=== PATIENT | female | born 1970 | race Caucasian/White ===

== ENCOUNTER → 2020-02-25 13:58 | Outpatient (BNVA) | payer OTHER, SELFPAY | PROVIDERS: Visit Provider Internal Medicine | DX: R51 Headache (principal); R11.10 Vomiting, unspecified; C50.919 Malignant neoplasm of unspecified site of unspecified female breast; R53.83 Other fatigue; R73.03 Prediabetes; D49.6 Neoplasm of unspecified behavior of brain; Z78.0 Asymptomatic menopausal state | CPT/HCPCS: 99205 ==

== ENCOUNTER 2020-02-25 14:57 | Emergency (ER) | payer OTHER, SELFPAY ==
[2020-02-25 15:01] VITALS: BP 135/65; PULSE 101; RESP 18; TEMP 36.9; O2SAT 96; BMI 35.4
[2020-02-25 15:42] LABS: Basophils # 0.1 10^3/uL (0.0-0.1); Basophils % 0.7 %; Eosinophils # 0.2 10^3/uL (0.0-0.8); Eosinophils % 1.5 %; Hematocrit 40.3 % (37.0-47.0); Hemoglobin 13.2 g/dL (11.5-15.3); Lymphocytes # 2.5 10^3/uL (0.8-4.8); Lymphocytes % 25.1 %; Mean Corpuscular HGB Conc 32.8 g/dL (30.0-36.0); Mean Corpuscular Hemoglobin 28.8 pg (28.0-34.0); Mean Platelet Volume 9.5 fL (7.4-10.4); Monocytes # 0.6 10^3/uL (0.2-0.9); Monocytes % 6.2 %; Neutrophils # 6.62 10^3/uL (1.8-7.7); Neutrophils % 66.3 %; Nucleated Red Blood Cells % 0 %; Platelet Count 404 10^3/cmm (130-400); Red Blood Count 4.58 10^6/uL (4.1-5.3); Red Cell Distribution Width 13.5 % (12.1-15.1)
--- NOTE | 2020-02-25 15:44 | W.ED.HA ---
Documented by User: FAYE Foster 02/25/20 15:46 HPI - Headache General: Chief Complaint: Headache Stated Complaint: sob Time Seen by Provider: 02/25/20 15:44 History of Present Illness: HPI Narrative: Patient complains with daily headaches since being placed on Effexor by [employer]. Patient is stopped the medication her headaches have continued and she is vomiting now. Mother of brain tumor age 40. This patient's had a history of breast cancer. Are concerned about possible tumor. Is having some balance problems presently. 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 Patient says she vomits when her headache gets real bad has no history of migraines. MD elicited complaint: headache Onset (ago): week(s) Onset description: gradually (Since starting medication) Location: band-like Severity: moderate Quality & Timing: aching and steady Associated symptoms: Reports no associated symptoms, nausea and vomiting; Deny chest pain, fever(s) or rash Review of Systems Narrative: Fatigue Const: Denies: fever(s), chills or body aches Eyes: Denies: change in vision or blurry vision ENMT: Denies: throat pain or nasal congestion Card: Denies: chest pain or dyspnea on exertion Resp: Denies: dyspnea, productive cough or non-productive cough GI: Reports: nausea and vomiting; Denies: abdominal pain Musc: Denies: extremity pain Skin/Breast: Denies: rash Neuro: Reports: headache(s) Psych: Denies: anxiety or depression Walter/Lymph: Denies: easy bruising PFSH ED PFSH: Medical History (Updated 02/25/20 @ 18:06 by Tita Ford MD) Breast cancer in female Surgical History Hx of mastectomy Family History Mother Cancer brain Father Pulmonary fibrosis Social History Smoking and tobacco status: never smoked Second hand smoke exposure: No Alcohol intake: never Physical Exam Const: COMMON NORMALS: no acute distress, average body habitus and patient oriented x3 HENMT: COMMON NORMALS: normocephalic HEAD & SCALP: normal to inspection and normocephalic FACE & SINUS: normal facial exam Eye: COMMON NORMALS: conjunctivae normal GENERAL EYE: appearance normal, both eyes and all related structures CONJUNCTIVA: Yes conjunctivae normal Neck/C-Spine: COMMON NORMALS: no JVD Chest: COMMONS NORMALS: normal inspection of the chest Resp: COMMON NORMALS: normal respiratory effort and clear to auscultation bilaterally AUSCULTATION: clear to auscultation bilaterally Cardio: COMMON NORMALS: no JVD, regular rate and regular rhythm RATE: regular rate RHYTHM: regular rhythm GI: COMMON NORMALS: Normal to inspection, nondistended, normoactive bowel sounds present Extremity: COMMON NORMALS: normal to inspection and full ROM Neuro: COMMON NORMALS: patient oriented x3 Course Vital Signs: Vital signs: Vital Signs Temperature 98.4 F 02/25/20 17:59 Pulse Rate 75 02/25/20 17:59 Respiratory Rate 20 H 02/25/20 17:59 Blood Pressure 143/97 02/25/20 17:59 Pulse Oximetry 99 02/25/20 17:59 MDM - Headache Lab Data: Labs: Lab Results 02/25/20 02/25/20 Range/Units 15:34 15:34 WBC 10.0 (4.0-10.0) 10^3/ uL RBC 4.58 (4.1-5.3) 10^6/u L Hgb 13.2 (11.5-15.3) g/dL Hct 40.3 (37.0-47.0) % MCV 88.0 (81-99) fL MCH 28.8 (28.0-34.0) pg MCHC 32.8 (30.0-36.0) g/dL RDW 13.5 (12.1-15.1) % Plt Count 404 H (130-400) 10^3/c mm MPV 9.5 (7.4-10.4) fL Neut % (Auto) 66.3 % Lymph % (Auto) 25.1 % Garden % (Auto) 6.2 % Eos % (Auto) 1.5 % Baso % (Auto) 0.7 % Neut # (Auto) 6.62 (1.8-7.7) 10^3/u L Lymph # (Auto) 2.5 (0.8-4.8) 10^3/u L Garden # (Auto) 0.6 (0.2-0.9) 10^3/u L Eos # (Auto) 0.2 (0.0-0.8) 10^3/u L Baso # (Auto) 0.1 (0.0-0.1) 10^3/u L Nucleated RBC % (a uto) 0 % Nucleated RBCs # 0.0 /100WBC Sodium 141 (136-145) mmol/L Potassium 3.5 (3.5-5.1) mmol/L Chloride 106 (98-107) mmol/L Carbon Dioxide 23 (22-29) mmol/L Anion Gap 15.5 (5-19) BUN 22 H (6-20) mg/dL Creatinine 0.8 (0.5-0.9) mg/dL GFR Calculation 75.9 L (90-130) mL/min Glucose 131 H (65-115) mg/dL Calculated Osmolal ity 290 (285-295) mOsm/k g Calcium 9.0 (8.5-10.5) mg/dL Total Bilirubin 0.2 (0.15-1.2) mg/dL AST 20 (0-32) U/L ALT 29 (0-33) U/L Alkaline Phosphata se 93 (35-105) IU/L Total Protein 7.0 (6.6-8.7) g/dL Albumin 4.2 (3.5-5.2) g/dL Globulin 2.8 (1.3-4.6) g/dL Discharge Plan Discharge Prescriptions: No Action No Known Home Medications RF: 0 Discharge Date/Time: 02/25/20 18:58 Coding Level of Care Code ED [employer]p [employer] for [employer] Fwd Exam Comprehensive Documented by User: Adrienne Chopra MD 02/28/20 06:19 HPI - Headache General: Chief Complaint: Headache Stated Complaint: sob Time Seen by Provider: 02/25/20 15:44 PFSH ED PFSH: Medical History (Updated 02/25/20 @ 18:06 by Tita Ford MD) Breast cancer in female Surgical History Hx of mastectomy Family History Mother Cancer brain Father Pulmonary fibrosis Social History Smoking and tobacco status: never smoked Second hand smoke exposure: No Alcohol intake: never Course ED course: I took a call from Dr. Ford about this patient that she was sending over for head CT. Since she was in the ED have been seeing her with Adi. CT showed some masses and a contrast CT was also done. I am awaiting the official read on that. Reevaluation(s): Reevaluation #1: Spoke with the patient about the CT results. They are reading multiple cystic lesions consistent with either abscess or cystic neoplastic disease. Given the patient's history of breast cancer metastases are obviously very concerning. Additionally she has a family history of her mother dying of a brain tumor at a young age. I spoke to Dr. Alvaro Henley, neurosurgery at [facility]. He would like the patient sent to the ED for further evaluation and potentially emergent treatment. I spoke with Dr. Sin in the ER and he is excepted the patient in transfer. Time: 17:41 Vital Signs: Vital signs: Vital Signs Temperature 98.4 F 02/25/20 17:59 Pulse Rate 75 02/25/20 17:59 Respiratory Rate 20 H 02/25/20 17:59 Blood Pressure 143/97 02/25/20 17:59 Pulse Oximetry 99 02/25/20 17:59 MDM - Headache Lab Data: Labs: Lab Results 02/25/20 02/25/20 Range/Units 15:34 15:34 WBC 10.0 (4.0-10.0) 10^3/ uL RBC 4.58 (4.1-5.3) 10^6/u L Hgb 13.2 (11.5-15.3) g/dL Hct 40.3 (37.0-47.0) % MCV 88.0 (81-99) fL MCH 28.8 (28.0-34.0) pg MCHC 32.8 (30.0-36.0) g/dL RDW 13.5 (12.1-15.1) % Plt Count 404 H (130-400) 10^3/c mm MPV 9.5 (7.4-10.4) fL Neut % (Auto) 66.3 % Lymph % (Auto) 25.1 % Garden % (Auto) 6.2 % Eos % (Auto) 1.5 % Baso % (Auto) 0.7 % Neut # (Auto) 6.62 (1.8-7.7) 10^3/u L Lymph # (Auto) 2.5 (0.8-4.8) 10^3/u L Garden # (Auto) 0.6 (0.2-0.9) 10^3/u L Eos # (Auto) 0.2 (0.0-0.8) 10^3/u L Baso # (Auto) 0.1 (0.0-0.1) 10^3/u L Nucleated RBC % (a uto) 0 % Nucleated RBCs # 0.0 /100WBC Sodium 141 (136-145) mmol/L Potassium 3.5 (3.5-5.1) mmol/L Chloride 106 (98-107) mmol/L Carbon Dioxide 23 (22-29) mmol/L Anion Gap 15.5 (5-19) BUN 22 H (6-20) mg/dL Creatinine 0.8 (0.5-0.9) mg/dL GFR Calculation 75.9 L (90-130) mL/min Glucose 131 H (65-115) mg/dL Calculated Osmolal ity 290 (285-295) mOsm/k g Calcium 9.0 (8.5-10.5) mg/dL Total Bilirubin 0.2 (0.15-1.2) mg/dL AST 20 (0-32) U/L ALT 29 (0-33) U/L Alkaline Phosphata se 93 (35-105) IU/L Total Protein 7.0 (6.6-8.7) g/dL Albumin 4.2 (3.5-5.2) g/dL Globulin 2.8 (1.3-4.6) g/dL Discharge Plan Discharge Prescriptions: No Action No Known Home Medications RF: 0 Discharge Date/Time: 02/25/20 18:58 Coding Level of Care Code ED [employer] Fwd Exam Comprehensive
[2020-02-25 16:05] LABS: Alanine Aminotransferase 29 U/L (0-33); Albumin Level 4.2 g/dL (3.5-5.2); Alkaline Phosphatase 93 IU/L (35-105); Anion Gap 15.5 (5-19); Aspartate Amino Transferase 20 U/L (0-32); Blood Urea Nitrogen 22 mg/dL (6-20); Carbon Dioxide 23 mmol/L (22-29); Chloride 106 mmol/L (98-107); Globulin 2.8 g/dL (1.3-4.6); Glomerular Filtration Rate 75.9 mL/min (90-130); Glucose 131 mg/dL (65-115); Osmolality Calculated 290 mOsm/kg (285-295); Potassium 3.5 mmol/L (3.5-5.1); Sodium 141 mmol/L (136-145); Total Bilirubin 0.2 mg/dL (0.15-1.2)
--- NOTE | 2020-02-25 16:28 | CT_ITS ---
WS: [id number] EXAM: CT head wo/w con [id number] DATE OF EXAMINATION: 02/25/2020, 1617 hours COMPARISON: None. HISTORY: 49 years old with headaches, dizziness, visual disturbances for the last 2 weeks. Nausea and vomiting . 3 of breast cancer. TECHNIQUE: Thin slice imaging obtained through the brain first without the utilization of contrast. Images viewe d in brain, subdural and bone window with reconstructions. Subsequently 95 mL Omnipaque 300 was admin istered with repeat imaging through the brain with images viewed in brain and subdural window. CONTRAST: 95 mL of Omnipaque 300 DLP: 673.[address] scans at [facility] use at least one of these dose optimization techniques: automat ed exposure control; mA and/or kV adjustment per patient size (includes targeted exams where dose is matched to clinical indication); or iterative reconstruction. FINDINGS: On the noncontrast examination there are slight changes of cerebellar atrophy. Cerebellum and brainst em are otherwise normal in appearance. There is a large low-density mass lesion involving the right f rontal lobe which contains areas of calcification. Appears to have a septated margin or adjacent dupl icated daughter cyst. Midline shift to the left of 2.2 cm with imaging findings of early subfalcine h erniation felt to be present. No uncal herniation is identified. There is effacement of sulci within both frontal lobes as well as the right temporal lobe. There is slight effacement of left frontal and temporal sulci as well. In the high left frontoparietal juncture. There is a second lobulated low-de nsity mass lesion 2.6 x 1.8 x 2.7 cm in size. The mass lesion within the right frontal lobe is 4.4 x 5.1 x 7.1 significance in size. Along the superior margin there is an additional mass lesion which ap pears to be hypertension contains calcifications estimated at approximately 2.8 x 1.9 x 1.9 cm in siz e. Slight dilatation to the lateral ventricles demonstrated. Most prominent on the right. Question if there is some developing obstructive hydrocephalus. With the administration of contrast there is rim enhancement of the lesions within the right frontal lobe in both locations as well as the lesion wit hin the left frontoparietal juncture. Differential includes multiple sites of intraparenchymal absces s formation (considered most likely) versus cystic neoplasm or cystic breast metastatic disease. [facility] neurosurgeon evaluation recommended. No findings of hemorrhage on the noncontrast exam. No acute skull abnormality is demonstrated. CT/CT head wo/w con [id number] IMPRESSION: Grossly abnormal examination. Multiple lesions within the brain demonstrated. Large mass lesion right frontal lobe causing extensive mass effect in the right frontal lobe with midline shift to the left of 2.2 cm with early subfalcine he rniation. Slight dilatation to the ventricular system. Emergent neurosurgeon evaluation recommended. Critical value findings relayed to Dr. Chopra in the emergency department 02/25/20 20 1718 hours.
[2020-02-25] MEDS: iohexol 300 mg/mL 100 mL Btl IV (16:54)
--- NOTE | 2020-02-25 16:57 | PC.NURSE ---
patient to ct
[2020-02-25 17:57] VITALS: BP 143/97; PULSE 75; RESP 20; TEMP 36.9; O2SAT 99
[2020-02-25 17:59] VITALS: BP 143/97; PULSE 75; RESP 20; TEMP 36.9; O2SAT 99
== END 2020-02-25 18:58 ==
PROVIDERS: Emergency Provider Emergency Medicine
DX: R51 Headache (principal); Z85.3 Personal history of malignant neoplasm of breast
CPT/HCPCS: 12345; 36415; 70450; 70470; 80053; 85025; 99282; 99285; Q9967

== ENCOUNTER 2020-04-11 10:02 | Outpatient (CLI) | payer OTHER, SELFPAY ==
[2020-04-11 12:38] LABS: Anion Gap 17.2 (5-19); Blood Urea Nitrogen 12 mg/dL (6-20); Calcium 9.1 mg/dL (8.5-10.5); Carbon Dioxide 22 mmol/L (22-29); Chloride 103 mmol/L (98-107); Glomerular Filtration Rate 75.9 mL/min (90-130); Glucose 79 mg/dL (65-115); Osmolality Calculated 285 mOsm/kg (285-295); Potassium 4.2 mmol/L (3.5-5.1); Sodium 138 mmol/L (136-145); Vancomycin Trough 20.9 ug/mL (10-15)
== END 2020-04-11 10:03 | disposition home or self-care (01) ==
LOC: LAB 10:04
PROVIDERS: Visit Provider Internal Medicine Infectious Disease
DX: A49.02 Methicillin resistant Staphylococcus aureus infection, unspecified site (principal)
CPT/HCPCS: 80048; 80202

== ENCOUNTER 2020-04-14 09:25 | Outpatient (CLI) | payer OTHER, SELFPAY ==
[2020-04-14 10:12] LABS: Anion Gap 13.9 (5-19); Blood Urea Nitrogen 9 mg/dL (6-20); Calcium 9.1 mg/dL (8.5-10.5); Carbon Dioxide 24 mmol/L (22-29); Chloride 105 mmol/L (98-107); Glomerular Filtration Rate 66.3 mL/min (90-130); Glucose 88 mg/dL (65-115); Osmolality Calculated 286 mOsm/kg (285-295); Potassium 3.9 mmol/L (3.5-5.1); Sodium 139 mmol/L (136-145); Vancomycin Trough 11.6 ug/mL (10-15)
== END 2020-04-14 09:26 | disposition home or self-care (01) ==
LOC: LAB 09:27
PROVIDERS: Visit Provider Internal Medicine Infectious Disease
DX: Z79.899 Other long term (current) drug therapy (principal); A49.02 Methicillin resistant Staphylococcus aureus infection, unspecified site
CPT/HCPCS: 80048; 80202

== ENCOUNTER 2020-04-18 10:18 | Outpatient (CLI) | payer OTHER, SELFPAY ==
[2020-04-18 10:35] LABS: Basophils % 0.5 %; Eosinophils # 0.1 10^3/uL (0.0-0.8); Eosinophils % 1.7 %; Hematocrit 34.4 % (37.0-47.0); Hemoglobin 11.1 g/dL (11.5-15.3); Lymphocytes # 1.1 10^3/uL (0.8-4.8); Lymphocytes % 25.7 %; Mean Corpuscular HGB Conc 32.3 g/dL (30.0-36.0); Mean Corpuscular Volume 89.8 fL (81-99); Mean Platelet Volume 9.8 fL (7.4-10.4); Monocytes # 0.1 10^3/uL (0.2-0.9); Monocytes % 1.2 %; Neutrophils # 2.94 10^3/uL (1.8-7.7); Neutrophils % 70.4 %; Nucleated Red Blood Cells % 0 %; Platelet Count 373 10^3/cmm (130-400); Red Blood Count 3.83 10^6/uL (4.1-5.3); White Blood Count 4.2 10^3/uL (4.0-10.0)
[2020-04-18 10:53] LABS: Vancomycin Trough 7.6 ug/mL (10-15)
[2020-04-18 11:01] LABS: Alanine Aminotransferase 75 U/L (0-33); Albumin Level 3.7 g/dL (3.5-5.2); Alkaline Phosphatase 80 IU/L (35-105); Aspartate Amino Transferase 28 U/L (0-32); Blood Urea Nitrogen 21 mg/dL (6-20); Calcium 8.8 mg/dL (8.5-10.5); Carbon Dioxide 22 mmol/L (22-29); Chloride 105 mmol/L (98-107); Globulin 2.2 g/dL (1.3-4.6); Glomerular Filtration Rate 75.9 mL/min (90-130); Glucose 81 mg/dL (65-115); Osmolality Calculated 294 mOsm/kg (285-295); Sodium 141 mmol/L (136-145); Total Bilirubin 0.5 mg/dL (0.15-1.2); Total Protein 5.9 g/dL (6.6-8.7)
[2020-04-18 11:14] LABS: Anion Gap 17.6 (5-19); Potassium 3.6 mmol/L (3.5-5.1)
== END 2020-04-18 10:19 | disposition home or self-care (01) ==
LOC: LAB 10:20
PROVIDERS: Visit Provider Internal Medicine Infectious Disease
DX: Z79.899 Other long term (current) drug therapy (principal); A49.02 Methicillin resistant Staphylococcus aureus infection, unspecified site; C80.1 Malignant (primary) neoplasm, unspecified
CPT/HCPCS: 80053; 80202; 85025; 86140

== ENCOUNTER 2020-04-21 10:41 | Outpatient (CLI) | payer OTHER, SELFPAY ==
[2020-04-21 11:10] LABS: Basophils # 0.1 10^3/uL (0.0-0.1); Eosinophils # 0.3 10^3/uL (0.0-0.8); Eosinophils % 27.7 %; Hematocrit 33.4 % (37.0-47.0); Hemoglobin 10.8 g/dL (11.5-15.3); Lymphocytes # 0.6 10^3/uL (0.8-4.8); Lymphocytes % 46.2 %; Mean Corpuscular HGB Conc 32.3 g/dL (30.0-36.0); Mean Corpuscular Volume 89.8 fL (81-99); Monocytes % 2.5 %; Neutrophils % 16.9 %; Nucleated Red Blood Cells % 0 %; Platelet Count 316 10^3/cmm (130-400); Red Blood Count 3.72 10^6/uL (4.1-5.3); Red Cell Distribution Width 13.5 % (12.1-15.1); White Blood Count 1.2 10^3/uL (4.0-10.0)
[2020-04-21 11:31] LABS: Alanine Aminotransferase 119 U/L (0-33); Albumin Level 3.7 g/dL (3.5-5.2); Alkaline Phosphatase 87 IU/L (35-105); Anion Gap 17.1 (5-19); Aspartate Amino Transferase 46 U/L (0-32); Blood Urea Nitrogen 16 mg/dL (6-20); Calcium 9.1 mg/dL (8.5-10.5); Carbon Dioxide 22 mmol/L (22-29); Chloride 102 mmol/L (98-107); Globulin 2.5 g/dL (1.3-4.6); Glomerular Filtration Rate 88.6 mL/min (90-130); Glucose 95 mg/dL (65-115); Osmolality Calculated 285 mOsm/kg (285-295); Potassium 4.1 mmol/L (3.5-5.1); Sodium 137 mmol/L (136-145); Total Bilirubin 0.5 mg/dL (0.15-1.2); Total Protein 6.2 g/dL (6.6-8.7)
[2020-04-21 11:55] LABS: Vancomycin Trough 11.7 ug/mL (10-15)
[2020-04-21 12:27] LABS: Slide Review Slide Review Perform
== END 2020-04-21 10:42 | disposition home or self-care (01) ==
LOC: LAB 10:42
PROVIDERS: Visit Provider Internal Medicine Infectious Disease
DX: A49.02 Methicillin resistant Staphylococcus aureus infection, unspecified site (principal); Z79.899 Other long term (current) drug therapy
CPT/HCPCS: 80053; 80202; 85025

== ENCOUNTER 2020-05-19 14:34 | Outpatient (RCR) | payer OTHER, SELFPAY ==
[2020-05-19 15:13] LABS: Basophils # 0.1 10^3/uL (0.0-0.1); Basophils % 0.8 %; Eosinophils % 0.4 %; Hemoglobin 10.3 g/dL (11.5-15.3); Lymphocytes # 0.9 10^3/uL (0.8-4.8); Lymphocytes % 11.3 %; Mean Corpuscular HGB Conc 31.2 g/dL (30.0-36.0); Mean Corpuscular Hemoglobin 28.5 pg (28.0-34.0); Mean Corpuscular Volume 91.4 fL (81-99); Mean Platelet Volume 10.5 fL (7.4-10.4); Monocytes # 0.5 10^3/uL (0.2-0.9); Monocytes % 6.2 %; Neutrophils # 6.24 10^3/uL (1.8-7.7); Neutrophils % 80.8 %; Nucleated Red Blood Cells % 0 %; Platelet Count 277 10^3/cmm (130-400); Red Blood Count 3.61 10^6/uL (4.1-5.3); Red Cell Distribution Width 16.2 % (12.1-15.1); White Blood Count 7.7 10^3/uL (4.0-10.0)
== END 2020-06-06 23:59 | disposition home or self-care (01) ==
LOC: LAB 14:34
PROVIDERS: Visit Provider Internal Medicine
DX: A49.02 Methicillin resistant Staphylococcus aureus infection, unspecified site (principal); C80.1 Malignant (primary) neoplasm, unspecified; Z92.21 Personal history of antineoplastic chemotherapy
CPT/HCPCS: 85025

== ENCOUNTER 2020-05-26 15:49 | Outpatient (CLI) | payer OTHER, SELFPAY ==
[2020-05-26 16:21] LABS: Basophils % 0.2 %; Eosinophils % 0.7 %; Hemoglobin 9.5 g/dL (11.5-15.3); Lymphocytes # 1.1 10^3/uL (0.8-4.8); Lymphocytes % 26.4 %; Mean Corpuscular HGB Conc 30.6 g/dL (30.0-36.0); Mean Corpuscular Hemoglobin 28.3 pg (28.0-34.0); Mean Corpuscular Volume 92.3 fL (81-99); Mean Platelet Volume 9.9 fL (7.4-10.4); Monocytes # 0.5 10^3/uL (0.2-0.9); Monocytes % 11.5 %; Neutrophils # 2.49 10^3/uL (1.8-7.7); Nucleated Red Blood Cells % 0 %; Platelet Count 340 10^3/cmm (130-400); Red Blood Count 3.36 10^6/uL (4.1-5.3); Red Cell Distribution Width 16.5 % (12.1-15.1); White Blood Count 4.1 10^3/uL (4.0-10.0)
== END 2020-05-26 15:50 | disposition home or self-care (01) ==
LOC: LAB 15:51
PROVIDERS: Visit Provider Internal Medicine
DX: C80.1 Malignant (primary) neoplasm, unspecified (principal)
CPT/HCPCS: 85025

== ENCOUNTER 2020-06-03 11:23 | Outpatient (CLI) | payer OTHER, SELFPAY ==
[2020-06-03 11:38] LABS: Basophils # 0.1 10^3/uL (0.0-0.1); Basophils % 1.1 %; Eosinophils # 0.1 10^3/uL (0.0-0.8); Eosinophils % 1.8 %; Hemoglobin 9.7 g/dL (11.5-15.3); Lymphocytes # 0.8 10^3/uL (0.8-4.8); Lymphocytes % 11.4 %; Mean Corpuscular HGB Conc 32.3 g/dL (30.0-36.0); Mean Corpuscular Hemoglobin 28.8 pg (28.0-34.0); Mean Platelet Volume 10.8 fL (7.4-10.4); Monocytes # 0.8 10^3/uL (0.2-0.9); Monocytes % 12.4 %; Neutrophils # 3.83 10^3/uL (1.8-7.7); Neutrophils % 58.1 %; Nucleated Red Blood Cells % 0 %; Platelet Count 342 10^3/cmm (130-400); Red Blood Count 3.37 10^6/uL (4.1-5.3); Red Cell Distribution Width 16.2 % (12.1-15.1); White Blood Count 6.6 10^3/uL (4.0-10.0)
[2020-06-03 12:34] LABS: Slide Review Slide Review Perform
== END 2020-06-03 11:24 | disposition home or self-care (01) ==
PROVIDERS: Visit Provider Internal Medicine
DX: C80.1 Malignant (primary) neoplasm, unspecified (principal)
CPT/HCPCS: 85025

== ENCOUNTER 2020-06-09 15:35 | Outpatient (CLI) | payer OTHER, SELFPAY ==
[2020-06-09 15:50] LABS: Basophils % 0.3 %; Hematocrit 28.9 % (37.0-47.0); Hemoglobin 9.5 g/dL (11.5-15.3); Lymphocytes % 16.4 %; Mean Corpuscular HGB Conc 32.9 g/dL (30.0-36.0); Mean Corpuscular Hemoglobin 28.5 pg (28.0-34.0); Mean Corpuscular Volume 86.8 fL (81-99); Mean Platelet Volume 10.5 fL (7.4-10.4); Monocytes # 0.4 10^3/uL (0.2-0.9); Monocytes % 6.6 %; Neutrophils # 4.75 10^3/uL (1.8-7.7); Neutrophils % 74.8 %; Nucleated Red Blood Cells % 0 %; Platelet Count 463 10^3/cmm (130-400); Red Blood Count 3.33 10^6/uL (4.1-5.3); White Blood Count 6.4 10^3/uL (4.0-10.0)
== END 2020-06-09 15:36 | disposition home or self-care (01) ==
PROVIDERS: Visit Provider Internal Medicine
DX: C80.1 Malignant (primary) neoplasm, unspecified (principal)
CPT/HCPCS: 85025

== ENCOUNTER 2020-06-16 13:24 | Outpatient (CLI) | payer OTHER, SELFPAY ==
[2020-06-16 13:44] LABS: Basophils # 0.1 10^3/uL (0.0-0.1); Basophils % 0.9 %; Eosinophils # 0.1 10^3/uL (0.0-0.8); Eosinophils % 2.3 %; Hematocrit 30.9 % (37.0-47.0); Hemoglobin 9.7 g/dL (11.5-15.3); Lymphocytes # 0.9 10^3/uL (0.8-4.8); Lymphocytes % 16.2 %; Mean Corpuscular HGB Conc 31.4 g/dL (30.0-36.0); Mean Corpuscular Hemoglobin 28.5 pg (28.0-34.0); Mean Corpuscular Volume 90.9 fL (81-99); Monocytes # 0.6 10^3/uL (0.2-0.9); Monocytes % 11.5 %; Neutrophils # 3.66 10^3/uL (1.8-7.7); Neutrophils % 68.7 %; Nucleated Red Blood Cells % 0 %; Platelet Count 517 10^3/cmm (130-400); Red Cell Distribution Width 16.3 % (12.1-15.1); White Blood Count 5.3 10^3/uL (4.0-10.0)
== END 2020-06-16 13:25 | disposition home or self-care (01) ==
LOC: LAB 13:26
PROVIDERS: Visit Provider Internal Medicine
DX: C80.1 Malignant (primary) neoplasm, unspecified (principal)
CPT/HCPCS: 85025

== ENCOUNTER 2020-06-23 13:54 | Outpatient (CLI) | payer OTHER, SELFPAY ==
[2020-06-23 14:15] LABS: Hemoglobin 8.9 g/dL (11.5-15.3); Mean Corpuscular HGB Conc 30.7 g/dL (30.0-36.0); Mean Corpuscular Hemoglobin 29.4 pg (28.0-34.0); Mean Corpuscular Volume 95.7 fL (81-99); Mean Platelet Volume 10.5 fL (7.4-10.4); Platelet Count 448 10^3/cmm (130-400); Red Blood Count 3.03 10^6/uL (4.1-5.3); Red Cell Distribution Width 16.6 % (12.1-15.1)
[2020-06-23 23:25] LABS: Absolute Segmented Neutrophil 11.6 10/cmm (1.6-7.1); Band Neutrophils Absolute 0.1 10^3/cmm (0.0-1.2); Eosinophils 0 %; Lymphocytes 9 %; Segmented Neutrophils 83 %; Total Cells Counted 100 (0-100)
[2020-06-23 23:26] LABS: Absolute Neutrophil 11.8 10^3/cmm (1.4-6.5); Platelet Estimate Normal (Normal)
== END 2020-06-23 13:55 | disposition home or self-care (01) ==
PROVIDERS: Visit Provider Internal Medicine
DX: C80.1 Malignant (primary) neoplasm, unspecified (principal)
CPT/HCPCS: 85007; 85027

== ENCOUNTER 2020-06-30 14:08 | Outpatient (CLI) | payer OTHER, SELFPAY ==
[2020-06-30 14:23] LABS: Basophils % 0.6 %; Eosinophils # 0.3 10^3/uL (0.0-0.8); Eosinophils % 4.8 %; Hematocrit 36.9 % (37.0-47.0); Hemoglobin 11.5 g/dL (11.5-15.3); Lymphocytes # 1.3 10^3/uL (0.8-4.8); Lymphocytes % 18.9 %; Mean Corpuscular HGB Conc 31.2 g/dL (30.0-36.0); Mean Corpuscular Hemoglobin 29.3 pg (28.0-34.0); Mean Corpuscular Volume 93.9 fL (81-99); Mean Platelet Volume 9.8 fL (7.4-10.4); Monocytes # 0.6 10^3/uL (0.2-0.9); Monocytes % 8.6 %; Neutrophils # 4.48 10^3/uL (1.8-7.7); Neutrophils % 66.7 %; Nucleated Red Blood Cells % 0 %; Platelet Count 377 10^3/cmm (130-400); Red Blood Count 3.93 10^6/uL (4.1-5.3); Red Cell Distribution Width 15.9 % (12.1-15.1); White Blood Count 6.7 10^3/uL (4.0-10.0)
== END 2020-06-30 14:09 | disposition home or self-care (01) ==
PROVIDERS: Visit Provider Internal Medicine
DX: C80.1 Malignant (primary) neoplasm, unspecified (principal)
CPT/HCPCS: 85025

== ENCOUNTER 2020-07-21 16:51 | Outpatient (CLI) | payer OTHER, SELFPAY ==
[2020-07-21 17:09] LABS: Basophils # 0.1 10^3/uL (0.0-0.1); Basophils % 0.8 %; Eosinophils # 0.1 10^3/uL (0.0-0.8); Eosinophils % 2.2 %; Hematocrit 36.2 % (37.0-47.0); Hemoglobin 11.4 g/dL (11.5-15.3); Lymphocytes # 1.8 10^3/uL (0.8-4.8); Lymphocytes % 28.8 %; Mean Corpuscular HGB Conc 31.5 g/dL (30.0-36.0); Mean Corpuscular Hemoglobin 29.6 pg (28.0-34.0); Mean Platelet Volume 10.3 fL (7.4-10.4); Monocytes # 0.5 10^3/uL (0.2-0.9); Monocytes % 7.9 %; Neutrophils # 3.78 10^3/uL (1.8-7.7); Nucleated Red Blood Cells % 0 %; Platelet Count 431 10^3/cmm (130-400); Red Blood Count 3.85 10^6/uL (4.1-5.3); Red Cell Distribution Width 14.6 % (12.1-15.1); White Blood Count 6.3 10^3/uL (4.0-10.0)
== END 2020-07-21 16:52 | disposition home or self-care (01) ==
PROVIDERS: Visit Provider Internal Medicine
DX: C80.1 Malignant (primary) neoplasm, unspecified (principal)
CPT/HCPCS: 85025

== ENCOUNTER 2020-08-11 12:10 | Outpatient (CLI) | payer OTHER, SELFPAY ==
[2020-08-11 12:39] LABS: Hematocrit 26.9 % (37.0-47.0); Hemoglobin 8.8 g/dL (11.5-15.3); Mean Corpuscular HGB Conc 32.7 g/dL (30.0-36.0); Mean Corpuscular Hemoglobin 29.3 pg (28.0-34.0); Mean Corpuscular Volume 89.7 fL (81-99); Mean Platelet Volume 10.9 fL (7.4-10.4); Platelet Count 282 10^3/cmm (130-400); Red Cell Distribution Width 13.8 % (12.1-15.1); White Blood Count 24.9 10^3/uL (4.0-10.0)
[2020-08-11 13:26] LABS: Absolute Neutrophil 19.9 10^3/cmm (1.4-6.5); Absolute Segmented Neutrophil 14.9 10/cmm (1.6-7.1); Eosinophils 0 %; Lymphocytes 7 %; Monocytes Absolute 2.5 10^3/cmm (0.1-0.6); Platelet Estimate Normal (Normal); Segmented Neutrophils 60 %; Slide Review Slide Review Perform; Total Cells Counted 100 (0-100)
== END 2020-08-11 12:11 | disposition home or self-care (01) ==
LOC: LAB 12:12
PROVIDERS: Visit Provider Internal Medicine
DX: C71.9 Malignant neoplasm of brain, unspecified (principal)
CPT/HCPCS: 85007; 85025

== ENCOUNTER 2020-08-19 17:29 | Outpatient (CLI) | payer OTHER, SELFPAY ==
[2020-08-19 17:46] LABS: Basophils # 0.1 10^3/uL (0.0-0.1); Basophils % 0.8 %; Eosinophils % 0.2 %; Hematocrit 35.1 % (37.0-47.0); Hemoglobin 11.4 g/dL (11.5-15.3); Lymphocytes # 1.4 10^3/uL (0.8-4.8); Lymphocytes % 12.3 %; Mean Corpuscular HGB Conc 32.5 g/dL (30.0-36.0); Mean Corpuscular Hemoglobin 28.8 pg (28.0-34.0); Mean Corpuscular Volume 88.6 fL (81-99); Mean Platelet Volume 10.1 fL (7.4-10.4); Monocytes # 0.7 10^3/uL (0.2-0.9); Monocytes % 6.4 %; Neutrophils # 8.86 10^3/uL (1.8-7.7); Neutrophils % 79.8 %; Nucleated Red Blood Cells % 0 %; Platelet Count 541 10^3/cmm (130-400); Red Blood Count 3.96 10^6/uL (4.1-5.3); Red Cell Distribution Width 13.9 % (12.1-15.1); White Blood Count 11.1 10^3/uL (4.0-10.0)
== END 2020-08-19 17:30 | disposition home or self-care (01) ==
LOC: LAB 17:31
PROVIDERS: Visit Provider Internal Medicine
DX: C80.1 Malignant (primary) neoplasm, unspecified (principal)
CPT/HCPCS: 85025

== ENCOUNTER 2020-09-08 15:43 | Outpatient (CLI) | payer OTHER, SELFPAY ==
[2020-09-08 17:10] LABS: Basophils # 0.1 10^3/uL (0.0-0.1); Basophils % 0.7 %; Eosinophils # 0.2 10^3/uL (0.0-0.8); Eosinophils % 2.2 %; Hematocrit 35.2 % (37.0-47.0); Hemoglobin 11.1 g/dL (11.5-15.3); Lymphocytes # 1.6 10^3/uL (0.8-4.8); Lymphocytes % 20.2 %; Mean Corpuscular HGB Conc 31.5 g/dL (30.0-36.0); Mean Corpuscular Hemoglobin 28.9 pg (28.0-34.0); Mean Corpuscular Volume 91.7 fL (81-99); Mean Platelet Volume 10.5 fL (7.4-10.4); Monocytes # 0.5 10^3/uL (0.2-0.9); Monocytes % 6.7 %; Neutrophils # 5.64 10^3/uL (1.8-7.7); Nucleated Red Blood Cells % 0 %; Platelet Count 446 10^3/cmm (130-400); Red Blood Count 3.84 10^6/uL (4.1-5.3); Red Cell Distribution Width 13.7 % (12.1-15.1); White Blood Count 8.1 10^3/uL (4.0-10.0)
== END 2020-09-08 15:44 | disposition home or self-care (01) ==
PROVIDERS: Visit Provider Internal Medicine
DX: C80.1 Malignant (primary) neoplasm, unspecified (principal)
CPT/HCPCS: 85025

== ENCOUNTER 2020-09-15 16:30 | Outpatient (CLI) | payer OTHER, SELFPAY ==
[2020-09-15 17:00] LABS: Basophils # 0.1 10^3/uL (0.0-0.1); Basophils % 0.7 %; Eosinophils # 0.2 10^3/uL (0.0-0.8); Eosinophils % 2.8 %; Hematocrit 34.7 % (37.0-47.0); Hemoglobin 11.3 g/dL (11.5-15.3); Lymphocytes # 1.3 10^3/uL (0.8-4.8); Mean Corpuscular HGB Conc 32.6 g/dL (30.0-36.0); Mean Corpuscular Hemoglobin 29.3 pg (28.0-34.0); Mean Corpuscular Volume 89.9 fL (81-99); Mean Platelet Volume 10.2 fL (7.4-10.4); Monocytes # 0.6 10^3/uL (0.2-0.9); Monocytes % 7.6 %; Neutrophils # 5.38 10^3/uL (1.8-7.7); Neutrophils % 71.6 %; Nucleated Red Blood Cells % 0 %; Platelet Count 362 10^3/cmm (130-400); Red Blood Count 3.86 10^6/uL (4.1-5.3); Red Cell Distribution Width 13.2 % (12.1-15.1); White Blood Count 7.5 10^3/uL (4.0-10.0)
== END 2020-09-15 16:31 | disposition home or self-care (01) ==
PROVIDERS: Visit Provider Internal Medicine
DX: C80.1 Malignant (primary) neoplasm, unspecified (principal)
CPT/HCPCS: 85025

== ENCOUNTER → 2023-04-22 11:36 | Outpatient (BNVA) | payer OTHER, SELFPAY | PROVIDERS: Visit Provider Nurse Practitioner Family | DX: N39.0 Urinary tract infection, site not specified (principal); B37.2 Candidiasis of skin and nail | CPT/HCPCS: 81000 ==

== ENCOUNTER 2023-06-05 13:36 | Oncology outpatient (recurring) (ONCR) | payer OTHER, SELFPAY ==
[2023-05-09 14:15] VITALS: BP 132/77; PULSE 75; RESP 17; TEMP 37.2; O2SAT 92
[2023-05-09] MEDS: sodium chloride 0.9% 1,000 ML 999 ML IV (14:25)
[2023-05-09 15:01] LABS: Alanine Aminotransferase 180 U/L (0-33); Albumin Level 3.8 g/dL (3.5-5.2); Alkaline Phosphatase 113 U/L (35-105); Anion Gap 12.7 (5-19); Aspartate Amino Transferase 96 U/L (0-32); Blood Urea Nitrogen 26 mg/dL (6-20); Calcium 8.7 mg/dL (8.5-10.5); Carbon Dioxide 18 mmol/L (22-29); Chloride 117 mmol/L (98-107); Globulin 2.4 g/dL (1.3-4.6); Glomerular Filtration Rate 87.5 mL/min (90-130); Glucose 93 mg/dL (65-115); Osmolality Calculated 302 mOsm/kg (285-295); Potassium 3.7 mmol/L (3.5-5.1); Sodium 144 mmol/L (136-145); Total Bilirubin 0.2 mg/dL (0.15-1.2); Total Protein 6.2 g/dL (6.6-8.7)
[2023-05-09 15:57] VITALS: BP 124/73; PULSE 60; RESP 16; TEMP 36.5; O2SAT 98
[2023-05-13] MEDS: sodium chloride 0.9% 1,000 ML 999 ML IV (14:10)
[2023-05-13 15:23] VITALS: BP 137/67; PULSE 57; RESP 16; TEMP 36.4; O2SAT 100
[2023-05-15 14:32] VITALS: BP 109/73; PULSE 58; RESP 17; TEMP 35.9; O2SAT 99
[2023-05-15] MEDS: sodium chloride 0.9% 1,000 ML 700 ML IV (14:42)
[2023-05-15 16:36] VITALS: BP 126/85; PULSE 70; RESP 17; TEMP 36; O2SAT 99
[2023-05-17] MEDS: sodium chloride 0.9% 1,000 ML 999 ML IV (09:47)
[2023-05-17 09:57] VITALS: BP 116/79; PULSE 78; RESP 17; TEMP 36.6; O2SAT 99
[2023-05-17 11:30] VITALS: BP 117/77; PULSE 62; RESP 16; TEMP 36.1; O2SAT 99
[2023-05-20 14:10] VITALS: BP 124/83; PULSE 62; RESP 16; TEMP 36.5; O2SAT 99
[2023-05-20] MEDS: sodium chloride 0.9% 1,000 ML 999 ML IV (14:20)
[2023-05-20 14:46] LABS: Alanine Aminotransferase 49 U/L (0-33); Albumin Level 3.8 g/dL (3.5-5.2); Alkaline Phosphatase 99 U/L (35-105); Anion Gap 13.3 (5-19); Aspartate Amino Transferase 18 U/L (0-32); Blood Urea Nitrogen 19 mg/dL (6-20); Calcium 8.7 mg/dL (8.5-10.5); Carbon Dioxide 21 mmol/L (22-29); Chloride 111 mmol/L (98-107); Globulin 2.4 g/dL (1.3-4.6); Glomerular Filtration Rate 87.5 mL/min (90-130); Glucose 112 mg/dL (65-115); Osmolality Calculated 295 mOsm/kg (285-295); Potassium 4.3 mmol/L (3.5-5.1); Sodium 141 mmol/L (136-145); Total Bilirubin 0.3 mg/dL (0.15-1.2); Total Protein 6.2 g/dL (6.6-8.7)
[2023-05-20 15:37] VITALS: BP 100/63; PULSE 63; RESP 18; TEMP 36.6; O2SAT 98
[2023-05-22] MEDS: sodium chloride 0.9% 1,000 ML 999 ML IV (08:18)
[2023-05-22 08:27] VITALS: BP 114/73; PULSE 61; RESP 18; TEMP 36.6; O2SAT 98
[2023-05-22 09:29] VITALS: PULSE 61; RESP 18; TEMP 36.6; O2SAT 99
[2023-05-24] MEDS: sodium chloride 0.9% 1,000 ML 999 ML IV (09:28)
[2023-05-27] MEDS: sodium chloride 0.9% 1,000 ML 999 ML IV (13:50)
[2023-06-03 13:35] VITALS: PULSE 68; RESP 16; TEMP 36.4; O2SAT 95
[2023-06-03] MEDS: sodium chloride 0.9% 1,000 ML 999 ML IV (13:43)
[2023-06-03 15:00] VITALS: PULSE 62; RESP 16; TEMP 36.4; O2SAT 99
[2023-06-05] MEDS: sodium chloride 0.9% 1,000 ML 999 ML IV (14:22)
[2023-06-05 15:47] VITALS: BP 117/72; PULSE 63; RESP 16; TEMP 35.7; O2SAT 99
== END 2023-06-06 23:59 | disposition home or self-care (01) ==
PROVIDERS: Registered Nurse; PCP Internal Medicine; Visit Provider Internal Medicine
DX: E86.0 Dehydration (principal); R11.2 Nausea with vomiting, unspecified
CPT/HCPCS: 80053; 96360; 96361; J1642; J7030

== ENCOUNTER 2023-07-04 14:23 | Oncology outpatient (recurring) (ONCR) | payer OTHER, SELFPAY ==
[2023-06-07] MEDS: sodium chloride 0.9% 1,000 ML 999 ML IV (10:18)
[2023-06-07 11:30] VITALS: BP 105/69; PULSE 68; RESP 16; TEMP 37.3; O2SAT 99
[2023-06-10 13:50] VITALS: BP 116/75; PULSE 65; RESP 16; O2SAT 100
[2023-06-10] MEDS: sodium chloride 0.9% 1,000 ML 999 ML IV (13:55)
[2023-06-10 15:15] VITALS: BP 118/80; PULSE 55; RESP 16; O2SAT 91
[2023-06-12] MEDS: sodium chloride 0.9% 1,000 ML 999 ML IV (14:26)
[2023-06-12 15:45] VITALS: PULSE 65; RESP 16; O2SAT 100
[2023-06-14 09:10] VITALS: BP 106/55; PULSE 57; RESP 17; TEMP 36.7; O2SAT 97
[2023-06-14] MEDS: sodium chloride 0.9% 1,000 ML 999 ML IV (09:21)
[2023-06-14 10:27] VITALS: BP 116/78; PULSE 63; RESP 15; TEMP 36.4; O2SAT 94
[2023-06-17 14:01] VITALS: BP 120/75; PULSE 79; RESP 16; TEMP 36.8; O2SAT 99
[2023-06-17] MEDS: sodium chloride 0.9% 1,000 ML 999 ML IV (14:09)
[2023-06-19] MEDS: sodium chloride 0.9% 1,000 ML 999 ML IV (14:58)
[2023-06-19 16:30] VITALS: BP 136/78; PULSE 59; RESP 17; TEMP 35.7; O2SAT 99
[2023-06-21] MEDS: sodium chloride 0.9% 1,000 ML 999 ML IV (09:03)
[2023-06-21 10:15] VITALS: BP 115/76; PULSE 59; RESP 16; TEMP 36.9; O2SAT 98
[2023-06-24] MEDS: sodium chloride 0.9% 1,000 ML 999 ML IV (14:25)
[2023-06-26 14:23] VITALS: BP 133/77; PULSE 88; RESP 18; TEMP 36.6; O2SAT 97
[2023-06-26] MEDS: sodium chloride 0.9% 1,000 ML 999 ML IV (14:38)
[2023-06-28] MEDS: sodium chloride 0.9% 1,000 ML 999 ML IV (09:38)
[2023-06-28 10:55] VITALS: BP 109/71; PULSE 63; RESP 16; TEMP 36.9; O2SAT 99
[2023-07-04 14:58] VITALS: BP 132/78; PULSE 70; RESP 16; O2SAT 99
[2023-07-04] MEDS: sodium chloride 0.9% 1,000 ML 999 ML IV (15:12)
[2023-07-04 16:35] VITALS: BP 138/74; PULSE 60; O2SAT 100
== END 2023-07-07 23:59 | disposition home or self-care (01) ==
PROVIDERS: PCP Internal Medicine; Visit Provider Internal Medicine
DX: E86.0 Dehydration; R11.2 Nausea with vomiting, unspecified; Z53.9 Procedure and treatment not carried out, unspecified reason
CPT/HCPCS: 96360; 96365; J1642; J7030

== ENCOUNTER 2023-08-05 14:00 | Oncology outpatient (recurring) (ONCR) | payer OTHER, SELFPAY ==
[2023-07-09] MEDS: sodium chloride 0.9% 1,000 ML 999 ML IV (15:12)
[2023-07-09 16:47] VITALS: BP 106/66; PULSE 66; RESP 16; TEMP 36.9; O2SAT 97
[2023-07-12] MEDS: sodium chloride 0.9% 1,000 ML 999 ML IV (10:12)
[2023-07-17] MEDS: sodium chloride 0.9% 1,000 ML 999 ML IV (14:15)
[2023-07-17 15:38] VITALS: BP 118/72; PULSE 89; RESP 16; TEMP 37.5; O2SAT 98
[2023-07-25] MEDS: sodium chloride 0.9% 1,000 ML 999 ML IV (09:51)
[2023-07-25 09:55] VITALS: BP 113/85; PULSE 62; RESP 17; O2SAT 99
[2023-07-25 11:08] VITALS: BP 113/72; PULSE 67; RESP 16; TEMP 36.2; O2SAT 98
[2023-08-01 14:10] VITALS: BP 93/69; PULSE 88; RESP 16; TEMP 36.3; O2SAT 97
[2023-08-01] MEDS: sodium chloride 0.9% 1,000 ML 999 ML IV (14:19)
[2023-08-01 15:33] VITALS: BP 106/58; PULSE 69; RESP 16; TEMP 36.5; O2SAT 97
[2023-08-05] MEDS: sodium chloride 0.9% 1,000 ML 999 ML IV (14:43)
[2023-08-05 15:00] VITALS: BP 119/82; PULSE 85; RESP 18; TEMP 36.9; O2SAT 98
== END 2023-08-07 23:59 | disposition home or self-care (01) ==
PROVIDERS: PCP Internal Medicine; Visit Provider Internal Medicine
DX: R11.2 Nausea with vomiting, unspecified (principal); Z53.9 Procedure and treatment not carried out, unspecified reason; E86.0 Dehydration
CPT/HCPCS: 96360; 96365; J1642; J7030

== ENCOUNTER 2023-09-02 14:00 | Oncology outpatient (recurring) (ONCR) | payer BC, SELFPAY ==
[2023-08-08] MEDS: sodium chloride 0.9% 1,000 ML 999 ML IV (14:30)
[2023-08-12] MEDS: sodium chloride 0.9% 1,000 ML 999 ML IV (14:30)
[2023-08-12 16:00] VITALS: BP 107/61; PULSE 62; RESP 17; TEMP 35.9; O2SAT 100
[2023-08-15 14:15] VITALS: BP 100/66; PULSE 76; RESP 97; TEMP 36.9; O2SAT 97
[2023-08-15] MEDS: sodium chloride 0.9% 1,000 ML 999 ML IV (14:22)
[2023-08-15 15:10] VITALS: BP 111/69; PULSE 76; RESP 16; TEMP 36.4; O2SAT 98
[2023-08-19] MEDS: sodium chloride 0.9% 1,000 ML 999 ML IV (14:38)
[2023-08-19 14:40] VITALS: BP 113/68; PULSE 59; RESP 18; TEMP 35.7; O2SAT 98
[2023-08-22] MEDS: sodium chloride 0.9% 1,000 ML 999 ML IV (14:02)
[2023-08-26] MEDS: sodium chloride 0.9% 1,000 ML 999 ML IV (14:42)
[2023-08-26 15:20] VITALS: BP 139/80; PULSE 90; RESP 16; TEMP 36.3; O2SAT 96
[2023-08-29] MEDS: sodium chloride 0.9% 1,000 ML 999 ML IV (13:50)
[2023-08-29 14:54] VITALS: BP 111/73; PULSE 71; RESP 16; O2SAT 98
[2023-09-02 13:45] VITALS: BP 105/64; PULSE 98; RESP 16; TEMP 36.6; O2SAT 98
[2023-09-02] MEDS: sodium chloride 0.9% 1,000 ML 999 ML IV (14:09)
[2023-09-02 15:42] VITALS: BP 136/61; PULSE 56; RESP 16; TEMP 36.9; O2SAT 98
== END 2023-09-05 23:59 | disposition home or self-care (01) ==
PROVIDERS: PCP Internal Medicine; Visit Provider Internal Medicine
DX: E86.0 Dehydration (principal); Z53.9 Procedure and treatment not carried out, unspecified reason; R11.2 Nausea with vomiting, unspecified
CPT/HCPCS: 96360; 96365; J1642; J7030

== ENCOUNTER 2023-10-03 13:18 | Oncology outpatient (recurring) (ONCR) | payer BC, SELFPAY ==
[2023-09-06 09:30] VITALS: BP 116/77; PULSE 71; RESP 16; TEMP 36.2; O2SAT 99
[2023-09-06] MEDS: sodium chloride 0.9% 1,000 ML 999 ML IV (09:35)
[2023-09-10] MEDS: sodium chloride 0.9% 1,000 ML 999 ML IV (14:52)
[2023-09-12] MEDS: sodium chloride 0.9% 1,000 ML 999 ML IV (14:33)
[2023-09-12 14:55] VITALS: BP 178/89; PULSE 88; RESP 16; TEMP 36.1; O2SAT 97
[2023-09-12 15:43] VITALS: BP 110/72; PULSE 63; RESP 16; TEMP 36.8; O2SAT 100
[2023-09-16] MEDS: sodium chloride 0.9% 1,000 ML 999 ML IV (14:37)
[2023-09-16 15:43] VITALS: BP 91/50; PULSE 68; RESP 16; O2SAT 98
[2023-09-19] MEDS: sodium chloride 0.9% 1,000 ML 999 ML IV (14:39)
[2023-09-19 15:41] VITALS: BP 112/27; PULSE 63; RESP 14; TEMP 36.8; O2SAT 98
[2023-09-23] MEDS: sodium chloride 0.9% 1,000 ML 999 ML IV (14:17)
[2023-09-26 14:02] VITALS: BP 106/65; RESP 18; TEMP 36.6; O2SAT 98
[2023-09-26] MEDS: sodium chloride 0.9% 1,000 ML 999 ML IV (14:20)
[2023-09-26 15:29] VITALS: BP 134/81; PULSE 55; RESP 16; TEMP 36.1; O2SAT 98
[2023-10-03 13:40] VITALS: BP 88/69; PULSE 91; RESP 16; TEMP 36.1; O2SAT 98
[2023-10-03] MEDS: sodium chloride 0.9% 1,000 ML 999 ML IV (13:43)
[2023-10-03 15:04] VITALS: BP 89/50; PULSE 70; RESP 16; TEMP 36.6; O2SAT 98
--- NOTE | 2023-10-03 15:07 | PC.NURSE ---
discussed dehydration with patient and family. pt will come for hydration 2 days next week. Stated understanding.
== END 2023-10-06 23:59 | disposition home or self-care (01) ==
PROVIDERS: PCP Internal Medicine; Visit Provider Internal Medicine
DX: R11.2 Nausea with vomiting, unspecified; E86.0 Dehydration; Z53.9 Procedure and treatment not carried out, unspecified reason
CPT/HCPCS: 96360; 96365; J1642; J7030

== ENCOUNTER 2023-11-04 14:00 | Oncology outpatient (recurring) (ONCR) | payer BC, SELFPAY ==
[2023-10-07] MEDS: alteplase 1 mg/mL SDV 2 mL 2 MG INTRACATH (14:34)
[2023-10-07 14:57] VITALS: BP 95/53; RESP 16; TEMP 36.8; O2SAT 98
[2023-10-07] MEDS: sodium chloride 0.9% 1,000 ML 999 ML IV (15:21)
[2023-10-07 16:46] VITALS: BP 100/47; PULSE 57; RESP 16; TEMP 36.1; O2SAT 99
[2023-10-10] MEDS: sodium chloride 0.9% 1,000 ML 999 ML IV (15:03)
[2023-10-10 16:20] VITALS: BP 104/68; PULSE 70; RESP 17; TEMP 36.6; O2SAT 98
[2023-10-17] MEDS: sodium chloride 0.9% 1,000 ML 999 ML IV (14:15)
[2023-10-17 15:26] VITALS: PULSE 64; RESP 16; TEMP 36.1; O2SAT 99
[2023-10-21 13:50] VITALS: BP 109/76; PULSE 80; RESP 16; TEMP 36.6; O2SAT 95
[2023-10-21] MEDS: alteplase 1 mg/mL SDV 2 mL 2 MG INTRACATH (14:20)
[2023-10-21] MEDS: sodium chloride 0.9% 1,000 ML 999 ML IV (15:24)
[2023-10-21 16:30] VITALS: BP 103/54; PULSE 54; RESP 16; TEMP 36.2; O2SAT 99
[2023-10-24] MEDS: sodium chloride 0.9% 1,000 ML 999 ML IV (14:11)
[2023-10-24 14:13] VITALS: BP 114/60; PULSE 66; RESP 18; TEMP 36.1; O2SAT 98
[2023-10-28] MEDS: alteplase 1 mg/mL SDV 2 mL 2 MG INTRACATH (14:21)
[2023-10-28] MEDS: sodium chloride 0.9% 1,000 ML 999 ML IV (15:00)
[2023-10-28 15:50] VITALS: BP 119/70; PULSE 65; RESP 16; TEMP 36.6; O2SAT 99
[2023-10-31 14:03] VITALS: BP 116/75; PULSE 68; RESP 16; TEMP 36.6; O2SAT 99
[2023-10-31] MEDS: alteplase 1 mg/mL SDV 2 mL 2 MG INTRACATH ×2 (14:24→15:35)
[2023-10-31] MEDS: sodium chloride 0.9% 1,000 ML 999 ML IV (16:30)
[2023-10-31 17:35] VITALS: BP 109/63; PULSE 59; RESP 16; TEMP 36.4; O2SAT 99
[2023-11-04 14:32] VITALS: BP 111/75; PULSE 62; RESP 16; TEMP 36; O2SAT 97
[2023-11-04] MEDS: sodium chloride 0.9% 1,000 ML 999 ML IV (14:43)
[2023-11-04 15:59] VITALS: BP 105/69; PULSE 64; RESP 17; TEMP 35.8; O2SAT 98
== END 2023-11-05 23:59 | disposition home or self-care (01) ==
PROVIDERS: PCP Internal Medicine; Visit Provider Internal Medicine
DX: E86.0 Dehydration (principal); R11.2 Nausea with vomiting, unspecified; Z53.9 Procedure and treatment not carried out, unspecified reason
CPT/HCPCS: 36593; 96360; 96365; J2997; J7030

== ENCOUNTER 2023-11-07 14:44 | Outpatient (CLI) | payer BC, SELFPAY ==
--- NOTE | 2023-11-07 15:42 | XRR_ITS ---
PROCEDURE INFORMATION: Exam: XR Left Knee Exam date and time: 11/07/2023 3:45 PM Age: 52 years old Clinical indication: Patient HX: Left knee pain and swelling for 2 weeks TECHNIQUE: Imaging protocol: Radiologic exam of the left knee. Views: 1 or 2 views. COMPARISON: No relevant prior studies available. FINDINGS: Bones/joints: Normal. Soft tissues: Normal. XR/XR knee LT 1-2V [id number] IMPRESSION: No acute findings.
== END 2023-11-07 14:45 | disposition home or self-care (01) ==
PROVIDERS: PCP Internal Medicine; Visit Provider Internal Medicine
DX: M25.562 Pain in left knee (principal)
CPT/HCPCS: 73560

== ENCOUNTER 2023-12-05 10:08 | Oncology outpatient (recurring) (ONCR) | payer BC, SELFPAY ==
[2023-11-07] MEDS: sodium chloride 0.9% 1,000 ML 999 ML IV (14:24)
[2023-11-07 15:40] VITALS: BP 107/56; PULSE 65; RESP 17; TEMP 35.7; O2SAT 99
[2023-11-11] MEDS: sodium chloride 0.9% 1,000 ML 999 ML IV (14:11)
[2023-11-11 15:15] VITALS: BP 119/78; PULSE 60; RESP 16; TEMP 36.6; O2SAT 98
[2023-11-14] MEDS: sodium chloride 0.9% 1,000 ML 999 ML IV (14:31)
[2023-11-18] MEDS: sodium chloride 0.9% 1,000 ML 999 ML IV (14:35)
[2023-11-18 15:15] VITALS: BP 123/71; PULSE 64; RESP 16; O2SAT 99
[2023-11-25] MEDS: sodium chloride 0.9% 1,000 ML 999 ML IV (15:11)
[2023-11-25 15:42] VITALS: BP 102/59; PULSE 58; RESP 16; TEMP 35.7; O2SAT 98
[2023-11-28 14:49] VITALS: BP 124/76; PULSE 71; RESP 16; TEMP 36.8; O2SAT 99
[2023-11-28] MEDS: sodium chloride 0.9% 1,000 ML 850 ML IV (14:51)
[2023-11-28 16:10] VITALS: BP 129/82; PULSE 56; RESP 17; TEMP 35.8; O2SAT 100
[2023-12-03 14:25] VITALS: BP 133/78; PULSE 71; RESP 18; TEMP 36.6; O2SAT 99
[2023-12-03] MEDS: sodium chloride 0.9% 1,000 ML 999 ML IV (14:37)
[2023-12-03 14:50] VITALS: BP 133/78; PULSE 71; RESP 18; TEMP 36.6; O2SAT 98
[2023-12-05] MEDS: sodium chloride 0.9% 1,000 ML 999 ML IV (11:22)
[2023-12-05 11:30] VITALS: BP 103/58; PULSE 68; RESP 18; TEMP 36.6; O2SAT 96
--- NOTE | 2023-12-05 16:44 | PC.NURSE ---
Patient to see surgeon related to port without blood return today.
== END 2023-12-06 23:59 | disposition home or self-care (01) ==
PROVIDERS: PCP Internal Medicine; Visit Provider Internal Medicine
DX: Z53.9 Procedure and treatment not carried out, unspecified reason (principal); E86.0 Dehydration; R11.2 Nausea with vomiting, unspecified
CPT/HCPCS: 36415; 96360; J7030

== ENCOUNTER 2023-12-10 06:22 | Day surgery (SDC) | payer BC, SELFPAY ==
[2023-12-10] VITALS (7 sets, daily range): BP systolic 125–179; BP diastolic 76–101; PULSE 63–89; RESP 10–19; TEMP 36.1–36.6; O2SAT 96–100; BMI 25.1
--- NOTE | 2023-12-10 06:23 | SC_ITS ---
WS: [id number] C-arm FL for CVA [id number] REASON FOR EXAM: mediport placement FINDINGS: Left chest chemotherapy infusion port with trans left subclavian infusion catheter with the tip of th e catheter in the distal SVC. No left pneumothorax. SC/C-arm FL for CVA [id number] IMPRESSION: Left-sided chemotherapy port and catheter without abnormality.
--- NOTE | 2023-12-10 06:23 | XRR_ITS ---
PROCEDURE INFORMATION: Exam: XR Chest Exam date and time: 12/10/2023 9:08 AM Age: 52 years old Clinical indication: Device placement; Other: Mediport placement; Prior surgery; Surgery date: Post-operative (0-2 days); Additional info: S/P mediport placement TECHNIQUE: Imaging protocol: Radiologic exam of the chest. Views: 1 view. COMPARISON: No relevant prior studies available. FINDINGS: Tubes, catheters and devices: Left-sided central venous chest port noted with the distal tip in the region of the right atrium. Lungs: The lung parenchyma is clear. Pleural spaces: No pneumothorax. No large pleural effusion. Heart/Mediastinum: The cardiomediastinal silhouette is within normal limits. Bones/joints: Unremarkable. Soft tissues: Surgical clips in the left axillary region. XR/XR chest 1V portable [id number] IMPRESSION: Left-sided central venous chest port noted with the distal tip in the region of the right atrium.
[2023-12-10] MEDS: sodium chloride 0.9% 1,000 ML 30 ML IV (06:43)
--- NOTE | 2023-12-10 07:04 | W.PM.OPSUD ---
Surgery/Procedure H&P Update DATE OF PROCEDURE: December 10, 2023 DATE H&P PERFORMED: 12/05/23 H&P UPDATE INFORMATION: I have reviewed H&P completed within last 30 days, I have examined patient prior to procedure and No changes to prior documentation PLANNED PROCEDURE: Operation Date: 12/10/23 07:50 Proposed Procedures p Portacath Placement 08094, 83719, z95.828, C50.919(Not Applicable) - Mikie Sullivan DO s Portacath Removal(Not Applicable) - Mikie Sullivan DO
--- NOTE | 2023-12-10 07:12 | P.ANESASSM_ITS ---
Pre-Anesthetic Assessment Height/Weight: Height 1.75 m Weight 77.111 kg Temp Pulse Resp BP Pulse Ox O2 Del Method 97 F L 63 18 135/83 99 Room Air 12/10/23 06:32 12/10/23 06:32 12/10/23 06:32 12/10/23 06:32 12/10/23 06:32 12/10/23 06:32 Operation Date: 12/10/23 07:50 Proposed Procedures p Portacath Placement 21670, 43339, z95.828, C50.919(Not Applicable) - DO mamta Figueroa Portacath Removal(Not Applicable) - Mikie Sullivan DO Familial anesthetic complications: None Was Beta Zoraida taken within 24 hours: N/A Was Clonidine taken within 24 hours: N/A Last intake: Intake Last Liquid Date 12/09/23 Last Liquid Time 22:00 Last Solid Date 12/09/23 Last Solid Time 22:00 Social No alcohol and No tobacco Exam alert, oriented x 3, clear to auscultation bilaterally and regular rate & rhythm Airway Mallampati: Class I [place] [facility] breast cancer Anesthetic Plan ASA status: 3 Anesthesia: MAC Risk of > 500 ml blood loss (7ml/kg in children): No Medications/Allergies Home Medications Medication Instructions Recorded Confirmed Last Taken Type alpha lipoic acid 200 mg capsule 200 mg PO DAILY 12/09/23 12/09/23 12/09/23 History calcium-magnesium 750 mg-465 mg 1 tab PO DAILY 12/09/23 12/09/23 12/09/23 History tablet diphenoxylate-atropine 2.5 1 tab PO QID loose stools 12/09/23 12/10/23 12/10/23 History mg-0.025 mg tablet lapatinib 250 mg tablet 750 mg PO DAILY 12/09/23 12/09/23 12/09/23 History letrozole 2.5 mg tablet 2.5 mg PO DAILY 12/09/23 12/09/23 12/09/23 History unipitwpbvru-Wo-ddgg-minerals 1 pkg PO DAILY 12/09/23 12/09/23 12/09/23 History pyridoxine (vitamin B6) 100 mg 100 mg PO DAILY 12/09/23 12/09/23 12/09/23 History tablet (Vitamin B-6) Allergies Allergy/AdvReac Type Severity Reaction Status Date / Time No Known Allergies Allergy Verified 12/05/23 14:05 Current Medications Generic Name Dose Route Start Last Admin Trade Name Freq PRN Reason Stop Dose Admin Sodium Chloride 1,000 mls @ 30 mls/hr 12/10/23 06:30 12/10/23 06:43 Sodium Chloride 0.9% IV 12/11/23 06:29 30 mls/hr .Q24H LIVIA Administration PFSH Anesthesia Medical History (Updated 12/05/23 @ 14:22 by Mikie Sullivan DO) Port-A-Cath in place Breast cancer in female Surgical History (Updated 12/05/23 @ 14:22 by Mikie Sullivan DO) Hx of brain surgery tumor removal Hx of mastectomy Family History Mother Cancer brain Father Pulmonary fibrosis Social History Smoking and tobacco/nicotine status: never used tobacco/nicotine Second hand smoke exposure: No Alcohol intake: never Substance/Drug Use: never Data Anesthesia Cardiac Studies: No Data to Display
[2023-12-10] MEDS: ceFAZolin 2,000 MG in sodium chloride 0.9% (plus) 50 ML 100 MG IV (07:32)
[2023-12-10] MEDS: lidocaine-epi 2% PF 1:200,000 20 mL SDV XX ×2 (07:52→08:16)
[2023-12-10] MEDS: heparin, porcine 1,000 unit/mL INJ 10 mL 10000 UNIT IRRIGATION (08:18)
--- NOTE | 2023-12-10 08:36 | P.OP_ITS ---
Operative Report Date of procedure: December 10, 2023 Pre-op diagnosis: Metastatic breast cancer Malfunctioning Mediport Post-op diagnosis: same Procedure done: Mediport removal Mediport placement Intraoperative interpretation of fluoroscopy Implants: PowerPort Specimens removed/disposition: Mediport, not sent to pathology Surgeon: Mikie Sullivan DO Anesthesia: MAC and Local Estimated blood loss (mL): 5 Complications: None apparent Findings: Very tiny right internal jugular and subclavian veins Brief History: This is a very pleasant 52-year-old female who now has had 3 different Mediport's stop working. She needs it for chemotherapy access. Mediport removal and Mediport placement were indicated. The risk and benefits were explained and documented. Procedure: The patient was taken to the operating room and placed supine on the operating room table. All bony prominences were padded. She was given IV sedation and monitored throughout the case by the anesthesia personnel. SCDs were placed and turned on. The arms were tucked to the side. Patient received Ancef 2 g preoperatively IV. The bilateral chest wall was prepped and draped in usual sterile fashion using chlorhexidine base prep. Sterile drapes were applied. We did procedure pause prior to beginning. Sent lidocaine with epinephrine used to anesthetize over the right Mediport incision site. The old incision was opened with a 15 blade scalpel. The old Mediport was bluntly dissected away from surrounding structures with a hemostat. The port was removed. The tunnel was closed with a 3-0 Vicryl suture in a [id number] fashion. I then attempted to access the right subclavian vein without success. Multiple attempts were made. I then used the ultrasound to try to access the right internal jugular vein. Only a very tiny left internal jugular vein could be seen. I did not believe this was accessible. I then put the ultrasound over the left seen for a small distance subclavian vein and did not definitively seen 1 accessible. Decision was made to move to the left side. An 18 gauge needle was placed in the left subclavian vein. Dark, nonpulsatile blood was aspirated. A guidewire was placed through the needle centrally toward the atrial/vena caval junction. Fluoroscopy visualized good placement. The needle was removed and the guidewire was clipped to the drape with a hemostat. Further local anesthetic was infiltrated in the soft tissues of the left chest wall and a #15 blade was used to make a horizontal skin incision. A subcutaneous Mediport pocket was created using Bovie cautery, dissecting down through the skin and subcutaneous tissues. Meticulous hemostasis was achieved. The Mediport was sutured in position using 3-0 vicryl suture x2 stitches. A #15 blade was used to make a small skin mary around the guidewire insertion area. The Mediport tubing was tunneled through the subcutaneous tissues up to the needle insertion location. A dilator with a peel-away sheath was placed over the guidewire and placed centrally. After measuring the Mediport tubing was cut to length so that the tip would end at the atrial/vena caval junction. The inner cannula and the guidewire were removed, leaving the dilator sheath in place. The Mediport was flushed. The tip of the catheter was inserted through the peel-away sheath and the peel-away sheath removed in the standard fashion. The Mediport was accessed with a str aight Elaine needle and dark, nonpulsatile blood was aspirated and flushed using heparinized saline to hep-lock the Mediport. Final fluoroscopy visualization showed no kink in the catheter and the tip of the Mediport tubing near the atrial/vena caval junction. Both skin incisions were thoroughly irrigated and suctioned dry. Meticulous hemostasis noted. The dermis was approximated with 3-0 Vicryl in an interrupted fashion. Skin was closed with Dermabond. Patient was awakened from anesthesia and transferred via her cart to the recovery room in stable condition. All needle, sponge, and instrument counts were correct per the operating personnel x2 counts.
[2023-12-10] MEDS: HYDROcodone-acetaminophen 7.5-325 mg Tablet 1 TAB PO (09:35)
--- NOTE | 2023-12-10 10:00 | ANE.PACU2 ---
Inpatient post-anesthesia follow up: Airway intact: Yes Vital signs: Temperature 97.8 F Pulse Rate 77 Respiratory Rate 16 Blood Pressure 177/101 Pulse Oximetry 100 Oxygen Delivery Me thod Room Air Oxygen Flow Rate 6 Fraction of Inspir ed Oxygen Hydration adequate: Yes Nausea and vomiting: No Pain level: 1 Mental status: Baseline
== END 2023-12-10 10:00 | disposition home or self-care (01) ==
PROVIDERS: PCP Internal Medicine; Visit Provider Surgery
PROC: (CPT 36561; principal; 2023-12-10 07:50)
PROC: (CPT 36589; 2023-12-10 07:50)
DX: C50.919 Malignant neoplasm of unspecified site of unspecified female breast (principal)
CPT/HCPCS: 36561; 71045; 77001; C1788; J0690; J1644; J2250; J2704; J3010; J7030

== ENCOUNTER 2023-12-12 09:23 | Outpatient (CLI) | payer BC, SELFPAY ==
--- NOTE | 2023-12-12 09:28 | NM_ITS ---
WS: [id number] NUCLEAR MEDICINE WHOLE BODY BONE SCAN HISTORY: BREAST CANCER, BONE PAIN COMPARISON: None available. TECHNIQUE: The patient was injected with 23.5 mCi of Technetium 99m HDP and serial whole-body scintig tom have been performed with anterior and posterior images. Moderate increased uptake at the knee joints from osteoarthritis. Mild AC joint and glenohumeral join t arthritis. Large photopenic defect over the RIGHT calvarium. RIGHT frontal lobe mass was identified on 02/25/2020. No increased uptake. The ribs and spine images are normal. No metastatic disease suspected. Normal soft tissue uptake and normal renal uptake. NM/NM bone scan whole body* [id number] IMPRESSION: No evidence for metastatic bone disease. Moderate changes at the knees from arthritis.
== END 2023-12-12 09:24 | disposition home or self-care (01) ==
LOC: RAD 09:23
PROVIDERS: PCP Internal Medicine; Visit Provider Internal Medicine
DX: M89.8X9 Other specified disorders of bone, unspecified site (principal); C50.919 Malignant neoplasm of unspecified site of unspecified female breast
CPT/HCPCS: 78306; A9561

== ENCOUNTER 2024-01-02 14:15 | Oncology outpatient (recurring) (ONCR) | payer BC, SELFPAY ==
[2023-12-09] MEDS: sodium chloride 0.9% 1,000 ML 999 ML IV (15:42)
[2023-12-09 15:45] VITALS: BP 117/75; PULSE 75; RESP 17; TEMP 36; O2SAT 97
[2023-12-09 16:46] VITALS: BP 118/76; PULSE 69; RESP 16; TEMP 36; O2SAT 99
[2023-12-12] MEDS: sodium chloride 0.9% 1,000 ML 999 ML IV (15:00)
[2023-12-12 16:15] VITALS: BP 134/89; PULSE 88; RESP 16; TEMP 36.6; O2SAT 98
[2023-12-16 14:19] VITALS: BP 116/71; PULSE 74; RESP 16; TEMP 36.6; O2SAT 98
[2023-12-16] MEDS: sodium chloride 0.9% 1,000 ML 999 ML IV (14:21)
[2023-12-16 15:11] VITALS: BP 105/63; PULSE 75; RESP 16; TEMP 36.6; O2SAT 98
[2023-12-19] MEDS: sodium chloride 0.9% 1,000 ML 999 ML IV (14:49)
[2023-12-19 14:57] VITALS: PULSE 66; RESP 16; TEMP 36.5; O2SAT 97
[2023-12-23 14:13] VITALS: BP 122/72; PULSE 79; RESP 16; O2SAT 98
[2023-12-23] MEDS: sodium chloride 0.9% 1,000 ML 999 ML IV (14:17)
[2023-12-23 15:10] VITALS: BP 99/67; PULSE 67; RESP 16; O2SAT 99
[2023-12-26 14:20] VITALS: BP 97/68; PULSE 61; RESP 16; TEMP 36.1; O2SAT 97
[2023-12-26] MEDS: sodium chloride 0.9% 1,000 ML 999 ML IV (14:35)
[2023-12-26 15:50] VITALS: BP 108/68; PULSE 710; RESP 16; TEMP 36.7; O2SAT 99
[2023-12-30] MEDS: sodium chloride 0.9% 1,000 ML 999 ML IV (14:29)
[2023-12-30 14:32] VITALS: BP 119/79; PULSE 75; RESP 16; TEMP 36.4; O2SAT 97
[2023-12-30 15:40] VITALS: BP 103/68; PULSE 66; RESP 16; TEMP 36.4; O2SAT 99
[2024-01-02] MEDS: sodium chloride 0.9% 1,000 ML 999 ML IV (14:32)
== END 2024-01-05 23:59 | disposition home or self-care (01) ==
PROVIDERS: PCP Internal Medicine; Visit Provider Internal Medicine
DX: Z53.9 Procedure and treatment not carried out, unspecified reason (principal); C50.919 Malignant neoplasm of unspecified site of unspecified female breast
CPT/HCPCS: 96360; J7030

== ENCOUNTER → 2024-01-15 12:49 | Outpatient (CLI) | payer BC, SELFPAY ==
--- NOTE | 2024-01-15 12:50 | MR_ITS ---
WS: [id number] MRI HEAD WITH CONTRAST TECHNIQUE: Sagittal T1, T2 axial, T2 axial FLAIR, axial susceptibility weighted imaging, axial diffus ion weighted images, and coronal T2 images were obtained. Pre and post-T1 axial and post T1 coronal i mages. ADC and FSPGR images. CLINICAL INFORMATION: ABN WEIGHT LOSS/WEAKNESS/MALIGNANT NEOPLASM OF BRAIN COMPARISON: CT 2019. FINDINGS: Previous postoperative changes apparent RIGHT frontal craniotomy with resection cavity RIGHT frontal lobe. This communicates with the RIGHT lateral ventricle with associated encephalomalacia and gliosis . Ex vacuo dilatation of the RIGHT lateral ventricle anterior horn. Tiny amount of enhancement along the posterior margin of the resection cavity may be due to a prominent vessel. Otherwise no evidence of recurrence within the the area of resection cavity. Ependymal enhancement involving the third ventricle extending into the LEFT thalamus. Suggestion of a resection cavity in the LEFT thalamus. No hydrocephalus. No other regions of ependymal enhancement. No other suspicious enhancing intracranial signal abnormalities. Nonenhancing T2 hyperintensity in the periventricular white matter likely due to previous treatment r elated changes. Normal posterior fossa. Normal vascular flow voids at the skull base. No extra-axial fluid collections. Paranasal sinuses and mastoid air cells are well aerated. Normal optic chiasm and pituitary infundibulum. No other suspicious abnormalities. MR/MR head wo/w con [id number] IMPRESSION: 1. Prior postoperative changes extensive RIGHT frontal craniotomy with large r esection cavity in the RIGHT frontal lobe. Surrounding encephalomalacia and gli osis. 2. Tiny amount of enhancement along the posterior lateral margin of the resect ion cavity may be due to a small prominent vessel and most likely incidental bu t technically indeterminate. Recommend comparison with prior imaging or 3 to 6- month follow-up to ensure stability. 3. Indeterminate circumferential ependymal enhancement involving the third dior tricle extending into the LEFT thalamus with suggestion of a resection cavity i n this area. This may be due to recent surgery or shunt catheter placement but indeterminate. Recommend correlation with treatment history and prior imaging i f available. CSF sampling may be helpful to evaluate for cytology or meningitis in the absence of recent ventriculostomy or surgical procedure 4. Nonenhancing T2 signal abnormality RIGHT frontal lobe and periventricular w karl matter compatible with prior treatment related changes.
[2024-01-15] MEDS: gadobenate dimeglumine 20 mL vial IV (14:39)
== END | disposition home or self-care (01) ==
LOC: RAD 12:48
PROVIDERS: PCP Internal Medicine; Visit Provider Internal Medicine
DX: C79.31 Secondary malignant neoplasm of brain (principal); Z86.011 Personal history of benign neoplasm of the brain; G93.89 Other specified disorders of brain; G91.9 Hydrocephalus, unspecified; R93.0 Abnormal findings on diagnostic imaging of skull and head, not elsewhere classified
CPT/HCPCS: 70553; A9577

== ENCOUNTER 2024-02-04 14:00 | Oncology outpatient (recurring) (ONCR) | payer BC, SELFPAY ==
[2024-01-06 14:39] VITALS: BP 101/69; PULSE 76; RESP 18; TEMP 36.2; O2SAT 95
[2024-01-06] MEDS: sodium chloride 0.9% 1,000 ML 999 ML IV (14:45)
[2024-01-06 15:50] VITALS: BP 111/66; PULSE 76; RESP 18; TEMP 35.6; O2SAT 97
[2024-01-13 14:11] VITALS: BP 118/76; PULSE 69; RESP 18; TEMP 36; O2SAT 99
[2024-01-13] MEDS: sodium chloride 0.9% 1,000 ML 999 ML IV (14:17)
[2024-01-13 15:20] VITALS: BP 97/64; PULSE 67; RESP 18; TEMP 35.8; O2SAT 98
[2024-01-16] MEDS: sodium chloride 0.9% 1,000 ML 999 ML IV (14:32)
[2024-01-16 15:30] VITALS: BP 102/77; PULSE 77; RESP 16; TEMP 36.6; O2SAT 99
[2024-01-20 14:31] VITALS: BP 96/66; PULSE 74; RESP 18; O2SAT 97
[2024-01-20] MEDS: alteplase 1 mg/mL SDV 2 mL 2 MG INTRACATH ×2 (15:13→17:20)
[2024-01-20] MEDS: sodium chloride 0.9% 1,000 ML 999 ML IV (16:00)
[2024-01-20 17:33] VITALS: BP 132/78; PULSE 78; RESP 16; TEMP 36.6; O2SAT 98
[2024-01-23] MEDS: sodium chloride 0.9% 1,000 ML 999 ML IV (14:20)
[2024-01-23 15:30] VITALS: BP 106/50; PULSE 60; RESP 17; O2SAT 99
[2024-01-27] MEDS: sodium chloride 0.9% 1,000 ML 999 ML IV (14:23)
[2024-01-27 14:28] VITALS: BP 105/57; PULSE 65; RESP 17; TEMP 35.9; O2SAT 96
[2024-01-27 15:45] VITALS: BP 96/55; PULSE 69; RESP 16; TEMP 35.9; O2SAT 100
[2024-01-30 14:30] VITALS: BP 114/70; PULSE 56; RESP 16; TEMP 36.5; O2SAT 99
[2024-01-30] MEDS: sodium chloride 0.9% 1,000 ML 999 ML IV (14:30)
[2024-01-30 15:20] VITALS: BP 135/77; PULSE 67; RESP 16; TEMP 36.6; O2SAT 100
[2024-02-04 14:10] VITALS: BP 113/54; PULSE 60; RESP 16; TEMP 36.8; O2SAT 96
[2024-02-04] MEDS: sodium chloride 0.9% 1,000 ML 999 ML IV (14:11)
== END 2024-02-05 23:59 | disposition home or self-care (01) ==
PROVIDERS: PCP Internal Medicine; Visit Provider Internal Medicine
DX: C50.912 Malignant neoplasm of unspecified site of left female breast (principal); Z53.9 Procedure and treatment not carried out, unspecified reason; E86.0 Dehydration; Z79.899 Other long term (current) drug therapy
CPT/HCPCS: 36593; 96360; J2997; J7030

== ENCOUNTER 2024-02-24 09:55 | Outpatient (CLI) | payer BC, SELFPAY ==
--- NOTE | 2024-02-24 09:57 | CTR_ITS ---
PROCEDURE INFORMATION: Exam: CT Chest With Contrast; Diagnostic Exam date and time: 02/24/2024 11:00 AM Age: 53 years old Clinical indication: Condition or disease; Other: Breast, lung; Other: Breast and lung cancer; Prior surgery; Surgery date: 6+ months; Surgery type: Double mastectomy, port; Additional info: Lung ca/abn weight loss/diarrhea/dehydration/nausea TECHNIQUE: Imaging protocol: Diagnostic computed tomography of the chest with contrast. Radiation optimization: All CT scans at this facility use at least one of these dose optimization techniques: automated exposure control; mA and/or kV adjustment per patient size (includes targeted exams where dose is matched to clinical indication); or iterative reconstruction. Contrast material: OMNI 350; Contrast volume: 100 ml; Contrast route: INTRAVENOUS (IV); COMPARISON: CR XR chest 1V portable [id number] 12/10/2023 9:08 AM RADIATION DOSE METRICS: Total DLP (mGy-cm): 847.96 FINDINGS: Lungs: Scattered scarring in the lungs. Spiculated focus in the right lower lobe measuring 1.3 x 1.1 x 1.7 cm(AP x CC x TV).. Additional subtle spiculated focus in the right lower lobe immediately cephalad to the diaphragm on image 39 series 4 is difficult to measure. Few additional tiny (2-3 mm) nodules in the bilateral lungs may be infectious/inflammatory. Pleural spaces: Unremarkable. No pneumothorax. No pleural effusion. Heart: Unremarkable. No cardiomegaly. No pericardial effusion. Lymph nodes: Unremarkable. No enlarged lymph nodes. Vasculature: Unremarkable. No aortic aneurysm. Bones/joints: Unremarkable. No acute fracture. Soft tissues: Bilateral mastectomies with bilateral prostheses. PROCEDURE INFORMATION: Exam: CT Abdomen And Pelvis With Contrast Exam date and time: 02/24/2024 11:00 AM Age: 53 years old Clinical indication: Condition or disease; Other: Breast, lung; Other: Breast and lung cancer; Prior surgery; Surgery date: 6+ months; Surgery type: Double mastectomy, port; Additional info: Lung ca/abn weight loss/diarrhea/dehydration/nausea TECHNIQUE: Imaging protocol: Computed tomography of the abdomen and pelvis with contrast. Radiation optimization: All CT scans at this facility use at least one of these dose optimization techniques: automated exposure control; mA and/or kV adjustment per patient size (includes targeted exams where dose is matched to clinical indication); or iterative reconstruction. Contrast material: OMNI 350; Contrast volume: 100 ml; Contrast route: INTRAVENOUS (IV); COMPARISON: NM bone scan whole body* [id number] 12/12/2023 9:28 AM RADIATION DOSE METRICS: Total DLP (mGy-cm): 847.96 FINDINGS: Lungs: Lung bases are clear as visualized. Liver: Normal. No mass. Gallbladder and biliary ducts: Normal. No calcified stones. No ductal dilation. Pancreas: Normal. No ductal dilation. Spleen: Normal. No splenomegaly. Adrenal glands: Normal. No mass. Kidneys and ureters: Normal. No hydronephrosis. Stomach and bowel: No bowel obstruction or acute inflammation. Note made of mild thickening of the rectum, nonspecific. May indicate prior proctitis. Administered enteric contrast up to distal small bowel. No appreciable peritoneal implants or ascites. Appendix: No evidence of appendicitis. Intraperitoneal space: See Stomach and bowel finding. Vasculature: Unremarkable. No abdominal aortic aneurysm. Lymph nodes: Unremarkable. No enlarged lymph nodes. Urinary bladder: Unremarkable as visualized. Reproductive: Unremarkable as visualized. Bones/joints: Unremarkable. No acute fracture. Soft tissues: Unremarkable. CT/CT chest abdpel w/*[id number] IMPRESSION: 1. Spiculated focus measuring 1.3 x 1.1 x 1.7 cm(AP x CC x TV) is worrisome for neoplasm. Can be further evaluated with PET-CT or biopsy according to clinical discretion. 2. Mild scattered scarring in the bilateral lungs. IMPRESSION: No evidence of metastatic disease and no acute abnormality in the abdomen and pelvis.
[2024-02-24] MEDS: iohexol 350 mg/mL 500 mL Btl (per mL) PO (10:42)
[2024-02-24] MEDS: iohexol 350 mg/mL 500 mL Btl (per mL) IV (11:14)
== END 2024-02-24 09:56 | disposition home or self-care (01) ==
LOC: RAD 09:55
PROVIDERS: PCP Internal Medicine; Visit Provider Internal Medicine
DX: C78.01 Secondary malignant neoplasm of right lung (principal); C78.02 Secondary malignant neoplasm of left lung; C50.912 Malignant neoplasm of unspecified site of left female breast; C79.31 Secondary malignant neoplasm of brain; G43.C0 Periodic headache syndromes in child or adult, not intractable; R63.4 Abnormal weight loss; E86.0 Dehydration; R19.7 Diarrhea, unspecified; R11.2 Nausea with vomiting, unspecified; R53.0 Neoplastic (malignant) related fatigue; M62.81 Muscle weakness (generalized); U07.1 COVID-19; G89.3 Neoplasm related pain (acute) (chronic); I67.89 Other cerebrovascular disease; Z98.82 Breast implant status; Z90.13 Acquired absence of bilateral breasts and nipples
CPT/HCPCS: 71260; 74177; Q9967

== ENCOUNTER 2024-03-05 14:12 | Oncology outpatient (recurring) (ONCR) | payer BC, SELFPAY ==
[2024-02-06] MEDS: sodium chloride 0.9% 1,000 ML 999 ML IV (14:40)
[2024-02-06 14:43] VITALS: BP 113/74; PULSE 61; RESP 18; TEMP 36.6; O2SAT 97
[2024-02-10 14:18] VITALS: BP 122/93; PULSE 80; RESP 16; TEMP 35.8; O2SAT 99
[2024-02-10] MEDS: sodium chloride 0.9% 1,000 ML 999 ML IV (14:32)
[2024-02-13] MEDS: sodium chloride 0.9% 1,000 ML 999 ML IV (15:17)
[2024-02-13] MEDS: alteplase 1 mg/mL SDV 2 mL 2 MG INTRACATH (16:27)
[2024-02-13 16:42] VITALS: BP 93/62; PULSE 69; RESP 16; TEMP 36.2; O2SAT 99
[2024-02-17] MEDS: sodium chloride 0.9% 1,000 ML 999 ML IV (14:48)
[2024-02-17 15:18] VITALS: BP 115/74; PULSE 74; RESP 16; TEMP 36.6; O2SAT 98
[2024-02-17 16:00] VITALS: BP 122/74; PULSE 88; RESP 16; TEMP 36.6; O2SAT 99
[2024-02-20 14:23] VITALS: BP 113/75; PULSE 82; RESP 18; TEMP 36.3; O2SAT 97
[2024-02-20] MEDS: sodium chloride 0.9% 1,000 ML 999 ML IV (14:25)
[2024-02-20 15:52] VITALS: BP 105/58; PULSE 70; RESP 18; TEMP 36.2; O2SAT 98
[2024-02-24] MEDS: sodium chloride 0.9% 1,000 ML 999 ML IV (11:37)
[2024-02-24 12:54] VITALS: BP 117/57; PULSE 56; RESP 18; TEMP 36.4; O2SAT 95
[2024-02-27] MEDS: sodium chloride 0.9% 1,000 ML 999 ML IV (14:28)
[2024-02-27 15:40] VITALS: BP 96/58; PULSE 62; RESP 16; TEMP 35.9; O2SAT 99
[2024-03-02 14:20] VITALS: PULSE 65; RESP 16; TEMP 36.3; O2SAT 95
[2024-03-02] MEDS: sodium chloride 0.9% 1,000 ML 999 ML IV (14:37)
[2024-03-02 15:43] VITALS: BP 96/56; PULSE 63; RESP 16; TEMP 35.8; O2SAT 100
[2024-03-05 14:25] VITALS: BP 109/64; PULSE 74; RESP 18; TEMP 36.6; O2SAT 98
[2024-03-05] MEDS: sodium chloride 0.9% 1,000 ML 999 ML IV (14:44)
[2024-03-05 15:37] VITALS: BP 104/63; PULSE 86; RESP 17; TEMP 35.6; O2SAT 99
== END 2024-03-07 23:59 | disposition home or self-care (01) ==
PROVIDERS: PCP Internal Medicine; Visit Provider Internal Medicine
DX: Z53.9 Procedure and treatment not carried out, unspecified reason (principal); E86.0 Dehydration; Z79.899 Other long term (current) drug therapy
CPT/HCPCS: 36593; 96360; J2997; J7030; J7040

== ENCOUNTER 2024-03-24 08:00 | Outpatient (CLI) | payer BC, SELFPAY ==
--- NOTE | 2024-03-24 08:10 | USCV_ITS ---
Malorie Briggs Age: 53 Gender: F : 1970 Exam Date: 03/24/2024 08:22 Ordering Phys: Vicenta Orellana DO Technologist: LEILANI [place] [facility] [place]: LUNG CA BP: 127 / 57 HR: 60 Rhythm: Sinus Technical Quality: Suboptimal MEASUREMENTS (Male / Female) Normal Values 2D ECHO LV Diastolic Diameter PLAX 3.5 cm 4.2 - 5.9 / 3.9 - 5.3 cm IVS Diastolic Thickness 0.8 cm 0.6 - 1.0 / 0.6 - 0.9 cm IVS Systolic Thickness 1.6 cm LVPW Diastolic Thickness 1.9 cm 0.6 - 1.0 / 0.6 - 0.9 cm LVPW Systolic Thickness 2.1 cm LVOT Diameter 2.0 cm LV Ejection Fraction 2D Teich 54.7 % LV Ejection Fraction MOD 4C 61.6 % LV Ejection Fraction MOD 2C 61.1 % LV Ejection Fraction 2C AL 59.3 % LA Diameter 3.2 cm RA Systolic Volume 4C AL 8.7 ml RA Systolic Volume 4C MOD 7.9 ml LA Sys Volume AL 14.0 cm cubed LA Sys Volume Index AL 7.0 cm cubed/m squared Aorta at Sinotubular Diameter 1.7 cm IVC Diameter 1.5 cm M-MODE LA Ao Ratio MM 0.7 AV Cusp Separation MM 1.1 cm DOPPLER AV Peak Velocity 89.0 cm/s LVOT Peak Velocity 82.0 cm/s AV Area Cont Eq vti 2.9 cm squared AV Area Cont Eq pk 2.9 cm squared MV Peak Velocity 72.0 cm/s MV Area PHT 3.9 cm squared Mitral E to A Ratio 1.2 TR Peak Velocity 118.0 cm/s TR Peak Gradient 5.6 mmHg TR Mean Velocity 94.0 cm/s TR Mean Gradient 3.8 mmHg TR Velocity Time Integral 34.9 cm TV Peak E Velocity 65.0 cm/s Right Atrial Pressure 3.0 mmHg Pulmonary Artery Systolic Pressu 8.6 mmHg PV Peak Velocity 84.0 cm/s RV Ejection Time 0.4 s FINDINGS Left Ventricle Normal left ventricular size and systolic function, EF of 60%.moderate left ventricular hypertrophy. Mild hypokinesia of the basal septal segment Right Ventricle The right ventricle is normal in size and function. Right Atrium The right atrium is normal in size. Left Atrium The left atrium is normal in size. Mitral Valve No gross abnormalities noted Aortic Valve No gross abnormality noted Tricuspid Valve No gross abnormality noted Pulmonic Valve Mild pulmonary valve regurgitation. Pericardium Normal pericardium without effusion. Aorta Normal ascending aorta dimension. IVC Normal inferior vena cava. CONCLUSIONS Normal left ventricular size and systolic function, EF of 60%.moderate left ventricular hypertrophy. Mild hypokinesia of the basal septal segment. Mild pulmonary valve regurgitation. There is no pericardial effusion. There are no intracardiac masses. No similar previous studies are available for comparison Dr Domingo Rocha MD FACC (Electronically Signed) Final Date: 24 March 2024 23:01 S
== END 2024-03-24 08:03 | disposition home or self-care (01) ==
PROVIDERS: PCP Internal Medicine; Visit Provider Internal Medicine
DX: I51.7 Cardiomegaly (principal); C78.01 Secondary malignant neoplasm of right lung; C78.02 Secondary malignant neoplasm of left lung; G89.3 Neoplasm related pain (acute) (chronic)
CPT/HCPCS: 93306

== ENCOUNTER 2024-04-06 14:00 | Oncology outpatient (recurring) (ONCR) | payer BC, SELFPAY ==
[2024-03-12] MEDS: sodium chloride 0.9% 1,000 ML 999 ML IV (15:07)
[2024-03-12 16:21] VITALS: BP 114/80; PULSE 80; RESP 16; TEMP 36.7; O2SAT 99
[2024-03-16 14:31] VITALS: BP 127/75; PULSE 87; RESP 18; TEMP 36.6; O2SAT 96
[2024-03-16] MEDS: sodium chloride 0.9% 1,000 ML 999 ML IV (14:54)
[2024-03-16 16:03] VITALS: BP 105/73; PULSE 66; RESP 16; TEMP 35.9; O2SAT 96
[2024-03-19 14:23] VITALS: BP 97/55; PULSE 68; RESP 16; TEMP 35.6; O2SAT 99
[2024-03-19] MEDS: sodium chloride 0.9% 1,000 ML 999 ML IV (14:28)
[2024-03-19 15:05] VITALS: BP 104/49; PULSE 75; RESP 16; TEMP 36.2; O2SAT 98
[2024-03-24 09:10] VITALS: BP 104/60; PULSE 64; RESP 16; TEMP 36.2; O2SAT 97
[2024-03-24] MEDS: sodium chloride 0.9% 1,000 ML 999 ML IV (09:19)
[2024-03-24 10:23] VITALS: BP 116/66; PULSE 17; RESP 76; TEMP 36.3; O2SAT 97
[2024-03-26] MEDS: sodium chloride 0.9% 1,000 ML 999 ML IV (14:15)
[2024-03-26 15:05] VITALS: BP 107/35; PULSE 56; RESP 16; TEMP 36.4; O2SAT 97
[2024-03-30 14:10] VITALS: BP 102/67; PULSE 69; RESP 16; TEMP 36.4; O2SAT 99
[2024-03-30] MEDS: sodium chloride 0.9% 1,000 ML 999 ML IV (14:17)
[2024-03-30 15:05] VITALS: BP 111/70; PULSE 73; RESP 16; TEMP 36.4; O2SAT 99
[2024-04-02] MEDS: sodium chloride 0.9% 1,000 ML 999 ML IV (13:58)
[2024-04-06 14:12] VITALS: BP 115/66; PULSE 57; RESP 18; TEMP 36.1; O2SAT 99
[2024-04-06] MEDS: sodium chloride 0.9% 1,000 ML 999 ML IV (14:19)
[2024-04-06 15:25] VITALS: BP 107/75; PULSE 71; RESP 16; TEMP 36.7; O2SAT 99
== END 2024-04-06 23:59 | disposition home or self-care (01) ==
PROVIDERS: PCP Internal Medicine; Visit Provider Internal Medicine
DX: Z53.9 Procedure and treatment not carried out, unspecified reason (principal); Z79.899 Other long term (current) drug therapy; C50.912 Malignant neoplasm of unspecified site of left female breast; E86.0 Dehydration
CPT/HCPCS: 96360; J7030

== ENCOUNTER 2024-05-07 14:00 | Oncology outpatient (recurring) (ONCR) | payer BC, SELFPAY ==
[2024-04-09 14:34] VITALS: PULSE 75; RESP 18; TEMP 36.6; O2SAT 98
[2024-04-09 14:40] VITALS: BP 110/75; O2SAT 98
[2024-04-09] MEDS: sodium chloride 0.9% 1,000 ML 999 ML IV (14:40)
[2024-04-09 15:55] VITALS: BP 115/70; PULSE 65; RESP 17; TEMP 36.2; O2SAT 97
[2024-04-13] MEDS: sodium chloride 0.9% 1,000 ML 999 ML IV (14:25)
[2024-04-13 15:10] VITALS: BP 104/71; PULSE 75; RESP 16; TEMP 36; O2SAT 98
[2024-04-16 14:33] VITALS: BP 116/70; PULSE 73; RESP 16; TEMP 37.2; O2SAT 97
[2024-04-16] MEDS: sodium chloride 0.9% 1,000 ML 999 ML IV (14:34)
[2024-04-20] MEDS: sodium chloride 0.9% 1,000 ML 999 ML IV (14:50)
[2024-04-20 14:54] VITALS: BP 104/70; PULSE 76; RESP 16; TEMP 36.2; O2SAT 96
[2024-04-20 15:38] VITALS: BP 105/72; PULSE 65; TEMP 35.9; O2SAT 98
[2024-04-23] MEDS: sodium chloride 0.9% 1,000 ML 999 ML IV (14:15)
[2024-04-23 14:21] VITALS: BP 119/80; PULSE 94; RESP 18; TEMP 36.6; O2SAT 94
[2024-04-27] MEDS: sodium chloride 0.9% 1,000 ML 999 ML IV (14:29)
[2024-04-30 14:30] VITALS: BP 113/77; PULSE 61; RESP 16; TEMP 36.6; O2SAT 98
[2024-04-30] MEDS: sodium chloride 0.9% 1,000 ML 999 ML IV (14:51)
[2024-04-30 15:55] VITALS: BP 132/68; PULSE 74; RESP 17; TEMP 36.4; O2SAT 98
[2024-05-04 14:11] VITALS: BP 114/75; PULSE 75; RESP 17; TEMP 37; O2SAT 97
[2024-05-04] MEDS: sodium chloride 0.9% 1,000 ML 999 ML IV (14:15)
[2024-05-04 14:55] VITALS: BP 104/64; PULSE 75; RESP 16; TEMP 36.3; O2SAT 95
[2024-05-07] MEDS: sodium chloride 0.9% 1,000 ML 999 ML IV (15:14)
== END 2024-05-07 23:59 | disposition home or self-care (01) ==
PROVIDERS: PCP Internal Medicine; Visit Provider Internal Medicine
DX: Z79.899 Other long term (current) drug therapy (principal); C50.912 Malignant neoplasm of unspecified site of left female breast; E86.0 Dehydration; Z53.9 Procedure and treatment not carried out, unspecified reason
CPT/HCPCS: 96360; 96365; J7030

== ENCOUNTER 2024-05-18 14:20 | Outpatient (CLI) | payer BC, SELFPAY ==
--- NOTE | 2024-05-18 14:37 | CT_ITS ---
WS: [id number] CT CHEST, ABDOMEN AND PELVIS WITH CONTRAST HISTORY: MALIGNANT NEOPLASM OF LUNGS, history of breast cancer. TECHNIQUE: Contiguous 5 mm axial imaging performed through the chest, abdomen and pelvis with IV cont rast, oral contrast has been provided. Coronal and sagittal reformats chest. Coronal and sagittal ref ormats through the abdomen and pelvis. All CT scans at [facility] use at least one of these d ose optimization techniques: automated exposure control; mA and/or kV adjustment per patient size (in cludes targeted exams where dose is matched to clinical indication); or iterative reconstruction. CONTRAST: Omnipaque 350; 100 mL IV. DLP: 976.26 mGy.cm COMPARISON: 02/24/[address]: Reidentified is a slightly irregular RIGHT lower lobe pulmonary nodule that was described o n 02/24/2024. Nodule is less spiculated but appears more consolidated. Nodule measures 1.5 x 1.6 x 0.7 cm (AP x CC x TV). Nodule is measuring just slightly greater in size and also visually appears more prominent. There numerous additional scattered areas of groundglass and hazy opacification. Some of these have progressed since the prior study. These could represent very early metastatic sites also. LEFT subclavian Port-A-Cath. No mediastinal or hilar adenopathy. Heart is normal size. No pericardial or pleural effusions. Bilateral breast implants. No axillary lymph nodes. No hiatal hernia. Abdomen CT: Liver is normal size. Mild focal fatty sparing along the falciform ligament was also pres ent on the prior examination. No metastatic liver lesions. Normal portal vein. Normal gallbladder, sp daphne, adrenal glands and pancreas. Kidneys are enhancing normally with no obstruction or mass. Normal aorta. Mesenteric arteries are negative. Stomach is markedly distended with food products and oral contrast. No small bowel obstruction. Sligh t increased amount of fluid in the colon. There is a short segment stricture with enhancement near th e hepatic flexure. This was not present on the most recent exam. Appendix is negative. Pelvic CT: No free fluid or adenopathy in the pelvis. CT/CT chest abdpel w/*[id number] IMPRESSION: 1. Slight increase in size and overall prominence of the previously described RIGHT lower lobe pulmonary nodule now measuring 1.5 x 1.6 x 0.7 cm. Metastatic site is not excluded. Consider PET/CT evaluation. 2. Additional scattered areas of groundglass attenuation throughout both lungs . Some of these are more prominent than on the most recent exam. These may be a reas of pneumonitis but early metastatic sites cannot be excluded either. 3. No lymphadenopathy in the chest, abdomen or pelvis. 4. Liquid feces filled colon. There is a short segment area of stricture with mucosal thickening towards the hepatic flexure which was not present on the farhan or study. This area could also be evaluated by PET/CT imaging or colonoscopy or follow-up CT with contrast. 5. No ascites. 6. No metastatic disease in the liver or adrenal glands.
[2024-05-18] MEDS: iohexol 350 mg/mL 500 mL Btl (per mL) PO (15:46)
[2024-05-18] MEDS: iohexol 350 mg/mL 500 mL Btl (per mL) IV (15:48)
== END 2024-05-18 14:21 | disposition home or self-care (01) ==
LOC: RAD 14:21
PROVIDERS: PCP Internal Medicine; Visit Provider Internal Medicine
DX: R91.1 Solitary pulmonary nodule (principal); C78.01 Secondary malignant neoplasm of right lung; C78.02 Secondary malignant neoplasm of left lung; J84.10 Pulmonary fibrosis, unspecified; K56.690 Other partial intestinal obstruction
CPT/HCPCS: 71260; 74177

== ENCOUNTER 2024-05-28 14:30 | Oncology outpatient (recurring) (ONCR) | payer BC, SELFPAY ==
[2024-05-11] MEDS: sodium chloride 0.9% 1,000 ML 999 ML IV (13:45)
[2024-05-14 14:15] VITALS: BP 125/85; PULSE 95; RESP 16; TEMP 36.8; O2SAT 99
[2024-05-14] MEDS: sodium chloride 0.9% 1,000 ML 999 ML IV (14:29)
[2024-05-18] MEDS: sodium chloride 0.9% 1,000 ML 999 ML IV (13:05)
[2024-05-21 14:49] VITALS: BP 109/76; PULSE 79; RESP 16; TEMP 36.4; O2SAT 93
[2024-05-21] MEDS: sodium chloride 0.9% 1,000 ML 999 ML IV (15:00)
[2024-05-25] MEDS: sodium chloride 0.9% 1,000 ML 999 ML IV (14:26)
[2024-05-25 15:36] VITALS: BP 103/70; PULSE 62; RESP 16; TEMP 36.8; O2SAT 98
[2024-05-28] MEDS: sodium chloride 0.9% 1,000 ML 999 ML IV (14:35)
[2024-05-28 15:45] VITALS: BP 101/48; PULSE 68; RESP 16; TEMP 35.9; O2SAT 98
== END 2024-06-06 23:59 | disposition home or self-care (01) ==
PROVIDERS: PCP Internal Medicine; Visit Provider Internal Medicine
DX: C50.912 Malignant neoplasm of unspecified site of left female breast; E86.0 Dehydration; Z79.899 Other long term (current) drug therapy; Z53.9 Procedure and treatment not carried out, unspecified reason
CPT/HCPCS: 96360; J7030

== ENCOUNTER 2024-06-06 18:52 | Observation (INO) | payer BC, SELFPAY ==
[2024-06-06 18:59] VITALS: BP 101/68; PULSE 89; RESP 17; TEMP 36.7; O2SAT 97; BMI 26.4
--- NOTE | 2024-06-06 19:09 | CTR_ITS ---
PROCEDURE INFORMATION: Exam: CT Head Without Contrast Exam date and time: 06/06/2024 7:20 PM Age: 53 years old Clinical indication: Stroke-like symptoms; Left facial droop; Lt lower extremity weakness; Additional info: Symptoms of acute stroke TECHNIQUE: Imaging protocol: Computed tomography of the head without contrast. Radiation optimization: All CT scans at this facility use at least one of these dose optimization techniques: automated exposure control; mA and/or kV adjustment per patient size (includes targeted exams where dose is matched to clinical indication); or iterative reconstruction. Other technique: STROKE PROTOCOL was implemented. COMPARISON: MR head wo/w con [id number] 01/15/2024 1:10 PM RADIATION DOSE METRICS: Total DLP (mGy-cm): 1015.18 FINDINGS: Brain: There is extensive right inferior frontal encephalomalacia at site of prior surgery. There is white matter lucency consistent with chronic microvascular disease. There are old basal ganglia lacunar infarcts. No acute infarct is identified. There is no hemorrhage. There is a small extra-axial right frontal fluid collection. This is fluid density with no evidence of hemorrhage. This is unchanged from prior scan. No mass identified within limits of noncontrast scan. There are right frontal calcifications without associated mass effect or edema. Cerebral ventricles: There is ex vacuo dilatation of the right lateral ventricle. Paranasal sinuses: Visualized sinuses are unremarkable. No fluid levels. Mastoid air cells: Visualized mastoid air cells are well aerated. Bones: Status post right frontal craniectomy and cranioplasty. Soft tissues: Unremarkable. CT/CT head thrombolytic [id number] IMPRESSION: 1. Right frontal postoperative cavity with encephalomalacia and gliosis. 2. Chronic microvascular disease with old lacunar infarcts. 3. No acute intracranial lesion or injury ASSESSMENT: ASPECTS ([place] Stroke Program Early CT Score) is 10.
--- NOTE | 2024-06-06 19:09 | ECG_ITS ---
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 Measurements Intervals [place] Rate: 79 P: 51 ME: 169 QRS: -10 QRSD: 90 T: 13 QT: 402 QTc: 463 Interpretive Statements SINUS RHYTHM No previous ECG available for comparison Electronically Signed On 06-07-2024 18:51:02 SENIOR STAFF PSYCHOLOGIST by Jace Mcfarlane M.D. [email or web address]
[2024-06-06 19:46] LABS: Basophils % 0.3 %; Eosinophils # 0.2 10^3/uL (0.0-0.8); Hematocrit 37.2 % (36-47); Lymphocytes # 1.6 10^3/uL (0.8-4.8); Lymphocytes % 14.1 %; Mean Corpuscular HGB Conc 32.8 g/dL (30-55); Mean Corpuscular Hemoglobin 30.1 pg (27-33); Mean Corpuscular Volume 91.9 fl (85-98); Mean Platelet Volume 9.5 fL (7.4-10.4); Monocytes # 1.1 10^3/uL (0.2-0.9); Neutrophils # 8.09 10^3/uL (1.8-7.7); Neutrophils % 73.2 %; Nucleated Red Blood Cells % 0 %; Platelet Count 334 10^3/cmm (157-399); Red Blood Count 4.05 10^6/uL (3.85-5.65); Red Cell Distribution Width 13.2 % (12.1-15.1); White Blood Count 11.03 10^3/uL (3.29-11.43)
[2024-06-06 20:01] LABS: INR 0.92 (0.8-1.2)
[2024-06-06 20:06] LABS: Alanine Aminotransferase 28 U/L (0-33); Albumin Level 4.1 g/dL (3.5-5.2); Alkaline Phosphatase 100 U/L (35-105); Aspartate Amino Transferase 27 U/L (0-32); Blood Urea Nitrogen 22 mg/dL (6-20); Calcium 9.1 mg/dL (8.5-10.5); Carbon Dioxide 25 mmol/L (22-29); Chloride 107 mmol/L (98-107); Creatinine Clr Calc Pharmacy 81.4447; Globulin 2.1 g/dL (1.3-4.6); Glomerular Filtration Rate 65.2 mL/min (90-130); Glucose 93 mg/dL (65-115); Osmolality Calculated 301 mOsm/kg (285-295); Sodium 144 mmol/L (136-145); Total Bilirubin 0.2 mg/dL (0.15-1.2); Total Protein 6.2 g/dL (6.6-8.7)
[2024-06-06 22:31] VITALS: BP 115/69; PULSE 72; RESP 16; O2SAT 95
[2024-06-06 22:34] VITALS: BP 115/69; PULSE 72; O2SAT 97
--- NOTE | 2024-06-06 22:39 | ED_ITS ---
HPI - Neuro Symptoms/Deficit 2 General: Chief Complaint: Neuro Symptoms/Deficit Stated Complaint: left side suddenly weak Time Seen by Provider: 06/06/24 19:08 History of Present Illness: 53-year-old female with a history of jeanmarie ast cancer. 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 She says that she has a recurrence in the brain currently, that is being watched by neurosurgery in [place]. She is also undergoing chemotherapy every couple of weeks there. She has been getting fluid a couple of times a week here in the oncology department for fluid support. she felt poorly. She was generally weak, not feeling well. She went to bed and on Saturday morning, awoke with left-sided dense facial weakness. She is weak in her left upper and lower extremity as well. She was left with chronic left-sided weakness after surgery, although she notes until , she had been using a bicycle, riding 2 miles daily and doing some walking. She is so weak now that she could not do that. However, she can walk. She denies headache. She denies fever. She denies other symptoms. Related Data Home Medications Medication Instructions Recorded Confirmed diphenoxylate-atropine 2.5 1 tab PO QID loose stools 12/09/23 06/07/24 mg-0.025 mg tablet lapatinib 250 mg tablet 750 mg PO DAILY 12/09/23 06/07/24 letrozole 2.5 mg tablet 2.5 mg PO DAILY 12/09/23 06/07/24 pyridoxine (vitamin B6) 100 mg 100 mg PO DAILY 12/09/23 06/07/24 tablet (Vitamin B-6) alpha lipoic acid 100 mg capsule 100 mg PO DAILY 06/07/24 06/07/24 calcium carbonate 300 mg PO DAILY 06/07/24 06/07/24 cholecalciferol (vitamin D3) 50 50 mcg PO DAILY 06/07/24 06/07/24 mcg (2,000 unit) tablet (Vitamin D3) lapatinib 250 mg tablet (Tykerb) 750 mg PO DAILY 06/07/24 06/07/24 [id number] fumarate 18 1 tab-cap PO QAM 06/07/24 06/07/24 mg-FA 600 mcg-vit K 40 mcg capsule (Multi For Her) Previous Rx's Medication Instructions Recorded docusate sodium 100 mg capsule 100 mg PO BID #10 caps 12/10/23 (Colace) Allergies Allergy/AdvReac Type Severity Reaction Status Date / Time No Known Allergies Allergy Verified 06/06/24 19:15 PFS ED 2 PFSH: Medical History (Updated 06/07/24 @ 13:59 by Pankaj Orellana MD) Prediabetes Port-A-Cath in place Breast cancer in female Surgical History Hx of brain surgery tumor removal Hx of mastectomy Family History Mother Cancer brain Father Pulmonary fibrosis Social History Smoking and tobacco/nicotine status: never used tobacco/nicotine Second hand smoke exposure: No Alcohol intake: never Substance/Drug Use: never NIH stroke score 2 NIHSS: Level Of Consciousness - 1a: 0 Level Of Consciousness Questions - 1b: Both Correct Level Of Consciousness Commands - 1c: Both Correct Best Gaze - 2: Normal Visual Sweeney - 3: No Visual Loss Facial Palsy - 4: P artial Paralysis Motor Arm Right - 5: No Drift Motor Arm Left - 5: No Drift Motor Leg Right - 6: No Drift Motor Leg Left - 6: No Drift Limb Ataxia - 7: Absent Sensory - 8: Normal Best Language - 9: No Aphasia D ysarthia - 10: Normal Extinction And Inattention - 11: 0 Score: Total Score: 2 Physical Exam 2 Const: COMMON NORMALS: no acute distress GENERAL APPEARANCE: cooperative; not ill appearing and not frail appearing HENMT: COMMON NORMALS: normocephalic, atraumatic and Normal external nose present HEAD & SCALP: normocephalic and atraumatic FACE & SINUS: normal facial exam and face symmetric NOSE: Normal external nose present Eye: COMMON NORMALS: Equal, round and reactive pupils present and EOMs intact bilaterally PUPIL: Yes Equal, round and reactive pupils present Neck/C-Spine: GENERAL: Yes trachea midline Chest: CHEST: Yes Symmetrical chest wall rise Resp: COMMON NORMALS: normal respiratory effort, No retractions, No use of accessory muscles and clear to auscultation bilaterally AUSCULTATION: clear to auscultation bilaterally Cardio: COMMON NORMALS: regular rate and regular rhythm RATE: regular rate RHYTHM: regular rhythm GI: COMMON NORMALS: Normal to inspection, nondistended, normoactive bowel sounds present Extremity: COMMON NORMALS: no pedal edema Neuro: ELIA COMA SCALE: document GCS findings Elia coma scale eye opening: Spontaneous [place] coma scale verbal response: Orientated [place] coma scale motor response: Obey commands [place] coma scale total score: 15 S ENSORY EXAM: Yes extremities (intact) Psych: COMMON NORMALS: speech normal SPEECH: Yes normal speech Skin: COMMON NORMALS: no rashes or lesions noted GENERAL SKIN EXAM: no rashes or lesions noted Course 2 Vital Signs: Vital signs: Vital Signs Temperature 98 F 06/07/24 15:52 Pulse Rate 71 06/07/24 15:52 Respiratory Rate 16 06/07/24 15:52 Blood Pressure 100/65 06/07/24 15:52 Pulse Oximetry 95 06/07/24 15:52 Oxygen Delivery Me thod Room Air 06/07/24 15:52 MDM - Neuro Symptoms/Deficit Medical Decision Making Vitals been stable. CBC is normal. BMP shows a BUN of [address] and is otherwise normal. CT shows no acute findings. There is chronic microvascular disease, and a right frontal postoperative cavity within cephalin elation gliosis that appears stable. Nevertheless, this lady has new left-sided facial weakness, with worsening weakness to the left upper and lower extremity, not resolved on its own. Will observe for stroke workup. Hospitalist agrees. Lab Data 06/07/24 03:06 06/07/24 03:[address] 06/06/24 19:09 IMPRESSION: 1. Right frontal postoperative cavity with encephalomalacia and gliosis. 2. Chronic microvascular disease with old lacunar infarcts. 3. No acute intracranial lesion or injury ASSESSMENT: ASPECTS ([place] Stroke Program Early CT Score) is 10. Laboratory Results WBC 11.03 10^3/uL (3.29-11.43) 06/06/24 19:35 RBC 4.05 10^6/uL (3.85-5.65) 06/06/24 19:35 Hgb 12.20 g/dL (11.27-16.99) 06/06/24 19:35 Hct 37.2 % (36-47) 06/06/24 19:35 MCV 91.9 fl (85-98) 06/06/24 19:35 MCH 30.1 pg (27-33) 06/06/24 19:35 MCHC 32.8 g/dL (30-55) 06/06/24 19:35 RDW 13.2 % (12.1-15.1) 06/06/24 19:35 Plt Count 334 10^3/cmm (157-399) 06/06/24 19:35 MPV 9.5 fL (7.4-10.4) 06/06/24 19:35 Neut % (Auto) 73.2 % 06/06/24 19:35 Lymph % (Auto) 14.1 % 06/06/24 19:35 [place] % (Auto) 10.0 % 06/06/24 19:35 Eos % (Auto) 2.0 % 06/06/24 19:35 Baso % (Auto) 0.3 % 06/06/24 19:35 Neut # (Auto) 8.09 10^3/uL (1.8-7.7) H 06/06/24 19:35 Lymph # (Auto) 1.6 10^3/uL (0.8-4.8) 06/06/24 19:35 [place] # (Auto) 1.1 10^3/uL (0.2-0.9) H 06/06/24 19:35 Eos # (Auto) 0.2 10^3/uL (0.0-0.8) 06/06/24 19:35 Baso # (Auto) 0.0 10^3/uL (0.0-0.1) 06/06/24 19:35 Nucleated RBC % (auto) 0 % 06/06/24 19:35 Nucleated RBCs # 0.0 /100WBC 06/06/24 19:35 PT 12.60 SECONDS (12.1-14.9) 06/06/24 19:35 INR 0.92 (0.8-1.2) 06/06/24 19:35 APTT 30.0 SECONDS (23.9-36.7) 06/06/24 19:35 Sodium 144 mmol/L (136-145) 06/06/24 19:35 Potassium 4.0 mmol/L (3.5-5.1) 06/06/24 19:35 Chloride 107 mmol/L (98-107) 11/30/24 19:35 Carbon Dioxide 25 mmol/L (22-29) 06/06/24 19:35 Anion Gap 16.0 (5-19) 06/06/24 19:35 BUN 22 mg/dL (6-20) H 06/06/24 19:35 Creatinine 0.9 mg/dL (0.5-0.9) 06/06/24 19:35 GFR Calculation 65.2 mL/min (90-130) L 06/06/24 19:35 Glucose 93 mg/dL (65-115) 06/06/24 19:35 Calculated Osmolality 301 mOsm/kg (285-295) H 06/06/24 19:35 Calcium 9.1 mg/dL (8.5-10.5) 06/06/24 19:35 Total Bilirubin 0.2 mg/dL (0.15-1.2) 06/06/24 19:35 AST 27 U/L (0-32) 06/06/24 19:35 ALT 28 U/L (0-33) 06/06/24 19:35 Alkaline Phosphatase 100 U/L (35-105) 06/06/24 19:35 Total Protein 6.2 g/dL (6.6-8.7) L 06/06/24 19:35 Albumin 4.1 g/dL (3.5-5.2) 06/06/24 19:35 Globulin 2.1 g/dL (1.3-4.6) 06/06/24 19:35 All radiology interpretation(s) finalized by discharge Discharge Plan Discharge Patient Disposition: Admitted As Inpatient Admit Provider: Chey Spencer Clinical Impression: Acute left-sided weakness Condition: Fair Coding Level of Care Code ED Pipeline Inspector for Chg Fwd
[2024-06-07] VITALS (11 sets, daily range): BP systolic 94–116; BP diastolic 53–70; PULSE 60–81; RESP 15–18; TEMP 36.4–36.6; O2SAT 95–98
[2024-06-07 00:33] LABS: Glucose Point of Care 90 mg/dL (70-110)
--- NOTE | 2024-06-07 00:55 | USCV_ITS ---
Malorie Briggs Age: 53 Gender: F : 1970 Exam Date: 06/07/2024 14:33 Ordering Phys: Chey Spencer MD Technologist: Ok Rascon Exam Location: [facility] [place] Indication: stroke BP: 106 / 61 HR: 77 Rhythm: Sinus Technical Quality: Adequate MEASUREMENTS (Male / Female) Normal Values 2D ECHO LV Diastolic Diameter PLAX 4.5 cm 4.2 - 5.9 / 3.9 - 5.3 cm IVS Diastolic Thickness 1.2 cm 0.6 - 1.0 / 0.6 - 0.9 cm IVS Systolic Thickness 1.5 cm LVPW Diastolic Thickness 1.4 cm 0.6 - 1.0 / 0.6 - 0.9 cm LVPW Systolic Thickness 2.0 cm LVOT Diameter 2.1 cm LV Ejection Fraction 2D Teich 61.8 % LV Ejection Fraction MOD 4C 61.7 % LV Ejection Fraction MOD 2C 59.2 % LV Ejection Fraction 2C AL 59.9 % LA Diameter 3.0 cm RA Systolic Volume 4C AL 21.7 ml RA Systolic Volume 4C MOD 19.5 ml LA Sys Volume AL 27.9 cm cubed LA Sys Volume Index AL 14.1 cm cubed/m squared Aorta at Sinotubular Diameter 2.0 cm IVC Diameter 1.8 cm M-MODE LA Ao Ratio MM 1.2 AV Cusp Separation MM 1.9 cm DOPPLER AV Peak Velocity 114.0 cm/s LVOT Peak Velocity 58.0 cm/s AV Area Cont Eq vti 2.0 cm squared AV Area Cont Eq pk 1.7 cm squared MV Peak Velocity 93.0 cm/s MV Area PHT 4.1 cm squared Mitral E to A Ratio 1.1 TV Peak Velocity 201.0 cm/s TR Peak Velocity 247.0 cm/s TR Peak Gradient 24.4 mmHg TR Mean Velocity 198.0 cm/s TR Mean Gradient 17.3 mmHg TR Velocity Time Integral 54.9 cm PV Peak Velocity 106.0 cm/s RV Ejection Time 0.3 s FINDINGS Left Ventricle Left ventricle is normal in size. LV systolic function is normal with EF of 55-60%. No regional wall abnormalities are seen Right Ventricle Normal in size and function Right Atrium Normal in size Left Atrium Normal in size Mitral Valve Structurally normal mitral valve. Mild mitral regurgitation. Aortic Valve Structurally normal aortic valve. No significant stenosis or regurgitation Tricuspid Valve Mild tricuspid regurgitation. Pulmonary artery systolic pressure is normal. Pulmonic Valve Mild pulmonic regurgitation. Pericardium Normal Aorta Normal in size IVC Appears to be normal CONCLUSIONS LV systolic function is normal with EF of 55 to 60%. Mild mitral regurgitation Mild tricuspid regurgitation Mild pulmonic regurgitation Jace Mcfarlane MD (Electronically Signed) Final Date: 07 June 2024 18:31 S
--- NOTE | 2024-06-07 01:14 | P.HP_ITS ---
Providers/Chief Complaint 2 Admitting Physician: Chey Spencer MD Primary Care Provider: Vicenta Orellana DO Chief Complaint: left side suddenly weak History of Present Illness Malorie Briggs is a 53 year old female with a history of stage IV metastatic breast cancer with mets into the brain. She is status post resection of the brain lesion in 2019. She is currently on treatment with lapatinib for the same. She presents to the emergency room today due to chief complaints of left- sided weakness in the upper and lower extremity along with left-sided facial weakness. Her symptoms started shortly after waking up on Saturday morning, it is over 24 hours at this point. NH stroke scale of 2 upon presentation. She had reported in the ED that she has chronic left-sided weakness since her surgery in 2019 however currently states that the left-sided extremity weakness is new.Other pertinent history is that of MRSA bacteremia related to a port infection in the past. Her most recent port was placed in December 2023. Review of Systems 2 General: Reports: 10 or more systems reviewed and unremarkable except in HPI and below Const: Denies: fever(s), chills or body aches Eyes: Denies: change in vision, blurry vision or photophobia ENMT: Reports: hoarseness; Denies: throat pain, enlarged tonsils, odynophagia or nasal congestion Card: Denies: chest pain, palpitations, irregular heart rhythm, edema, swelling of feet/ankles, lightheadedness, pre-syncope, dyspnea on exertion or orthopnea Resp: Denies: dyspnea, productive cough, non-productive cough, wheezing, stridor, pain on inspiration, change in phlegm color, hemoptysis or chest congestion GI: Denies: abdominal pain, nausea, vomiting, hematemesis, coffee ground emesis, dysphagia, heartburn, diarrhea, constipation, GI cramping, change in stool character, hematochezia or melena : Denies: flank pain, difficulty voiding, dysuria, urinary frequency, urinary urgency, urinary hesitancy or hematuria Musc: Denies: neck pain, back pain, extremity pain, joint swelling, joint warmth or deformity Neuro: Denies: headache(s), numbness in extremities, weakness in extremities, sensory changes, difficulty walking, frequent falls, dizziness, vertigo, behavioral changes, Slurred speech present or seizure-like activity Psych: Denies: anxiety, depression, suicidal ideation or homicidal ideation Endo: Denies: polyuria, polydipsia, tired all the time, cold intolerance or hot flashes Walter/Lymph: Denies: easy bruising or easy bleeding Medications/Allergies Home Medications Medication Instructions Recorded Confirmed Last Taken Type alpha lipoic acid 200 mg capsule 200 mg PO DAILY 12/09/23 12/23/23 12/09/23 History calcium-magnesium 750 mg-465 mg 1 tab PO DAILY 12/09/23 12/23/23 12/09/23 History tablet diphenoxylate-atropine 2.5 1 tab PO QID loose stools 12/09/23 12/23/23 12/10/23 History mg-0.025 mg tablet lapatinib 250 mg tablet 750 mg PO DAILY 12/09/23 12/23/23 12/09/23 History letrozole 2.5 mg tablet 2.5 mg PO DAILY 12/09/23 12/23/23 12/09/23 History eohlzunzuuxo-Rt-sbci-minerals 1 pkg PO DAILY 12/09/23 12/23/23 12/09/23 History pyridoxine (vitamin B6) 100 mg 100 mg PO DAILY 12/09/23 12/23/23 12/09/23 History tablet (Vitamin B-6) docusate sodium 100 mg capsule 100 mg PO BID #10 caps 12/10/23 12/23/23 Unknown Rx (Colace) hydrocodone 7.5 mg-acetaminophen 1 tab PO Q6H PRN pain #10 tabs 12/10/23 12/23/23 Unknown Rx 325 mg tablet Allergies Allergy/AdvReac Type Severity Reaction Status Date / Time No Known Allergies Allergy Verified 06/06/24 19:15 PFSH Acute 2 PFSH: Medical History Port-A-Cath in place Breast cancer in female Surgical History Hx of brain surgery tumor removal Hx of mastectomy Family History Mother Cancer brain Father Pulmonary fibrosis Social History Smoking and tobacco/nicotine status: never used tobacco/nicotine Second hand smoke exposure: No Alcohol intake: never Substance/Drug Use: never Vitals/I&O/Wt Last Vital Signs Temp 98.0 F 06/06/24 18:59 Pulse 72 06/06/24 22:34 Resp 16 06/06/24 22:31 BP 115/69 06/06/24 22:34 Pulse Ox 97 06/06/24 22:34 O2 Del Method Room Air 06/06/24 23:44 Weight last 48 hrs Weight 80.059 kg Weight 81.193 kg Physical Exam 2 Narrative: General: No acute distress, AO x3 HEENT: PERRLA, pupils bilaterally equal and reactive, pallors not present Chest: Normal vesicular breath sounds, no added sounds, equal good air entry bilaterally CVS: S1-S2 regular, no murmurs, no tachycardia, no gallops, no rubs Abdomen: Soft, nontender, no organomegaly, bowel sounds present Neuro: Left-sided facial weakness, dysarthria result of the weakness, left upper and lower extremity weakness. Lower extremity power 3 out of 5, upper extremity 4 out of 5. Data 06/07/24 03:06 06/07/24 03:06 Other data: [employer] [address] [place] [address] CT Scan Report Signed Patient: Malorie Briggs Unit #: [id number] : 1970 Age/Sex: 53 / F ADM Date: 06/06/24 Loc: ER Room/Bed: Attending Dr: Ordering Provider/Ordering MD: True Segura DO Date of Service: 06/06/24 Procedure(s): CT head thrombolytic 76119 Accession Number(s): [id number] Report Number: [id number] PROCEDURE INFORMATION: Exam: CT Head Without Contrast Exam date and time: 06/06/2024 7:20 PM Age: 53 years old Clinical indication: Stroke-like symptoms; Left facial droop; Lt lower extremity weakness; Additional info: Symptoms of acute stroke TECHNIQUE: Imaging protocol: Computed tomography of the head without contrast. Radiation optimization: All CT scans at this facility use at least one of these dose optimization techniques: automated exposure control; mA and/or kV adjustment per patient size (includes targeted exams where dose is matched to clinical indication); or iterative reconstruction. Other technique: STROKE PROTOCOL was implemented. COMPARISON: MR head wo/w con [id number] 01/15/2024 1:10 PM RADIATION DOSE METRICS: Total DLP (mGy-cm): 1015.18 FINDINGS: Brain: There is extensive right inferior frontal encephalomalacia at site of prior surgery. There is white matter lucency consistent with chronic microvascular disease. There are old basal ganglia lacunar infarcts. No acute infarct is identified. There is no hemorrhage. There is a small extra-axial right frontal fluid collection. This is fluid density with no evidence of hemorrhage. This is unchanged from prior scan. No mass identified within limits of noncontrast scan. There are right frontal calcifications without associated mass effect or edema. Cerebral ventricles: There is ex vacuo dilatation of the right lateral ventricle. Paranasal sinuses: Visualized sinuses are unremarkable. No fluid levels. Mastoid air cells: Visualized mastoid air cells are well aerated. Bones: Status post right frontal craniectomy and cranioplasty. Soft tissues: Unremarkable. CT/CT head thrombolytic [id number] IMPRESSION: 1. Right frontal postoperative cavity with encephalomalacia and gliosis. 2. Chronic microvascular disease with old lacunar infarcts. 3. No acute intracranial lesion or injury A&P Assessment and plan (1) Stroke: Admit the patient to [facility] for close neuro monitoring She is not a tPA candidate due to over 24 hours since onset of symptoms Continue telemetry monitoring on the unit to evaluate for underlying arrhythmias. CT head right frontal postop cavity with encephalomalacia and gliosis. Chronic microvascular disease with old lacunar infarcts. Echocardiogram ordered and pending Start aspirin 81 mg daily Atorvastatin 40 mg daily allow for permissive hypertension PT OT speech therapy assessment MRI of the brain to assess for cancer recurrence as a cause of underlying symptoms-this is unfortunately not available until Saturday (today is Saturday) (2) Breast cancer in female: Plan DVT prophylaxis: Heparin 5000 subcu every 12 hours Full code Attestations 2 Medical Necessity Statement*: Less than 2 midnight stay anticipated at this point. Coding Level of Care Code Acute Code for [facility] Diagnoses Stroke I63.9 Breast cancer in female C50.919
[2024-06-07 03:34] LABS: Basophils % 0.5 %; Eosinophils # 0.3 10^3/uL (0.0-0.8); Eosinophils % 3.3 %; Hematocrit 36.6 % (36-47); Lymphocytes # 1.9 10^3/uL (0.8-4.8); Lymphocytes % 24.6 %; Mean Corpuscular HGB Conc 32.2 g/dL (30-55); Mean Corpuscular Hemoglobin 30.2 pg (27-33); Mean Corpuscular Volume 93.6 fl (85-98); Mean Platelet Volume 9.5 fL (7.4-10.4); Monocytes # 0.6 10^3/uL (0.2-0.9); Monocytes % 8.2 %; Neutrophils # 4.86 10^3/uL (1.8-7.7); Neutrophils % 63.1 %; Nucleated Red Blood Cells % 0 %; Platelet Count 310 10^3/cmm (157-399); Red Blood Count 3.91 10^6/uL (3.85-5.65); Red Cell Distribution Width 13.2 % (12.1-15.1); White Blood Count 7.69 10^3/uL (3.29-11.43)
[2024-06-07 03:48] LABS: Alanine Aminotransferase 23 U/L (0-33); Albumin Level 3.9 g/dL (3.5-5.2); Alkaline Phosphatase 95 U/L (35-105); Anion Gap 14.1 (5-19); Aspartate Amino Transferase 23 U/L (0-32); Blood Urea Nitrogen 20 mg/dL (6-20); Calcium 8.8 mg/dL (8.5-10.5); Carbon Dioxide 25 mmol/L (22-29); Chloride 109 mmol/L (98-107); Creatinine Clr Calc Pharmacy 91.0496; Estmated Average Glucose 91; Globulin 1.8 g/dL (1.3-4.6); Glomerular Filtration Rate 74.7 mL/min (90-130); Glucose 87 mg/dL (65-115); Hemoglobin A1C 4.8 % (4.0-6.0); Osmolality Calculated 300 mOsm/kg (285-295); Potassium 4.1 mmol/L (3.5-5.1); Sodium 144 mmol/L (136-145); Total Bilirubin 0.3 mg/dL (0.15-1.2); Total Protein 5.7 g/dL (6.6-8.7)
[2024-06-07 03:52] LABS: Cholesterol 207 mg/dL (0-200); HDL Cholesterol 56 mg/dL (60-100); LDL Cholesterol Calculated 134 mg/dL (50-129); LDL HDL Ratio 2.39 RATIO (0.00-3.22); Triglycerides 83 mg/dL (0-150)
[2024-06-07] MEDS: heparin 5,000 unit/mL INJ 1 mL 5000 UNIT SUBCUT ×2 (08:21→18:37)
[2024-06-07] MEDS: pyridoxine 50 mg Tablet 100 MG PO (08:22)
[2024-06-07] MEDS: aspirin 81 mg EC Tablet PO (08:22)
[2024-06-07 10:32] LABS: Bilirubin Urine Negative (Negative); Blood Urine Negative (Negative); Glucose Urine UA Negative (Normal); Ketones Urine Negative (Negative); Leukocyte Esterase Urine 1+ (Negative); Nitrate Urine Positive (Negative); Protein Urine Negative (Negative); Specific Gravity, Urine 1.027 (1.005-1.030); Urine Appearance Clear (CLEAR); Urine Color Yellow (Yellow); pH Urine 6.5 (5-7)
[2024-06-07 10:37] LABS: Add Urine Microscopic? YES; Bacteria Urine 4+ /hpf; RBC Urine 0-2 /hpf (0-2); Squamous Epithelial Cell Urine 0-5 /hpf (0-5); WBC Urine 51-100 /hpf (0-5)
[2024-06-07 10:38] LABS: Add Urine Culture? Yes; Amphetamines Screen Urine Negative (Negative); Barbiturates Screen Urine Negative (Negative); Benzodiazepines Screen Urine Negative (Negative); Cocaine Screen Urine Negative (Negative); Opiate Screen Urine Negative (Negative); PCP Screen Urine Negative (Negative); THC Screen Urine Negative (Negative)
--- NOTE | 2024-06-07 11:00 | PC.SLP ---
recommend cold liquid to facilitate swallow
[2024-06-07 11:12] LABS: Iron 26 ug/dL (37-145); Percent Saturation 9.9 % (20-50); Thyroid Stimulating Hormone 2.58 uIU/mL (0.27-4.20); Total Iron Binding Capacity 262 mcg/dl; Unsaturated Iron Binding 236 ug/dL (112-347); Vitamin B12 692 pg/mL (232-1245)
[2024-06-07] MEDS: cefTRIAXone 1,000 mg SDV 1000 MG IVP (12:19)
--- NOTE | 2024-06-07 13:57 | P.PN_ITS ---
Subjective 2 Subjective: Admitted overnight. Seen with family at bedside. Patient states she is feeling better. Does not feel any weakness more than her usual on the left side. Denies any nausea, vomiting, headache. Denies any active dysuria symptoms but did have some dysuria symptoms around 4 or 5 days ago. Vitals/I&O/Wt Last Vital Signs Temp 97.7 F 06/07/24 11:52 Pulse 60 06/07/24 11:52 Resp 17 06/07/24 11:52 BP 108/61 06/07/24 12:45 Pulse Ox 98 06/07/24 11:52 O2 Del Method Room Air 06/07/24 11:52 Weight last 48 hrs Weight 80.059 kg Weight 80.059 kg Weight 81.193 kg Physical Exam 2 Narrative: General: No acute distress, AO x3 HEENT: PERRLA, pupils bilaterally equal and reactive, pallors not present Chest: Normal vesicular breath sounds, no added sounds, equal good air entry bilaterally CVS: S1-S2 regular, no murmurs, no tachycardia, no gallops, no rubs Abdomen: Soft, nontender, no organomegaly, bowel sounds present Neuro: Left-sided facial weakness, dysarthria result of the weakness, left upper and lower extremity weakness. Lower extremity power 3 out of 5, upper extremity 4 out of 5. Data 06/07/24 03:06 06/07/24 03:06 A&P Assessment and plan (1) Stroke: Concerns on admission. She is not a tPA candidate due to over 24 hours since onset of symptoms CT head right frontal postop cavity with encephalomalacia and gliosis. Chronic microvascular disease with old lacunar infarcts. Follow-up echocardiogram results. Start aspirin 81 mg daily, atorvastatin 40 mg daily Follow PT/OT. Advance diet as per speech evaluation. Goal blood pressure less than 140/90 mmHg with mean over 65 now. Will uptitrate to start medications as per blood pressures. MRI of the brain to assess for cancer recurrence as a cause of underlying symptoms-this is unfortunately not available until Saturday (today is Saturday) (2) Breast cancer in female: (3) Neoplasm of brain causing mass effect on adjacent structures: (4) Acute left-sided weakness: (5) UTI (urinary tract infection): Patient had dysuria symptoms around a week ago. UA concerning for mild UTI. Check blood cultures. Follow-up urine cultures. For now start on IV ceftriaxone 1 g daily. Plan DVT prophylaxis: Heparin 5000 subcu every 12 hours CODE STATUS: Again confirmed with the patient with at bedside. with the DPOA. Patient wants to remain full code Dysphagia level 7 diet Famotidine for PUD prophylaxis Attestations 2 Medical Necessity Statement*: Requires further hospitalization for management of acute on chronic left-sided weakness in a patient with history of breast cancer with mets to brain post brain mass removal, UTI Diagnoses Stroke I63.9 Breast cancer in female C50.919 Neoplasm of brain causing mass effect on adjacent structures D49.6 Acute left-sided weakness R53.1 UTI (urinary tract infection) N39.0
[2024-06-07 15:05] LABS: Procalcitonin 0.07 ng/mL (0-0.5)
[2024-06-07] MEDS: famotidine 20 mg Tablet PO (17:27)
[2024-06-07] MEDS: atorvastatin 40 mg Tablet PO (20:37)
[2024-06-08] VITALS (11 sets, daily range): BP systolic 98–124; BP diastolic 56–74; PULSE 64–75; RESP 16–18; TEMP 36.3–36.7; O2SAT 95–97
[2024-06-08 04:01] LABS: Basophils # 0.1 10^3/uL (0.0-0.1); Basophils % 0.7 %; Eosinophils # 0.3 10^3/uL (0.0-0.8); Eosinophils % 3.8 %; Lymphocytes # 2.2 10^3/uL (0.8-4.8); Lymphocytes % 31.9 %; Mean Corpuscular HGB Conc 31.1 g/dL (30-55); Mean Corpuscular Hemoglobin 29.4 pg (27-33); Mean Corpuscular Volume 94.5 fl (85-98); Mean Platelet Volume 9.7 fL (7.4-10.4); Monocytes # 0.6 10^3/uL (0.2-0.9); Monocytes % 9.3 %; Neutrophils # 3.73 10^3/uL (1.8-7.7); Nucleated Red Blood Cells % 0 %; Platelet Count 323 10^3/cmm (157-399); Red Blood Count 3.81 10^6/uL (3.85-5.65); Red Cell Distribution Width 13.2 % (12.1-15.1)
[2024-06-08 04:13] LABS: Chol HDL Ratio 3.96 mg/dL (0.0-4.40); Cholesterol 202 mg/dL (0-200); HDL Cholesterol 51 mg/dL (60-100); LDL Cholesterol Calculated 122 mg/dL (50-129); LDL HDL Ratio 2.39 RATIO (0.00-3.22); Triglycerides 145 mg/dL (0-150)
[2024-06-08 04:17] LABS: Alanine Aminotransferase 20 U/L (0-33); Albumin Level 3.6 g/dL (3.5-5.2); Alkaline Phosphatase 88 U/L (35-105); Aspartate Amino Transferase 18 U/L (0-32); Blood Urea Nitrogen 17 mg/dL (6-20); Calcium 8.8 mg/dL (8.5-10.5); Carbon Dioxide 25 mmol/L (22-29); Chloride 110 mmol/L (98-107); Creatinine Clr Calc Pharmacy 81.3423; Globulin 2.1 g/dL (1.3-4.6); Glomerular Filtration Rate 65.2 mL/min (90-130); Glucose 84 mg/dL (65-115); Magnesium 1.9 mg/dL (1.7-2.3); Osmolality Calculated 301 mOsm/kg (285-295); Sodium 145 mmol/L (136-145); Total Bilirubin 0.2 mg/dL (0.15-1.2); Total Protein 5.7 g/dL (6.6-8.7)
[2024-06-08 04:30] LABS: Folate Level 12.4 ng/mL (4.8-37.3)
--- NOTE | 2024-06-08 06:00 | USCV_ITS ---
Chester Malorie Age: 53 Gender: F : 1970 Exam Date: 06/08/2024 16:20 Ordering Phys: Chey Spencer MD Technologist: [facility] [place]am [place] [facility] [place]: stroke Risk Factors: Previous Vascular Surgery: Right Brachial BP: / Left Brachial BP: / Right Left Velocity (cm/s) Spectral Plaque Velocity (cm/s) Spectral Plaque Syst/Diast Broadening Syst/Diast Broadening 50.10/ 14.10 Prox CCA 68.60 / 14.70 61.40/ 19.70 Mid CCA 66.90 / 23.50 49.70/ 18.40 Distal CCA 57.10 / 19.70 44.10/ 18.60 Prox ICA 44.00 / 20.90 70.40/ 29.40 Mid ICA 53.10 / 24.50 79.00/ 35.20 Distal ICA 89.80 / 46.30 65.80 ECA 69.80 1.60 ICA/CCA 1.60 Antegrade Vertebral Antegrade 67.70/ 16.30 cm/s 40.80/ 12.70 cm/s Tri Subclavian Tri 81.80 72.20 CONCLUSIONS Right ICA stenosis <50%. Mild atheromatous plaque right carotid bulb/ICA. Left ICA stenosis <50%. Mild atheromatous plaque left carotid bulb/ICA. Normal antegrade Doppler flow noted in the right vertebral artery. Normal antegrade Doppler flow noted in the left vertebral artery. Lio Sheffield MD (Electronically Signed) Final Date: 08 June 2024 17:55 S
[2024-06-08] MEDS: heparin 5,000 unit/mL INJ 1 mL 5000 UNIT SUBCUT ×2 (07:02→19:45)
[2024-06-08] MEDS: pyridoxine 50 mg Tablet 100 MG PO (08:31)
[2024-06-08] MEDS: aspirin 81 mg EC Tablet PO (08:31)
[2024-06-08] MEDS: famotidine 20 mg Tablet PO ×2 (08:31→18:17)
--- NOTE | 2024-06-08 09:30 | MR_ITS ---
WS: [id number] MRI BRAIN WITH AND WITHOUT CONTRAST HISTORY: stroke COMPARISON: CT 06/06/2024. Prior MRI 01/15/2024 TECHNIQUE: Multiplanar imaging performed through the brain with Fortuna Vinice IV. Acute infarct involving the RIGHT basal ganglia. Large portion of the basal ganglia is involved. This is larger than a lacunar infarct. No additional diffusion abnormality. Large area of encephalomalaci a involving the RIGHT frontal lobe with resection of the cavity. This is very similar in appearance t o the prior study of 01/15/2024. There is additional extensive confluent T2 and FLAIR signal hyperinte nsity throughout the periventricular white matter. There are a few scattered susceptibility artifacts predominantly in the RIGHT frontal lobe probably r elated to the prior surgical resection. RIGHT lateral ventricle is mildly dilated due to ex vacuo dilatation related to the resection cavity. Clivus and pituitary gland are normal. Visualized posterior fossa and brainstem are also normal. No enhancement is identified along the resection site or RIGHT frontal lobe. The previously described enhancement on 710 22,024 is resolving this is probably postsurgical. No new enhancing mass. There i s some very mild dural enhancement over the RIGHT frontal lobe which is thin and smooth. Dural venous sinuses are normal. Paranasal sinuses: Well aerated with no significant disease. Mastoid air cells: Normal. Calvarium and scalp: RIGHT frontal craniotomy site. MR/MR head wo/w con [id number] IMPRESSION: 1. Acute infarct involving the RIGHT basal ganglia. No additional diffusion ab normality. 2. Stable postoperative changes involving the RIGHT frontal lobe and craniotom y. There is encephalomalacia and gliosis. No recurrent mass or progression of e nhancement. 3. Extensive confluent T2 and and FLAIR signal hyperintensities. This is proba lorie post radiation related. Similar to the prior study of 01/15/2024.
--- NOTE | 2024-06-08 10:18 | PC.CHAP ---
Pastoral Care Encounter/Spiritual Assessment Type of Contact [] Declined user experience developer visit [] Patient/Family/Request visit [] Outpatient visit [] Follow-up visit [] Physician referral [] Code/Alert [x] Routine visit [] Staff referral [] Actively dying [] Patient sleeping [] Family support [] [x] Out of room [] Palliative care [] [] Receiving care in room [] Pre-surgical visit [] Trauma [] Long length of stay [] ICU visit [] Other: Relational/Emotional Strength [] Patient feels connected with others/family/visitors/staff [] Distress [] Loneliness/isolation [] Abandonment Spirituality of Patient [] Person of Liz [] Attends Hinduism of their Liz [] Believes in Prayer [] Reads Bible or Sikh materials [] There are Spiritual issues to be addressed Medical Support Specialist Interventions [] Prayer [] Active listening [] Non-anxious presence [] Spiritual/emotional support [] Crisis/trauma care [] Spiritual counseling [] Bereavement support [] Provided bereavement packet [] Provided Bible/devotional materials [] Provided toy/stuffed animal, coloring book to patient or family member [] Provided Communion [] Anointing/[place] [] Salvation [] Completed spiritual assessment [] Other: Impact on Illness or Injury [] Angry [] Fearful [] Anxious [] Often cries [] Exhaustion [] Unable to work [] Unable to attend yazidism [] Unable to walk/stand [] Unable to read [] Unable to drive [] Unable to eat/drink [] Unable to sleep [] Unable to be with family [] Patient intubated [] Other: Summary Time spent with patient
[2024-06-08] MEDS: gadobenate dimeglumine 20 mL vial 17 ML IV (10:19)
[2024-06-08] MEDS: HYDROcodone-acetaminophen 7.5-325 mg Tablet 1 TAB PO (11:14)
[2024-06-08] MEDS: cefTRIAXone 1,000 mg SDV 1000 MG IVP (11:31)
--- NOTE | 2024-06-08 15:17 | PM.PN ---
Subjective Subjective: She is feeling better today with symptoms having improved. Vitals/I&O/Wt Last Vital Signs Temp 98.1 F 06/08/24 11:41 Pulse 69 06/08/24 11:41 Resp 17 06/08/24 11:41 BP 98/56 06/08/24 11:41 Pulse Ox 97 06/08/24 11:41 O2 Del Method Room Air 06/08/24 11:41 06/08/24 06/08/24 06/08/24 06:59 14:59 22:59 Intake Total 240 / 960 960 / 960 Balance 240 / 960 960 / 960 Weight last 48 hrs Weight 80.966 kg Weight 80.059 kg Weight 80.059 kg Weight 81.193 kg Physical Exam Narrative: Accompanied by her family, including her on second visit. Const: COMMON NORMALS: patient oriented x3 and alert GENERAL APPEARANCE: cooperative ORIENTATION/CONSCIOUSNESS: Yes awake HENMT: COMMON NORMALS: oropharynx normal Neck/C-Spine: COMMON NORMALS: no JVD Resp: COMMON NORMALS: normal respiratory effort and clear to auscultation bilaterally AUSCULTATION: clear to auscultation bilaterally Cardio: COMMON NORMALS: no JVD, regular rhythm, S1 normal heart sound present, S2 normal heart sound present and No murmurs present (Cardio) RHYTHM: regular rhythm HEART SOUNDS: S1 normal heart sound present and S2 normal heart sound present GI: COMMON NORMALS: Normal to inspection, nondistended, normoactive bowel sounds present, Soft to palpation and non-tender PALPATION: Yes Soft to palpation Extremity: COMMON NORMALS: no joint enlargement and no pedal edema OTHER: She is awake and alert, following directions. Minimal residual facial droop. No difficulty with horizontal tracking. VF full to conf, no ext. No difficulty with FNF although slightly slowed. Mild LLE drift. no drift other ext. Sensory exam symmetrical. No sensory extinction. Neuro: COMMON NORMALS: patient oriented x3 and moves all extremities SENSORIUM/ORIENTATION: Yes alert Skin: COMMON NORMALS: no rashes or lesions noted GENERAL SKIN EXAM: no rashes or lesions noted Data 06/08/24 03:05 06/08/24 03:05 Micro: Microbiology 06/07/24 14:32 Blood Culture - Preliminary Blood NEGATIVE TO DATE 06/07/24 14:30 Blood Culture - Preliminary Blood NEGATIVE TO DATE 06/07/24 10:15 Urine Culture - Preliminary Urine,Clean Catch Gram Negative Rods A&P Assessment and plan (1) Stroke: Noted acute right basilar CVA. Reviewed MRI. Reviewed vitals, CBC, CMP, cholesterol, echocardiogram, noted pending carotid duplex. Requested to replace telemetry. She denies history of atrial fibrillation. No hyperglycemia, no history of diabetes. Hypercholesterolemia. History of Cranial radiation. Follow-up for possible carotid duplex with concern for possible carotid disease. Discussed with her continuation of aspirin, cholesterol medication. PT, OT assessment. Follow-up with neurology after discharge. Discussed with nursing, telephonic nurse case manager earlier. CT head right frontal postop cavity with encephalomalacia and gliosis. Chronic microvascular disease with old lacunar infarcts. Follow-up echocardiogram results. Start aspirin 81 mg daily, atorvastatin 40 mg daily Follow PT/OT. Advance diet as per speech evaluation. Goal blood pressure less than 140/90 mmHg with mean over 65 now. Will uptitrate to start medications as per blood pressures. MRI of the brain to assess for cancer recurrence as a cause of underlying symptoms-this is unfortunately not available until Saturday (today is Saturday) (2) Breast cancer in female: Resume her breast cancer medications. Monitor for risk of adverse effects including heart failure. (3) Neoplasm of brain causing mass effect on adjacent structures: (4) Acute left-sided weakness: (5) UTI (urinary tract infection): Continue treatment of urinary tract infection. Reviewed urine culture, gram-negative rods growing, follow-up final culture results. Continue ceftriaxone. Monitor for risk of drug reaction, SJS, cytopenias. Plan DVT prophylaxis: Heparin 5000 subcu every 12 hours CODE STATUS: full code Dysphagia level 7 diet Famotidine for PUD prophylaxis Attestations Medical Necessity Statement*: Continue hospitalization for assessment and management after new stroke, urinary tract infection in a lady with immune suppression with metastatic breast cancer. and High MDM includes amount and/or complexity of data reviewed/ordered [ resulted lab(s)/test(s), ordered lab(s)/test(s) and other healthcare professional discussion] and described risk of complication, morbidity or mortality of management as documented Diagnoses Stroke I63.9 Breast cancer in female C50.919 Neoplasm of brain causing mass effect on adjacent structures D49.6 Acute left-sided weakness R53.1 UTI (urinary tract infection) N39.0
--- NOTE | 2024-06-08 18:27 | PC.NURSE ---
Notified Dr. Arriola to make sure patient could take her Lapatinib 750 mg once daily at bedtime. Pharmacy not available to label medication tonight. Will send to Pharmacy in am.
[2024-06-08] MEDS: atorvastatin 40 mg Tablet PO (20:46)
--- NOTE | 2024-06-08 21:00 | PC.NURSE ---
Addendum entered by Ketty Malave RN 06/08/24 21:29: 5 mg Ambien ordered. Original Note: Patient is asking for Benadryl. She says she takes it every night at home to help her sleep but that she doesn't know the dose. Dr. Anne notified.
[2024-06-08] MEDS: zolpidem 5 mg Tablet PO (21:42)
[2024-06-09] VITALS: BP 95/60; PULSE 64; RESP 16; TEMP 36.5; O2SAT 99
[2024-06-09 04:00] VITALS: BP 122/67; PULSE 65; RESP 16; TEMP 36.6; O2SAT 99
[2024-06-09 06:00] VITALS: PULSE 61
--- NOTE | 2024-06-09 06:39 | PC.NURSE ---
Azar called and notified that we only have one of patient's chemo medications and do not have the other one. Azar states he will be looking for it and bringing it in today.
[2024-06-09 08:29] VITALS: BP 127/68; PULSE 60; RESP 18; TEMP 36.3; O2SAT 99
[2024-06-09] MEDS: HYDROcodone-acetaminophen 7.5-325 mg Tablet 1 TAB PO (09:04)
[2024-06-09] MEDS: heparin 5,000 unit/mL INJ 1 mL 5000 UNIT SUBCUT (09:04)
[2024-06-09] MEDS: pyridoxine 50 mg Tablet 100 MG PO (09:04)
[2024-06-09] MEDS: famotidine 20 mg Tablet PO (09:05)
[2024-06-09] MEDS: LAPATINIB 250 MG 750 EACH PO (09:05)
[2024-06-09] MEDS: aspirin 81 mg EC Tablet PO (09:05)
--- NOTE | 2024-06-09 10:21 | PC.CHAP ---
Pastoral Care Encounter/Spiritual Assessment Type of Contact [] Declined database administrator visit [] Patient/Family/Request visit [] Outpatient visit [] Follow-up visit [] Physician referral [] Code/Alert [x] Routine visit [] Staff referral [] Actively dying [] Patient sleeping [] Family support [] [] Out of room [] Palliative care [] [] Receiving care in room [] Pre-surgical visit [] Trauma [] Long length of stay [] ICU visit [] Other: Relational/Emotional Strength [x] Patient feels connected with others/family/visitors/staff [] Distress [] Loneliness/isolation [] Abandonment Spirituality of Patient [x] Person of Liz [] Attends Spiritism of their Liz [x] Believes in Prayer [] Reads Bible or Pentecostalism materials [] There are Spiritual issues to be addressed Mechanical Specialist Interventions [x] Prayer [x] Active listening [] Non-anxious presence [x] Spiritual/emotional support [] Crisis/trauma care [] Spiritual counseling [] Bereavement support [] Provided bereavement packet [] Provided Bible/devotional materials [] Provided toy/stuffed animal, coloring book to patient or family member [] Provided Communion [] Anointing/[place] [] Salvation [x] Completed spiritual assessment [] Other: Impact on Illness or Injury [] Angry [] Fearful [] Anxious [] Often cries [] Exhaustion [] Unable to work [] Unable to attend denominational [] Unable to walk/stand [] Unable to read [] Unable to drive [] Unable to eat/drink [] Unable to sleep [] Unable to be with family [] Patient intubated [] Other: Summary Time spent with patient 5 min
[2024-06-09] MEDS: cefTRIAXone 1,000 mg SDV 1000 MG IVP (11:39)
--- NOTE | 2024-06-09 11:59 | PM.DCS ---
Discharge Providers Date of Admission: 06/06/24 22:30 Date of Discharge: June 09, 2024 Attending Provider at Admission: Chey Spencer MD Attending Provider at Discharge: Los Arriola Primary Care Provider: Vicenta Orellana DO Diagnoses at Discharge Discharge Diagnosis (1) Stroke: Status: Acute (2) Breast cancer in female: Status: Acute (3) Neoplasm of brain causing mass effect on adjacent structures: Status: Acute (4) Acute left-sided weakness: Status: Acute (5) UTI (urinary tract infection): Status: Acute Reason for Visit Reason for Visit: left side suddenly weak Brief History: Malorie Briggs is a 53 year old female with a history of stage IV metastatic breast cancer with mets into the brain. She is status post resection of the brain lesion in 2019. She is currently on treatment with lapatinib for the same. She presents to the emergency room today due to chief complaints of left-sided weakness in the upper and lower extremity along with left-sided facial weakness. Her symptoms started shortly after waking up on Saturday morning, it is over 24 hours at this point. NH stroke scale of 2 upon presentation. She had reported in the ED that she has chronic left-sided weakness since her surgery in 2019 however currently states that the left-sided extremity weakness is new.Other pertinent history is that of MRSA bacteremia related to a port infection in the past. Her most recent port was placed in December 2023. Hospital Course Hospital Course She was started on treatment for urinary tract infection with ceftriaxone, urine culture eventually grew Enterobacter resistant to nitrofurantoin. MRI of the brain was obtained which showed an acute infarct of the right basal ganglia as well as stable postoperative changes involving right frontal lobe and craniotomy with encephalomalacia and gliosis. Without evidence of recurrent mass. Incidentally noted extensive confluent T2 and FLAIR signal hyperintensities. Suspected postradiation changes similar to prior. She was continued on aspirin and atorvastatin. Carotid Doppler was obtained and did not show significant stenosis. Echocardiogram showed normal ejection fraction, mild MVR, mild TVR, mild PVR. Her symptoms had significantly improved. Minimal residual drift in left lower extremity, resolved in left upper extremity, improved facial droop. She was assessed by speech therapy and did well with easy to chew diet. She was assessed by PT and OT. 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 Physical Exam Const: COMMON NORMALS: patient oriented x3 and alert GENERAL APPEARANCE: cooperative ORIENTATION/CONSCIOUSNESS: Yes awake HENMT: COMMON NORMALS: oropharynx normal Neck/C-Spine: COMMON NORMALS: no JVD Resp: COMMON NORMALS: normal respiratory effort and clear to auscultation bilaterally AUSCULTATION: clear to auscultation bilaterally Cardio: COMMON NORMALS: no JVD, regular rhythm, S1 normal heart sound present, S2 normal heart sound present and No murmurs present (Cardio) RHYTHM: regular rhythm HEART SOUNDS: S1 normal heart sound present and S2 normal heart sound present GI: COMMON NORMALS: Normal to inspection, nondistended, normoactive bowel sounds present, Soft to palpation and non-tender PALPATION: Yes Soft to palpation Extremity: COMMON NORMALS: no joint enlargement and no pedal edema OTHER: She is awake and alert, following directions. Minimal residual facial droop. No difficulty with horizontal tracking. VF full to conf, no ext. No difficulty with FNF although slightly slowed. Mild LLE drift. no drift other ext. Sensory exam symmetrical. No sensory extinction. Neuro: COMMON NORMALS: patient oriented x3 and moves all extremities SENSORIUM/ORIENTATION: Yes alert Skin: COMMON NORMALS: no rashes or lesions noted GENERAL SKIN EXAM: no rashes or lesions noted Discharge Data Studies Completed and Pending Completed Studies During Hospitalization Category Date Time Status CT head thrombolytic [id number] Stat Cat Scan 06/06/24 19:09 Completed MR head wo/w con [id number] Routine MRI 06/08/24 09:30 Completed CV carotid duplex BI* [id number] Routine Ultrasound 06/08/24 06:00 Completed CV. echo complete* [id number] Routine Ultrasound 06/07/24 00:55 Completed Pending at discharge Category Date Time Status Blood Culture Stat Lab 06/07/24 14:30 Results MAG [Magnesium] AM LABS Lab 06/10/24 04:00 Ordered Radiology Impressions Head CT 06/06/24 19:09 IMPRESSION: 1. Right frontal postoperative cavity with encephalomalacia and gliosis. 2. Chronic microvascular disease with old lacunar infarcts. 3. No acute intracranial lesion or injury ASSESSMENT: ASPECTS ([place] Stroke Program Early CT Score) is 10. Head MRI 06/08/24 09:30 IMPRESSION: 1. Acute infarct involving the RIGHT basal ganglia. No additional diffusion abnormality. 2. Stable postoperative changes involving the RIGHT frontal lobe and craniotomy. There is encephalomalacia and gliosis. No recurrent mass or progression of enhancement. 3. Extensive confluent T2 and and FLAIR signal hyperintensities. This is probably post radiation related. Similar to the prior study of 01/15/2024. Laboratory Results WBC 6.90 10^3/uL (3.29-11.43) 06/08/24 03:05 RBC 3.81 10^6/uL (3.85-5.65) L 06/08/24 03:05 Hgb 11.20 g/dL (11.27-16.99) L 06/08/24 03:05 Hct 36.0 % (36-47) 06/08/24 03:05 MCV 94.5 fl (85-98) 06/08/24 03:05 MCH 29.4 pg (27-33) 06/08/24 03:05 MCHC 31.1 g/dL (30-55) 06/08/24 03:05 RDW 13.2 % (12.1-15.1) 06/08/24 03:05 Plt Count 323 10^3/cmm (157-399) 06/08/24 03:05 MPV 9.7 fL (7.4-10.4) 06/08/24 03:05 Neut % (Auto) 54.0 % 06/08/24 03:05 Lymph % (Auto) 31.9 % 06/08/24 03:05 [place] % (Auto) 9.3 % 06/08/24 03:05 Eos % (Auto) 3.8 % 06/08/24 03:05 Baso % (Auto) 0.7 % 06/08/24 03:05 Neut # (Auto) 3.73 10^3/uL (1.8-7.7) 06/08/24 03:05 Lymph # (Auto) 2.2 10^3/uL (0.8-4.8) 06/08/24 03:05 [place] # (Auto) 0.6 10^3/uL (0.2-0.9) 06/08/24 03:05 Eos # (Auto) 0.3 10^3/uL (0.0-0.8) 06/08/24 03:05 Baso # (Auto) 0.1 10^3/uL (0.0-0.1) 06/08/24 03:05 Nucleated RBC % (auto) 0 % 06/08/24 03:05 Nucleated RBCs # 0.0 /100WBC 06/08/24 03:05 PT 12.60 SECONDS (12.1-14.9) 06/06/24 19:35 INR 0.92 (0.8-1.2) 06/06/24 19:35 APTT 30.0 SECONDS (23.9-36.7) 06/06/24 19:35 Sodium 145 mmol/L (136-145) 06/08/24 03:05 Potassium 4.0 mmol/L (3.5-5.1) 06/08/24 03:05 Chloride 110 mmol/L (98-107) H 06/08/24 03:05 Carbon Dioxide 25 mmol/L (22-29) 06/08/24 03:05 Anion Gap 14.0 (5-19) 06/08/24 03:05 BUN 17 mg/dL (6-20) 06/08/24 03:05 Creatinine 0.9 mg/dL (0.5-0.9) 06/08/24 03:05 GFR Calculation 65.2 mL/min (90-130) L 06/08/24 03:05 Glucose 84 mg/dL (65-115) 06/08/24 03:05 POC Glucose 90 mg/dL (70-110) 06/07/24 00:30 Estimat Average Glucose 91 06/07/24 03:06 Hemoglobin A1c 4.8 % (4.0-6.0) 06/07/24 03:06 Calculated Osmolality 301 mOsm/kg (285-295) H 06/08/24 03:05 Calcium 8.8 mg/dL (8.5-10.5) 06/08/24 03:05 Magnesium 2.0 mg/dL (1.7-2.3) 06/09/24 05:25 Iron 26 ug/dL (37-145) L 06/07/24 03:06 TIBC 262 mcg/dl 06/07/24 03:06 % Saturation 9.9 % (20-50) L 06/07/24 03:06 Unsat Iron Binding 236 ug/dL (112-347) 06/07/24 03:06 Total Bilirubin 0.2 mg/dL (0.15-1.2) 06/08/24 03:05 AST 18 U/L (0-32) 06/08/24 03:05 ALT 20 U/L (0-33) 06/08/24 03:05 Alkaline Phosphatase 88 U/L (35-105) 06/08/24 03:05 Total Protein 5.7 g/dL (6.6-8.7) L 06/08/24 03:05 Albumin 3.6 g/dL (3.5-5.2) 06/08/24 03:05 Globulin 2.1 g/dL (1.3-4.6) 06/08/24 03:05 Triglycerides 145 mg/dL (0-150) 06/08/24 03:05 Cholesterol 202 mg/dL (0-200) H 06/08/24 03:05 LDL Cholesterol, Calc 122 mg/dL (50-129) 06/08/24 03:05 HDL Cholesterol 51 mg/dL (60-100) L 06/08/24 03:05 LDL/HDL Ratio 2.39 RATIO (0.00-3.22) 06/08/24 03:05 Cholesterol/HDL Ratio 3.96 mg/dL (0.0-4.40) 06/08/24 03:05 Vitamin B12 692 pg/mL (232-1245) 06/07/24 03:06 Folate 12.4 ng/mL (4.8-37.3) 06/08/24 03:05 Procalcitonin 0.07 ng/mL (0-0.5) 06/07/24 03:06 TSH 2.58 uIU/mL (0.27-4.20) 06/07/24 03:06 Urine Color Yellow (Yellow) 06/07/24 10:15 Urine Appearance Clear (CLEAR) 06/07/24 10:15 Urine pH 6.5 (5-7) 06/07/24 10:15 Ur Specific [place] 1.027 (1.005-1.030) 06/07/24 10:15 Urine Protein Negative (Negative) 06/07/24 10:15 Urine Glucose (UA) Negative (Normal) 06/07/24 10:15 Urine Ketones Negative (Negative) 06/07/24 10:15 Urine Blood Negative (Negative) 06/07/24 10:15 Urine Nitrate Positive (Negative) A 06/07/24 10:15 Urine Bilirubin Negative (Negative) 06/07/24 10:15 Urine Urobilinogen 1.0 mg/dL (Negative) 06/07/24 10:15 Ur Leukocyte Esterase 1+ (Negative) A 06/07/24 10:15 Urine RBC 0-2 /hpf (0-2) 06/07/24 10:15 Urine WBC 51-100 /hpf (0-5) H 06/07/24 10:15 Ur Squamous Epith Cells 0-5 /hpf (0-5) 06/07/24 10:15 Amorphous Sediment Not Reportable 06/07/24 10:15 Urine Bacteria 4+ /hpf (NONE) H 06/07/24 10:15 Hyaline Casts 0.40 /lpf 06/07/24 10:15 Urine Opiates Screen Negative ng/mL (Negative) 06/07/24 10:15 Ur Barbiturates Screen Negative ng/mL (Negative) 06/07/24 10:15 Ur Phencyclidine Scrn Negative ng/mL (Negative) 06/07/24 10:15 Ur Amphetamines Screen Negative ng/mL (Negative) 06/07/24 10:15 U Benzodiazepines Scrn Negative ng/mL (Negative) 06/07/24 10:15 Urine Cocaine Screen Negative ng/mL (Negative) 06/07/24 10:15 U Marijuana (THC) Screen Negative ng/mL (Negative) 06/07/24 10:15 Vitals Last Vital Signs Temp 97.3 F L 06/09/24 08:29 Pulse 60 06/09/24 08:29 Resp 18 06/09/24 08:29 BP 127/68 06/09/24 08:29 Pulse Ox 99 06/09/24 08:29 O2 Del Method Room Air 06/09/24 08:29 Discharge Plan Discharge Patient Disposition: Home Condition: Fair Prescriptions: New atorvastatin 40 mg Tablet 40 mg PO BEDTIME Qty: 90 0RF aspirin 81 mg Tablet,Delayed Release (Dr/Ec) 81 mg PO DAILY Qty: 90 0RF cefdinir 300 mg capsule 300 mg PO BID 10 Days Qty: 20 0RF Continued pyridoxine (vitamin B6) [Vitamin B-6] 100 mg Tablet 100 mg PO DAILY letrozole 2.5 mg tablet 2.5 mg PO DAILY diphenoxylate-atropine 2.5-0.025 mg tablet 1 tab PO QID lapatinib 250 mg Tablet 750 mg PO DAILY docusate sodium [Colace] 100 mg capsule 100 mg PO BID Qty: 10 0RF Calcium Adult 300 mg (750 mg) Tablet,Chewable 300 mg PO DAILY lapatinib [Tykerb] 250 mg Tablet 750 mg PO DAILY Rx Instructions: must administer on empty stomach, at least 1 hour before or 1 hour after a meal/food alpha lipoic acid 100 mg Capsule 100 mg PO DAILY cholecalciferol (vitamin D3) [Vitamin D3] 50 mcg (2,000 unit) Tablet 50 mcg PO DAILY Multi For Her 18 mg iron-600 mcg-40 mcg Capsule 1 tab-cap PO QAM diphenhydramine HCl [Benadryl] 25 mg Capsule See Rx Instructions .ROUTE .COMPLEX Rx Instructions: patient states she takes this every night for sleep, but does not know the dose Discharge Orders: Discharge Order (Routine); Ordered 06/09/24 Ordered By: Los Arriola Other Ambulatory Orders: Physical Therapy Eval and Treat Outpatient (Order) Timeframe: 3 Days Facility: [facility] - Location: Physical Therapy [place] Ordered By: Los Arriola MCT/Event Monitor 21 Days (Routine) Timeframe: 1 Day Facility: [facility] - Location: Radiology Ordered By: Los Arriola Referrals: NEUROSCIENCE PROVIDERS [Provider Group] - 7-10 days ([facility] We have notified your physician's clinic of the need for a follow-up appointment to be scheduled. If you have not heard from them within the next 2 business days, please call them directly. ) Vicenta Orellana DO [Primary Care Provider] - Francesco Valencia [Occupational Therapist] - 07/03/24 (labs @1030 appointment @1115) Discharge Diet: As Directed and Cardiac Discharge Activity: Increase activity as tolerated and As per PT/OT instructions Patient Instructions: Ischemic Stroke (GEN) Activity Restrictions/Additional Instructions: Please follow-up with neurology and with your primary provider regarding right basal ganglia stroke. Continue aspirin, cholesterol medication. Notify your primary provider in case of any muscle pain or weakness that rarely can be observed with statin medication. Continue diet as per speech therapy with easy to chew foods with heart healthy diet. Follow-up with your primary provider for continued optimization of cardiovascular risk factors. Complete antibiotic treatment for urinary tract infection and follow-up with your prime provider for reassessment. Urine culture grew Enterobacter resistant to nitrofurantoin. You received magnesium supplementation in the hospital due to initially low magnesium, please have your primary provider follow-up your magnesium levels. Discharge Attestations Time Spent in Discharge Care*: greater than 30 min Quality Metrics Clinical Quality Measures [ Cerebrovascular Accident { Contraindication to Antithrombotic: None; antithrombotic prescribed; Contraindication to Anticoagulation: Overlap treatment not indicated; Contraindication to Statin: None; Statin prescribed;}] Coding Level of Care Code 30832 Total time (in minutes) for Discharge: 40 Diagnoses Stroke I63.9 Breast cancer in female C50.919 Neoplasm of brain causing mass effect on adjacent structures D49.6 Acute left-sided weakness R53.1 UTI (urinary tract infection) N39.0
[2024-06-09 12:17] VITALS: BP 100/52; PULSE 75; RESP 18; TEMP 36.4; O2SAT 97
[2024-06-09 13:41] VITALS: BP 100/52; PULSE 75; O2SAT 97
== END 2024-06-09 13:25 | disposition home or self-care (01) ==
LOC: ER 19:08 → MEDSURG 22:31
PROVIDERS: Student in an Organized Health Care Education/Training Program; Admitting Provider Student in an Organized Health Care Education/Training Program; Emergency Provider Emergency Medicine; PCP Internal Medicine; Visit Provider Internal Medicine
DX: I63.9 Cerebral infarction, unspecified (principal); R29.702 NIHSS score 2; C50.919 Malignant neoplasm of unspecified site of unspecified female breast; C79.31 Secondary malignant neoplasm of brain; R53.1 Weakness; N39.0 Urinary tract infection, site not specified
CPT/HCPCS: 36415; 36416; 70450; 70553; 80053; 80061; 80306; 81001; 82607; 82746; 82962; 83036; 83540; 83550; 83735; 84145; 84443; 85025; 85610; 85730; 87040; 87077; 87086; 87186; 92523; 92610; 93005; 93306; 93880; 96372; 96374; 96375; 97116; 97161; 97165; 97530; 99285; A9577; G0378; J0696; J1644

== ENCOUNTER 2024-06-17 06:00 | Outpatient (RCR) | payer BC, SELFPAY | END 2024-07-07 23:59 | disposition home or self-care (01) | LOC: APT 06:00 | PROVIDERS: PCP Internal Medicine; Visit Provider Internal Medicine | DX: I63.9 Cerebral infarction, unspecified (principal) | CPT/HCPCS: 97110; 97112; 97161; 97530 ==

== ENCOUNTER 2024-07-07 15:03 | Oncology outpatient (recurring) (ONCR) | payer BC, SELFPAY ==
[2024-06-19] MEDS: sodium chloride 0.9% 1,000 ML 999 ML IV (09:30)
[2024-06-19 11:00] VITALS: BP 96/49; PULSE 70; RESP 17; TEMP 36.1; O2SAT 99
[2024-06-26] MEDS: sodium chloride 0.9% 1,000 ML 999 ML IV (12:25)
[2024-06-26 13:19] VITALS: BP 135/59; PULSE 60; RESP 16; TEMP 36; O2SAT 99
[2024-07-02] MEDS: sodium chloride 0.9% 1,000 ML 999 ML IV (15:22)
[2024-07-02 16:35] VITALS: BP 118/74; PULSE 74; RESP 17; TEMP 35.9; O2SAT 99
[2024-07-07 15:10] VITALS: BP 116/65; PULSE 81; RESP 15; TEMP 37.1; O2SAT 96
[2024-07-07] MEDS: sodium chloride 0.9% 1,000 ML 999 ML IV (15:33)
== END 2024-07-07 23:59 | disposition home or self-care (01) ==
PROVIDERS: PCP Internal Medicine; Visit Provider Internal Medicine
DX: Z53.9 Procedure and treatment not carried out, unspecified reason (principal); C50.912 Malignant neoplasm of unspecified site of left female breast; E86.0 Dehydration; Z79.899 Other long term (current) drug therapy
CPT/HCPCS: 96360; J7030

== ENCOUNTER 2024-08-06 14:45 | Oncology outpatient (recurring) (ONCR) | payer BC, SELFPAY ==
[2024-07-09] MEDS: sodium chloride 0.9% 1,000 ML 999 ML IV (15:06)
[2024-07-13] MEDS: sodium chloride 0.9% 1,000 ML 999 ML IV (15:18)
[2024-07-13 16:06] VITALS: BP 113/64; PULSE 65; RESP 16; O2SAT 97
[2024-07-16 15:35] VITALS: BP 97/53; PULSE 76; RESP 16; TEMP 36.2; O2SAT 98
[2024-07-16] MEDS: sodium chloride 0.9% 1,000 ML 999 ML IV (15:43)
[2024-07-16 16:52] VITALS: BP 128/64; PULSE 67; RESP 17; TEMP 36.6; O2SAT 98
[2024-07-20 14:54] VITALS: BP 89/51; PULSE 78; RESP 16; TEMP 36.5; O2SAT 92
[2024-07-20] MEDS: sodium chloride 0.9% 1,000 ML 999 ML IV (15:02)
[2024-07-20 16:07] VITALS: BP 93/58; PULSE 75; RESP 16; TEMP 36.4; O2SAT 99
[2024-07-23] MEDS: sodium chloride 0.9% 1,000 ML 999 ML IV (15:37)
[2024-07-23 17:02] VITALS: BP 128/84; PULSE 84; RESP 18; TEMP 36.8; O2SAT 98
[2024-07-27] MEDS: sodium chloride 0.9% 1,000 ML 999 ML IV (15:40)
[2024-07-27 16:00] VITALS: PULSE 77; RESP 16; TEMP 36.6; O2SAT 97
[2024-07-30] MEDS: sodium chloride 0.9% 1,000 ML 999 ML IV (15:39)
[2024-08-03] MEDS: sodium chloride 0.9% 1,000 ML 999 ML IV (15:24)
[2024-08-03 16:32] VITALS: BP 102/55; PULSE 74; RESP 16; TEMP 36.4; O2SAT 100
[2024-08-06] MEDS: sodium chloride 0.9% 1,000 ML 999 ML IV (15:05)
== END 2024-08-07 23:59 | disposition home or self-care (01) ==
PROVIDERS: PCP Internal Medicine; Visit Provider Internal Medicine
DX: C50.912 Malignant neoplasm of unspecified site of left female breast; E86.0 Dehydration; Z79.899 Other long term (current) drug therapy; Z53.9 Procedure and treatment not carried out, unspecified reason
CPT/HCPCS: 96360; J7030

== ENCOUNTER 2024-08-12 06:00 | Outpatient (RCR) | payer BC, SELFPAY | END 2024-09-04 23:59 | disposition home or self-care (01) | LOC: APT 06:00 | PROVIDERS: PCP Surgery Vascular Surgery; Visit Provider Specialist | DX: I63.9 Cerebral infarction, unspecified (principal); R53.1 Weakness | CPT/HCPCS: 97110; 97116; 97162; 97530 ==

== ENCOUNTER 2024-08-13 10:57 | Outpatient (CLI) | payer BC, SELFPAY ==
--- NOTE | 2024-08-13 11:04 | CT_ITS ---
WS: [id number] CT CHEST, ABDOMEN AND PELVIS WITH CONTRAST HISTORY: BREAST CANCER RESTAGING TECHNIQUE: Contiguous 5 mm axial imaging performed through the chest, abdomen and pelvis with IV contrast, oral contrast has been provided. Coronal and sagittal reformats chest. Coronal and sagittal reformats through the abdomen and pelvis. All CT scans at [facility] use at least one of these dose optimization techniques: automated exposure control; mA and/or kV adjustment per patient size (includes targeted exams where dose is matched to clinical indication); or iterative reconstruction. CONTRAST: Omnipaque 350; 100 mL IV. DLP: 1028.20 mGy.cm COMPARISON: 05/18/2024, 02/24/[address]: Reidentified is an ovoid irregular pulmonary nodule in the RIGHT lower lobe which has been previously described measuring 1.4 x 0.8 cm. Not significantly changed in size since the prior study. There are a few additional very tiny micronodules and scattered areas of groundglass attenuation which are also stable. Bilateral breast implants. Heart size is normal. No mediastinal or hilar adenopathy. Normal size aorta and pulmonary artery. Small hiatal hernia. Abdomen CT: Liver and spleen are normal size. No metastatic lesions in the liver. Slightly contracted gallbladder with no adjacent inflammation. Normal adrenal glands. Normal pancreas and kidneys. No significant atherosclerotic disease within the aorta. Normal stomach. No small bowel obstruction or colon obstruction. Previously described stricture in the hepatic flexure is no longer identified. Resolved liquid feces. Normal appendix. No ascites or adenopathy. Pelvic CT: No free fluid or adenopathy. Uterus and ovaries are normal by CT. No destructive bone lesions. CT/CT chest abdpel w/*[id number] IMPRESSION: 1. No interval change ovoid RIGHT lower lobe pulmonary nodule measuring 1.4 x 0.8 cm. No interval change in the scattered groundglass opacifications. Conside r follow-up chest CT in 6 months to document continued stability. 2. No lymphadenopathy within the chest, abdomen or pelvis. 3. No ascites. 4. No metastatic disease to the liver or adrenal glands. 5. No residual hepatic flexure stricture.
[2024-08-13] MEDS: iohexol 350 mg/mL 500 mL Btl (per mL) PO (11:20)
[2024-08-13] MEDS: iohexol 350 mg/mL 500 mL Btl (per mL) IV (13:12)
== END 2024-08-13 10:58 | disposition home or self-care (01) ==
PROVIDERS: Visit Provider Internal Medicine
DX: C50.912 Malignant neoplasm of unspecified site of left female breast (principal); C78.01 Secondary malignant neoplasm of right lung; C79.31 Secondary malignant neoplasm of brain; G43.C0 Periodic headache syndromes in child or adult, not intractable; R11.2 Nausea with vomiting, unspecified; R19.7 Diarrhea, unspecified; E86.0 Dehydration; M62.81 Muscle weakness (generalized); R53.0 Neoplastic (malignant) related fatigue; G89.3 Neoplasm related pain (acute) (chronic); I67.89 Other cerebrovascular disease; R91.1 Solitary pulmonary nodule; R91.8 Other nonspecific abnormal finding of lung field; Z98.82 Breast implant status; K44.9 Diaphragmatic hernia without obstruction or gangrene
CPT/HCPCS: 71260; 74177

== ENCOUNTER 2024-09-03 15:06 | Oncology outpatient (recurring) (ONCR) | payer BC, SELFPAY ==
[2024-08-10] MEDS: sodium chloride 0.9% 1,000 ML 999 ML IV (15:46)
[2024-08-10 16:52] VITALS: BP 107/71; PULSE 83; RESP 16; TEMP 36.6; O2SAT 98
[2024-08-13] MEDS: alteplase 1 mg/mL SDV 2 mL 2 MG INTRACATH (12:15)
[2024-08-13] MEDS: sodium chloride 0.9% 1,000 ML 999 ML IV (13:56)
[2024-08-17] MEDS: sodium chloride 0.9% 1,000 ML 999 ML IV (15:15)
[2024-08-17 15:20] VITALS: BP 101/63; PULSE 73; RESP 16; TEMP 36.1; O2SAT 97
[2024-08-17 16:24] VITALS: BP 109/60; PULSE 64; RESP 16; TEMP 35.9; O2SAT 98
--- NOTE | 2024-08-18 14:00 | MR_ITS ---
WS: [id number] MRA ANGIOGRAPHY [place] HISTORY: I63.9 - Cerebral infarction, unspecified COMPARISON: None available. TECHNIQUE: 3-D MR angiography is performed of the [place]. All images are reviewed including source images. Distal vertebral and basilar arteries are intact with no significant stenosis or plaque. Posterior cerebral arteries are normal course and caliber. Posterior communicating arteries are both patent. Intracranial portion of the internal carotid arteries are normal course and caliber. No significant atherosclerosis, stenosis or aneurysm identified. Middle and anterior cerebral arteries are both patent with no significant disease. Anterior communicating artery is also normal. Large area of encephalomalacia and gliosis in the RIGHT frontal lobe. Remote infarct in the RIGHT basal ganglia. Ventriculomegaly. MR/MR angio head wo con [id number] IMPRESSION: Normal MRA [place]. No aneurysms or occlusions within the [place].
[2024-08-20 15:41] VITALS: BP 107/63; PULSE 64; RESP 16; TEMP 36.3; O2SAT 97
[2024-08-20] MEDS: sodium chloride 0.9% 1,000 ML 999 ML IV (15:53)
[2024-08-24 15:15] VITALS: BP 98/55; PULSE 80; RESP 16; TEMP 35.9; O2SAT 97
[2024-08-24] MEDS: sodium chloride 0.9% 1,000 ML 999 ML IV (15:20)
[2024-08-24 16:34] VITALS: BP 99/63; PULSE 68; RESP 16; TEMP 36.2; O2SAT 99
[2024-08-27] MEDS: sodium chloride 0.9% 1,000 ML 999 ML IV (15:28)
[2024-08-27 16:43] VITALS: BP 109/64; PULSE 74; RESP 18; TEMP 36.3; O2SAT 100
[2024-08-31] MEDS: sodium chloride 0.9% 1,000 ML 999 ML IV (15:31)
[2024-08-31 15:35] VITALS: BP 117/68; PULSE 74; RESP 18; TEMP 36.6; O2SAT 95
[2024-08-31 16:40] VITALS: BP 117/84; PULSE 72; RESP 18; TEMP 36.4; O2SAT 97
[2024-09-03] MEDS: sodium chloride 0.9% 1,000 ML 999 ML IV (16:04)
[2024-09-03 17:27] VITALS: BP 114/52; PULSE 62; RESP 16; TEMP 36; O2SAT 100
== END 2024-09-04 23:59 | disposition home or self-care (01) ==
PROVIDERS: PCP Surgery Vascular Surgery; Visit Provider Specialist
DX: C50.912 Malignant neoplasm of unspecified site of left female breast (principal); E86.0 Dehydration; Z79.899 Other long term (current) drug therapy
CPT/HCPCS: 36593; 70544; 96360; J2997; J7030

== ENCOUNTER 2024-09-05 06:30 | Outpatient (RCR) | payer BC, SELFPAY | END 2024-10-05 23:59 | disposition home or self-care (01) | LOC: APT 06:30 | PROVIDERS: PCP Surgery Vascular Surgery; Visit Provider Specialist | DX: I63.9 Cerebral infarction, unspecified (principal); R26.89 Other abnormalities of gait and mobility | CPT/HCPCS: 97110; 97112; 97530 ==

== ENCOUNTER 2024-10-05 15:01 | Oncology outpatient (recurring) (ONCR) | payer BC, SELFPAY ==
[2024-09-07] MEDS: sodium chloride 0.9% 1,000 ML 999 ML IV (15:12)
[2024-09-07 16:25] VITALS: BP 120/79; PULSE 75; RESP 16; TEMP 36.4; O2SAT 97
[2024-09-10] MEDS: sodium chloride 0.9% 1,000 ML 999 ML IV (15:25)
[2024-09-10 16:55] VITALS: TEMP 36.6
--- NOTE | 2024-09-11 11:19 | MR_ITS ---
WS: [id number] MRI HEAD WITH CONTRAST TECHNIQUE: Sagittal T1, T2 axial, T2 axial FLAIR, axial susceptibility weighted imaging, axial diffusion weighted images, and coronal T2 images were obtained. Pre and post-T1 axial and post T1 coronal images. ADC and FSPGR images. CLINICAL INFORMATION: BREAST CANCER WITH BRAIN METS, RESTAGING COMPARISON: MRI 06/08/2024 FINDINGS: No evidence of enhancing intracranial metastatic disease. Stable RIGHT frontal craniotomy with resection cavity. Associated encephalomalacia and gliosis. RIGHT basal ganglia infarct has undergone expected evolution compared to previous. Previously described enhancement about the third ventricle is unchanged since 01/15/2024 with small area of associated encephalomalacia along the LEFT thalamus. This was previously discussed on 01/15/2024 Stable confluent periventricular T2 signal abnormality likely due to radiation therapy. A few scattered foci of hemosiderin about the resection cavity is similar in appearance. No restricted diffusion to suggest acute ischemia. No evidence of increasing edema or mass effect. Normal posterior fossa. Normal vascular flow voids at the skull base. No extra-axial fluid collections. Paranasal sinuses are well aerated. Normal posterior nasopharynx. Mastoid air cells are well aerated. No other significant interval changes. MR/MR head wo/w con [id number] IMPRESSION: 1. No evidence of enhancing intracranial metastatic disease. 2. Stable RIGHT frontal craniotomy with resection cavity. Similar-appearing arita rrounding encephalomalacia and gliosis with ex vacuo dilatation of the RIGHT fr ontal horn. 3. Similar appearing T2 hyperintensity in the periventricular white matter lik noble due to radiation therapy. 4. Chronic infarct in the RIGHT basal ganglia with expected evolution since 5. No other significant changes.
[2024-09-11] MEDS: gadobenate dimeglumine 20 mL vial IV (11:33)
[2024-09-14] MEDS: sodium chloride 0.9% 1,000 ML 999 ML IV (15:30)
[2024-09-17] MEDS: sodium chloride 0.9% 1,000 ML 999 ML IV (15:04)
[2024-09-21 15:25] VITALS: BP 114/64; PULSE 70; RESP 16; TEMP 35.9; O2SAT 99
[2024-09-21] MEDS: sodium chloride 0.9% 1,000 ML 999 ML IV (15:25)
[2024-09-24] MEDS: sodium chloride 0.9% 1,000 ML 999 ML IV (15:17)
[2024-09-24 16:28] VITALS: BP 118/80; PULSE 76; RESP 17; TEMP 36; O2SAT 99
[2024-09-28] MEDS: sodium chloride 0.9% 500 ML 999 ML IV ×2 (15:33→16:02)
[2024-09-28 16:45] VITALS: BP 133/84; PULSE 67; RESP 16; TEMP 36.3; O2SAT 97
[2024-10-01] MEDS: sodium chloride 0.9% 1,000 ML 999 ML IV (15:49)
[2024-10-01 15:50] VITALS: BP 124/78; PULSE 78; RESP 18; TEMP 36.6; O2SAT 97
[2024-10-05] MEDS: sodium chloride 0.9% 1,000 ML 999 ML IV (15:16)
[2024-10-05 15:58] VITALS: BP 131/84; PULSE 67; RESP 16; TEMP 36.4; O2SAT 99
== END 2024-10-05 23:59 | disposition home or self-care (01) ==
PROVIDERS: PCP Surgery Vascular Surgery; Visit Provider Internal Medicine
DX: Z53.9 Procedure and treatment not carried out, unspecified reason; C50.912 Malignant neoplasm of unspecified site of left female breast; E86.0 Dehydration; Z79.899 Other long term (current) drug therapy
CPT/HCPCS: 70553; 96360; J7030; J7040

== ENCOUNTER → 2024-10-09 14:33 | Outpatient (BNVA) | payer BC, SELFPAY | PROVIDERS: PCP Surgery Vascular Surgery; Visit Provider Clinical Nurse Specialist Adult Health | DX: N39.0 Urinary tract infection, site not specified (principal) | CPT/HCPCS: 81000 ==

== ENCOUNTER → 2024-11-02 10:17 | Outpatient (BNVA) | payer BC, SELFPAY | PROVIDERS: PCP Surgery Vascular Surgery; Visit Provider Clinical Nurse Specialist Adult Health | DX: N30.01 Acute cystitis with hematuria (principal) | CPT/HCPCS: 81000; 87077; 87086; 87184 ==

== ENCOUNTER 2024-11-03 15:00 | Oncology outpatient (recurring) (ONCR) | payer BC, SELFPAY ==
[2024-10-08] MEDS: sodium chloride 0.9% 1,000 ML 999 ML IV (15:19)
[2024-10-08 16:21] VITALS: BP 121/61; PULSE 73; RESP 16; O2SAT 99
[2024-10-12] MEDS: sodium chloride 0.9% 1,000 ML 999 ML IV (15:29)
[2024-10-12 16:33] VITALS: BP 112/71; PULSE 68; RESP 16; TEMP 36.4; O2SAT 98
[2024-10-15] MEDS: sodium chloride 0.9% 1,000 ML 999 ML IV (15:17)
[2024-10-15 15:21] VITALS: BP 98/62; RESP 16; TEMP 36.5; O2SAT 98
[2024-10-19] MEDS: sodium chloride 0.9% 1,000 ML 999 ML IV (15:16)
[2024-10-19 16:30] VITALS: BP 102/67; PULSE 74; RESP 16; TEMP 35.8; O2SAT 99
[2024-10-22 10:40] LABS: Basophils # 0.1 10^3/uL (0.0-0.1); Basophils % 0.7 %; Eosinophils # 0.2 10^3/uL (0.0-0.8); Eosinophils % 2.9 %; Lymphocytes # 1.3 10^3/uL (0.8-4.8); Lymphocytes % 18.5 %; Mean Corpuscular HGB Conc 32.4 g/dL (30-55); Mean Corpuscular Hemoglobin 29.5 pg (27-33); Mean Corpuscular Volume 90.9 fl (85-98); Mean Platelet Volume 9.3 fL (7.4-10.4); Monocytes # 0.5 10^3/uL (0.2-0.9); Monocytes % 7.5 %; Neutrophils # 5.03 10^3/uL (1.8-7.7); Neutrophils % 70.1 %; Nucleated Red Blood Cells % 0 %; Platelet Count 315 10^3/cmm (157-399); Red Blood Count 4.07 10^6/uL (3.85-5.65); Red Cell Distribution Width 13.2 % (12.1-15.1); White Blood Count 7.18 10^3/uL (3.29-11.43)
[2024-10-22 11:04] LABS: Alanine Aminotransferase 18 U/L (0-33); Albumin Level 4.1 g/dL (3.5-5.2); Alkaline Phosphatase 110 U/L (35-105); Anion Gap 15.1 (5-19); Aspartate Amino Transferase 17 U/L (0-32); Blood Urea Nitrogen 23 mg/dL (6-20); Calcium 8.9 mg/dL (8.5-10.5); Carbon Dioxide 26 mmol/L (22-29); Chloride 103 mmol/L (98-107); Creatinine Clr Calc Pharmacy 3.6594; Globulin 2.8 g/dL (1.3-4.6); Glomerular Filtration Rate 87.2 mL/min (90-130); Glucose 81 mg/dL (65-115); Osmolality Calculated 293 mOsm/kg (285-295); Potassium 4.1 mmol/L (3.5-5.1); Sodium 140 mmol/L (136-145); Thyroid Stimulating Hormone 2.09 uIU/mL (0.27-4.20); Total Bilirubin 0.4 mg/dL (0.15-1.2); Total Protein 6.9 g/dL (6.6-8.7)
[2024-10-22] MEDS: diphenhydrAMINE 25 mg Capsule PO (13:06)
[2024-10-22] MEDS: acetaminophen 325 mg Tablet 650 MG PO (13:06)
[2024-10-22] MEDS: sodium chloride 0.9% 1,000 ML 999 ML IV (13:07)
[2024-10-22] MEDS: TRASTUZUMAB ANNS IV (13:23)
[2024-10-22] MEDS: SODIUM CHLORIDE 0.9% IV (13:23)
[2024-10-22 14:35] VITALS: BP 101/71; PULSE 78; RESP 16; TEMP 36.1; O2SAT 99
[2024-10-26 15:30] VITALS: BP 102/67; PULSE 71; RESP 16; TEMP 35.6; O2SAT 99
[2024-10-26] MEDS: sodium chloride 0.9% 1,000 ML 999 ML IV (15:33)
--- NOTE | 2024-10-28 06:30 | USCV_ITS ---
Malorie Briggs Age: 53 Gender: F : 1970 Exam Date: 10/28/2024 06:44 Ordering Phys: Chris Mckeon MD Technologist: Exam Location: [facility] [place] Indication: ef high risk meds BP: 100 / 60 HR: Rhythm: Sinus Technical Quality: Adequate MEASUREMENTS (Male / Female) Normal Values 2D ECHO LV Diastolic Diameter PLAX 3.8 cm 4.2 - 5.9 / 3.9 - 5.3 cm IVS Diastolic Thickness 1.2 cm 0.6 - 1.0 / 0.6 - 0.9 cm IVS Systolic Thickness 1.6 cm LVPW Diastolic Thickness 1.2 cm 0.6 - 1.0 / 0.6 - 0.9 cm LVPW Systolic Thickness 1.5 cm LVOT Diameter 2.0 cm LV Ejection Fraction 2D Teich 64.6 % LV Ejection Fraction MOD 4C 65.1 % LV Ejection Fraction MOD 2C 69.9 % LV Ejection Fraction 2C AL 71.5 % LA Diameter 2.5 cm RA Systolic Volume 4C AL 24.5 ml RA Systolic Volume 4C MOD 24.3 ml Aorta at Sinotubular Diameter 2.5 cm M-MODE LA Ao Ratio MM 1.3 AV Cusp Separation MM 2.3 cm FINDINGS Left Ventricle Normal left ventricular size, systolic function and wall thickness, with no regional wall motion abnormalities. Left ventricular ejection fraction is estimated at 60%. Right Ventricle Right Atrium Left Atrium Mitral Valve Aortic Valve Tricuspid Valve Pulmonic Valve Pericardium Aorta IVC CONCLUSIONS Limited echo to assess LV function after chemotherapy Normal left ventricular size, systolic function and wall thickness, with no regional wall motion abnormalities. Left ventricular ejection fraction is estimated at 60%. There is no pericardial effusion. Charles Castillo MD (Electronically Signed) Final Date: 01 November 2024 19:13 S
[2024-10-29] MEDS: sodium chloride 0.9% 1,000 ML 999 ML IV (15:15)
[2024-11-03] MEDS: sodium chloride 0.9% 1,000 ML 999 ML IV (15:21)
[2024-11-03 16:52] VITALS: BP 108/76; PULSE 90; RESP 18; TEMP 36.6; O2SAT 99
== END 2024-11-04 23:59 | disposition home or self-care (01) ==
PROVIDERS: Nurse Practitioner Family; PCP Surgery Vascular Surgery; Visit Provider Internal Medicine
DX: Z53.9 Procedure and treatment not carried out, unspecified reason (principal); C50.912 Malignant neoplasm of unspecified site of left female breast; E86.0 Dehydration; Z79.899 Other long term (current) drug therapy
CPT/HCPCS: 80053; 84443; 85025; 93308; 96360; 96361; 96413; J7030; J7050; J9999; Q5117

== ENCOUNTER 2024-11-05 05:00 | Outpatient (RCR) | payer BC, SELFPAY | END 2024-12-05 23:59 | disposition home or self-care (01) | LOC: APT 05:00 | PROVIDERS: Visit Provider Nurse Practitioner Family | DX: I69.354 Hemiplegia and hemiparesis following cerebral infarction affecting left non-dominant side (principal); R29.6 Repeated falls | CPT/HCPCS: 97163 ==

== ENCOUNTER → 2024-11-24 10:44 | Outpatient (BNVA) | payer BC, SELFPAY | PROVIDERS: PCP Surgery Vascular Surgery; Visit Provider Family Medicine | DX: N30.01 Acute cystitis with hematuria (principal); B35.9 Dermatophytosis, unspecified | CPT/HCPCS: 81000 ==

== ENCOUNTER 2024-12-03 15:05 | Oncology outpatient (recurring) (ONCR) | payer BC, SELFPAY ==
[2024-11-05] MEDS: sodium chloride 0.9% 1,000 ML 983.61 ML IV (15:12)
[2024-11-09] MEDS: sodium chloride 0.9% 1,000 ML 999 ML IV (15:16)
[2024-11-09 16:15] VITALS: BP 111/76; PULSE 72; RESP 17; TEMP 36.1; O2SAT 97
[2024-11-12] MEDS: sodium chloride 0.9% 1,000 ML 999 ML IV (15:30)
[2024-11-12 17:11] VITALS: BP 107/68; PULSE 78; RESP 18; TEMP 36.4; O2SAT 95
[2024-11-16 09:17] LABS: Basophils # 0.1 10^3/uL (0.0-0.1); Basophils % 0.7 %; Eosinophils # 0.3 10^3/uL (0.0-0.8); Hematocrit 37.3 % (36-47); Lymphocytes # 1.5 10^3/uL (0.8-4.8); Lymphocytes % 20.9 %; Mean Corpuscular HGB Conc 32.4 g/dL (30-55); Mean Corpuscular Hemoglobin 29.7 pg (27-33); Mean Corpuscular Volume 91.4 fl (85-98); Mean Platelet Volume 8.9 fL (7.4-10.4); Monocytes # 0.5 10^3/uL (0.2-0.9); Monocytes % 6.5 %; Neutrophils # 4.86 10^3/uL (1.8-7.7); Neutrophils % 67.5 %; Nucleated Red Blood Cells % 0 %; Platelet Count 362 10^3/cmm (157-399); Red Blood Count 4.08 10^6/uL (3.85-5.65); Red Cell Distribution Width 13.4 % (12.1-15.1); White Blood Count 7.21 10^3/uL (3.29-11.43)
[2024-11-16] MEDS: sodium chloride 0.9% 1,000 ML 999 ML IV (09:22)
[2024-11-16 09:53] LABS: Alanine Aminotransferase 18 U/L (0-33); Albumin Level 4.1 g/dL (3.5-5.2); Alkaline Phosphatase 102 U/L (35-105); Anion Gap 16.2 (5-19); Aspartate Amino Transferase 19 U/L (0-32); Blood Urea Nitrogen 25 mg/dL (6-20); CA 15-3 16.2 U/mL (0-25); Calcium 9.2 mg/dL (8.5-10.5); Carbon Dioxide 25 mmol/L (22-29); Chloride 109 mmol/L (98-107); Creatinine Clr Calc Pharmacy 104.4512; Globulin 2.7 g/dL (1.3-4.6); Glomerular Filtration Rate 87.2 mL/min (90-130); Glucose 94 mg/dL (65-115); Osmolality Calculated 306 mOsm/kg (285-295); Potassium 4.2 mmol/L (3.5-5.1); Sodium 146 mmol/L (136-145); Total Bilirubin 0.2 mg/dL (0.15-1.2); Total Protein 6.8 g/dL (6.6-8.7)
[2024-11-16] MEDS: sodium chloride 0.9% 250 ML 75 ML IV (11:02)
[2024-11-16] MEDS: diphenhydrAMINE 25 mg Capsule PO (11:02)
[2024-11-16] MEDS: acetaminophen 325 mg Tablet 650 MG PO (11:02)
[2024-11-16] MEDS: TRASTUZUMAB ANNS IV (11:28)
[2024-11-16] MEDS: SODIUM CHLORIDE 0.9% IV (11:28)
[2024-11-19] MEDS: sodium chloride 0.9% 1,000 ML 999 ML IV (15:31)
[2024-11-19 16:35] VITALS: BP 134/74; PULSE 78; RESP 17; TEMP 36.6; O2SAT 98
[2024-11-23] MEDS: sodium chloride 0.9% 1,000 ML 999 ML IV (15:36)
[2024-11-26 15:12] VITALS: BP 94/68; PULSE 110; RESP 19; TEMP 36.5; O2SAT 94
[2024-11-26] MEDS: sodium chloride 0.9% 1,000 ML 999 ML IV (15:36)
[2024-12-01] MEDS: sodium chloride 0.9% 1,000 ML 999 ML IV (15:24)
[2024-12-03] MEDS: sodium chloride 0.9% 1,000 ML 999 ML IV (15:49)
[2024-12-03 16:56] VITALS: BP 132/70; PULSE 88; RESP 18; TEMP 36.1; O2SAT 96
== END 2024-12-05 23:59 | disposition home or self-care (01) ==
PROVIDERS: Nurse Practitioner Family; PCP Surgery Vascular Surgery; Visit Provider Internal Medicine
DX: C50.912 Malignant neoplasm of unspecified site of left female breast (principal); E86.0 Dehydration; Z79.899 Other long term (current) drug therapy
CPT/HCPCS: 36415; 80053; 85025; 86300; 96360; 96365; 96413; J7030; J7050; J9999; Q5117

== ENCOUNTER 2024-12-06 05:00 | Outpatient (RCR) | payer BC, SELFPAY | END 2025-01-04 23:59 | disposition home or self-care (01) | LOC: APT 05:00 | PROVIDERS: PCP Family Medicine; Visit Provider Nurse Practitioner Family | DX: I69.354 Hemiplegia and hemiparesis following cerebral infarction affecting left non-dominant side (principal); R29.6 Repeated falls | CPT/HCPCS: 97110 ==

== ENCOUNTER 2024-12-28 12:31 | Oncology outpatient (recurring) (ONCR) | payer BC, SELFPAY ==
[2024-12-07 13:43] LABS: Basophils # 0.1 10^3/uL (0.0-0.1); Basophils % 0.8 %; Eosinophils # 0.2 10^3/uL (0.0-0.8); Eosinophils % 3.1 %; Hematocrit 36.1 % (36-47); Lymphocytes % 25.4 %; Mean Corpuscular HGB Conc 32.4 g/dL (30-55); Mean Corpuscular Hemoglobin 29.4 pg (27-33); Mean Corpuscular Volume 90.7 fl (85-98); Mean Platelet Volume 9.5 fL (7.4-10.4); Monocytes # 0.6 10^3/uL (0.2-0.9); Monocytes % 7.1 %; Neutrophils # 4.89 10^3/uL (1.8-7.7); Neutrophils % 63.3 %; Nucleated Red Blood Cells % 0 %; Platelet Count 347 10^3/cmm (157-399); Red Blood Count 3.98 10^6/uL (3.85-5.65); Red Cell Distribution Width 13.2 % (12.1-15.1); White Blood Count 7.72 10^3/uL (3.29-11.43)
[2024-12-07] MEDS: sodium chloride 0.9% 1,000 ML 999 ML IV (13:47)
[2024-12-07 13:59] LABS: Alanine Aminotransferase 20 U/L (0-33); Alkaline Phosphatase 103 U/L (35-105); Anion Gap 17.1 (5-19); Aspartate Amino Transferase 17 U/L (0-32); Blood Urea Nitrogen 26 mg/dL (6-20); Calcium 9.3 mg/dL (8.5-10.5); Carbon Dioxide 25 mmol/L (22-29); Chloride 103 mmol/L (98-107); Globulin 2.7 g/dL (1.3-4.6); Glomerular Filtration Rate 74.7 mL/min (90-130); Glucose 82 mg/dL (65-115); Osmolality Calculated 296 mOsm/kg (285-295); Potassium 4.1 mmol/L (3.5-5.1); Sodium 141 mmol/L (136-145); Total Bilirubin 0.2 mg/dL (0.15-1.2); Total Protein 6.7 g/dL (6.6-8.7)
[2024-12-07 14:28] LABS: CA 15-3 15.9 U/mL (0-25)
[2024-12-07] MEDS: acetaminophen 325 mg Tablet 650 MG PO (15:09)
[2024-12-07] MEDS: diphenhydrAMINE 25 mg Capsule PO (15:10)
[2024-12-07] MEDS: sodium chloride 0.9% 250 ML 75 ML IV (15:14)
[2024-12-07 16:31] VITALS: BP 115/56; PULSE 71; RESP 17; TEMP 35.9; O2SAT 100
[2024-12-10 11:02] VITALS: BP 106/68; PULSE 79; RESP 17; TEMP 36.4; O2SAT 95
[2024-12-10] MEDS: sodium chloride 0.9% 1,000 ML 1000 ML IV (11:19)
[2024-12-10 12:30] VITALS: BP 124/72; BP 124/78; PULSE 72; PULSE 82; RESP 17; RESP 18; TEMP 36.1; TEMP 36.6; O2SAT 96
[2024-12-14] MEDS: sodium chloride 0.9% 1,000 ML 999 ML IV (15:11)
[2024-12-17] MEDS: sodium chloride 0.9% 1,000 ML 999 ML IV (15:11)
[2024-12-17 16:25] VITALS: BP 109/76; PULSE 71; RESP 17; TEMP 36; O2SAT 98
--- NOTE | 2024-12-21 13:45 | MR_ITS ---
WS: [id number] MRI BRAIN WITH AND WITHOUT CONTRAST HISTORY: compare to previous COMPARISON: 09/11/2024, 06/08/2024 TECHNIQUE: Multiplanar imaging performed through the brain with MultiHance 18 ml's IV. Stable RIGHT frontal craniotomy with resection cavity. Postoperative RIGHT frontal lobe resection site is stable. There are a few scattered hemosiderin foci near the resection cavity. No residual or new enhancement at the resection site. Stable surrounding gliosis. Diffusion imaging is normal. Confluent periventricular T2 and FLAIR signal abnormalities likely due to radiation therapy. Remote infarct in the RIGHT basal ganglia. Mildly prominent ventricles and extra-axial spaces. Clivus and pituitary gland are normal. Visualized posterior fossa and brainstem are also normal. Postcontrast images are negative for masses or vascular malformations. Dural venous sinuses are normal. Paranasal sinuses: Well aerated with no significant disease. Mastoid air cells: Small amount of fluid in the RIGHT mastoid air cell. Calvarium and scalp: Large RIGHT frontal craniectomy. MR/MR head wo/w con [id number] IMPRESSION: 1. No evidence for recurrent metastatic disease to the brain. 2. Stable RIGHT frontal craniotomy with resection cavity. Encephalomalacia and gliosis are stable. 3. Extensive periventricular T2 hyperintensity likely due to radiation therapy . 4. Remote infarct RIGHT basal ganglia.
[2024-12-21] MEDS: gadobenate dimeglumine 20 mL vial IV (14:22)
[2024-12-21] MEDS: sodium chloride 0.9% 1,000 ML 999 ML IV (14:45)
[2024-12-21 15:50] VITALS: BP 124/63; PULSE 75; RESP 17; TEMP 36; O2SAT 99
[2024-12-24] MEDS: sodium chloride 0.9% 1,000 ML 999 ML IV (15:18)
--- NOTE | 2024-12-25 08:00 | PETR_ITS ---
PROCEDURE INFORMATION: Exam: PET/CT Skull Base to Mid-thigh Exam date and time: 12/25/2024 8:44 AM Age: 54 years old Clinical indication: Condition or disease; Primary cancer: Beast cancer; Condition/disease: Breast cancer; Prior surgery; Surgery date: 6+ months; Surgery type: Breast, brain- tumor; Additional info: Breast cancer, note on order says compare to prior, no prior provided by oncology. LABS AND CLINICAL REPORTS: Glucose: 96 mg/dl Treatment strategy for malignancy (PET staging): Restaging (PS) TECHNIQUE: Imaging protocol: Following at least four-hour fasting and following the injection of radiopharmaceutical, low dose CT images were obtained. Then, PET images were obtained. Attenuation corrected images were constructed using the CT scan. Fused images of PET and CT were reviewed. The standardized uptake values (SUV) reported below are maximum values within a region of interest, expressed in gm/ml. Exam includes orbital meatal line to mid-thigh. SUV normalization method: BodyWeight Radiopharmaceutical: 10.1 mCi F-18 FDG (Fluorodeoxyglucose), IV. Time of imaging post radiopharmaceutical administration: 48 minutes Injection site: RIGHT AC COMPARISON: NM bone scan whole body* [id number] 12/12/2023 9:28 AM FINDINGS: Brain: Right frontal encephalomalacia and resection cavity with chronic postsurgical changes with associated photopenic defect. The remaining brain parenchyma has normal physiologic uptake. Pharynx: No abnormal uptake. Larynx: Circumferential increased uptake likely due to vocal cord usage. No abnormal uptake. Lungs, pleura and trachea: No abnormal uptake. No FDG uptake in stable 1.4 cm irregular posterior right lower lobe nodule. Heart: Normal physiologic uptake. Mediastinal space: No abnormal uptake. Liver: No abnormal uptake. Gallbladder and biliary ducts: No abnormal uptake. Pancreas: No abnormal uptake. Spleen: No abnormal uptake. Adrenal glands: No abnormal uptake. Kidneys and ureters: Normal physiologic uptake. Stomach and bowel: No abnormal uptake. Vasculature: No abnormal uptake. Lymph nodes: No abnormal uptake. No lymphadenopathy in the head, neck, chest, abdomen, pelvis, and extremities. Skeleton: No abnormal uptake in the visualized axial and appendicular skeleton. Soft tissues: No abnormal uptake in the visualized head, neck, chest, abdomen, pelvis, and extremities. Bilateral breast implants. Left chest wall chemo port with tip at the cavoatrial junction. METRICS: Mediastinal blood pool: Mean SUV of 2.5 Liver uptake: Mean SUV of 3.0 PET/PET skull to thigh INIT [id number] IMPRESSION: 1. No abnormal radiotracer uptake. No functional or anatomic evidence of metastatic disease within the head, neck, chest, abdomen and pelvis. 2. Stable irregular 1.4 cm right lower lobe pulmonary nodule, not FDG avid. Continued surveillance is recommended
[2024-12-28] MEDS: sodium chloride 0.9% 1,000 ML 999 ML IV (13:08)
[2024-12-28 13:20] LABS: Basophils % 0.6 %; Eosinophils # 0.3 10^3/uL (0.0-0.8); Eosinophils % 4.1 %; Hematocrit 36.7 % (36-47); Lymphocytes # 1.7 10^3/uL (0.8-4.8); Lymphocytes % 23.6 %; Mean Corpuscular HGB Conc 32.7 g/dL (30-55); Mean Corpuscular Volume 91.8 fl (85-98); Mean Platelet Volume 9.3 fL (7.4-10.4); Monocytes # 0.6 10^3/uL (0.2-0.9); Monocytes % 8.5 %; Neutrophils # 4.43 10^3/uL (1.8-7.7); Neutrophils % 62.9 %; Nucleated Red Blood Cells % 0 %; Platelet Count 356 10^3/cmm (157-399); Red Cell Distribution Width 13.3 % (12.1-15.1); White Blood Count 7.04 10^3/uL (3.29-11.43)
[2024-12-28 13:52] LABS: Alanine Aminotransferase 17 U/L (0-33); Albumin Level 4.1 g/dL (3.5-5.2); Alkaline Phosphatase 101 U/L (35-105); Anion Gap 15.2 (5-19); Aspartate Amino Transferase 17 U/L (0-32); Blood Urea Nitrogen 19 mg/dL (6-20); CA 15-3 16.1 U/mL (0-25); Calcium 9.1 mg/dL (8.5-10.5); Carbon Dioxide 23 mmol/L (22-29); Chloride 106 mmol/L (98-107); Globulin 2.5 g/dL (1.3-4.6); Glomerular Filtration Rate 103.8 mL/min (90-130); Glucose 73 mg/dL (65-115); Osmolality Calculated 291 mOsm/kg (285-295); Potassium 4.2 mmol/L (3.5-5.1); Sodium 140 mmol/L (136-145); Total Bilirubin 0.3 mg/dL (0.15-1.2); Total Protein 6.6 g/dL (6.6-8.7)
[2024-12-28] MEDS: diphenhydrAMINE 25 mg Capsule PO (14:56)
[2024-12-28] MEDS: acetaminophen 325 mg Tablet 650 MG PO (14:56)
[2024-12-28] MEDS: sodium chloride 0.9% 250 ML 75 ML IV (14:56)
[2024-12-28 21:39] LABS: Free T4 Free Thyroxine 0.97 ng/dL (0.82-1.77); T3 Free 2.3 PG/ML (2.0-4.4); Thyroid Stimulating Hormone 2.27 uIU/mL (0.27-4.20)
== END 2024-12-28 23:59 | disposition home or self-care (01) ==
PROVIDERS: Nurse Practitioner Family; PCP Surgery Vascular Surgery; Visit Provider Internal Medicine Medical Oncology
DX: Z51.12 Encounter for antineoplastic immunotherapy (principal); C50.912 Malignant neoplasm of unspecified site of left female breast; R68.89 Other general symptoms and signs; D49.6 Neoplasm of unspecified behavior of brain; R91.1 Solitary pulmonary nodule; Z79.899 Other long term (current) drug therapy; Z95.828 Presence of other vascular implants and grafts; Z79.811 Long term (current) use of aromatase inhibitors
CPT/HCPCS: 70553; 78815; 80053; 84439; 84443; 84481; 85025; 86300; 96360; 96413; A9552; J7030; J7050; J9999; Q5117

== ENCOUNTER 2025-01-04 14:48 | Oncology outpatient (recurring) (ONCR) | payer BC, SELFPAY ==
[2024-12-31] MEDS: sodium chloride 0.9% 1,000 ML 999 ML IV (14:47)
[2024-12-31 15:50] VITALS: BP 124/78; PULSE 78; RESP 18; TEMP 36.6; O2SAT 98
[2025-01-04 14:54] VITALS: BP 100/57; PULSE 77; RESP 16; TEMP 35.8; O2SAT 97
[2025-01-04] MEDS: sodium chloride 0.9% 1,000 ML 999 ML IV (15:01)
== END 2025-01-04 23:59 | disposition home or self-care (01) ==
PROVIDERS: PCP Surgery Vascular Surgery; Visit Provider Internal Medicine Medical Oncology
DX: Z53.9 Procedure and treatment not carried out, unspecified reason; C50.912 Malignant neoplasm of unspecified site of left female breast; E86.0 Dehydration; Z79.899 Other long term (current) drug therapy
CPT/HCPCS: 96360; J7030

== ENCOUNTER 2025-01-05 05:00 | Outpatient (RCR) | payer BC, SELFPAY | END 2025-02-04 23:59 | disposition home or self-care (01) | LOC: APT 05:00 | PROVIDERS: PCP Surgery Vascular Surgery; Visit Provider Nurse Practitioner Family | DX: I69.354 Hemiplegia and hemiparesis following cerebral infarction affecting left non-dominant side (principal); R29.6 Repeated falls | CPT/HCPCS: 97110; 97112; 97530 ==

== ENCOUNTER 2025-02-04 14:09 | Oncology outpatient (recurring) (ONCR) | payer BC, SELFPAY ==
[2025-01-07 12:23] VITALS: BP 108/75; PULSE 75; RESP 18; TEMP 36.6; O2SAT 97
[2025-01-07 13:50] VITALS: BP 116/55; PULSE 63; RESP 18; TEMP 36.4; O2SAT 98
[2025-01-14 14:56] VITALS: BP 113/76; PULSE 67; TEMP 36.3; O2SAT 99
[2025-01-18 13:08] LABS: Hematocrit 36.5 % (36-47); Hemoglobin 12.10 g/dL (11.27-16.99); Mean Corpuscular HGB Conc 33.2 g/dL (30-55); Mean Corpuscular Hemoglobin 30.0 pg (27-33); Mean Corpuscular Volume 90.6 fl (85-98); Nucleated Red Blood Cells % 0 %; Platelet Count 347 10^3/cmm (157-399); Red Blood Count 4.03 10^6/uL (3.85-5.65); White Blood Count 7.40 10^3/uL (3.29-11.43)
[2025-01-18 13:45] LABS: Alanine Aminotransferase 14 U/L (0-33); Albumin Level 4.1 g/dL (3.5-5.2); Alkaline Phosphatase 111 U/L (35-105); Anion Gap 16.2 (5-19); Aspartate Amino Transferase 15 U/L (0-32); Blood Urea Nitrogen 23 mg/dL (6-20); CA 15-3 16.1 U/mL (0-25); Calcium 8.9 mg/dL (8.5-10.5); Carbon Dioxide 24 mmol/L (22-29); Chloride 106 mmol/L (98-107); Creatinine Clr Calc Pharmacy 103.7573; Globulin 2.6 g/dL (1.3-4.6); Glucose 82 mg/dL (65-115); Osmolality Calculated 297 mOsm/kg (285-295); Potassium 4.2 mmol/L (3.5-5.1); Sodium 142 mmol/L (136-145); Total Protein 6.7 g/dL (6.6-8.7)
[2025-01-18] MEDS: TRASTUZUMAB ANNS IV (14:52)
[2025-01-18] MEDS: SODIUM CHLORIDE 0.9% IV (14:52)
[2025-01-18 15:58] VITALS: BP 108/54; PULSE 63; RESP 17; TEMP 35.9; O2SAT 99
[2025-01-25 13:11] VITALS: BP 179/80; PULSE 88; RESP 18; TEMP 36.5; O2SAT 97
[2025-01-25 14:32] VITALS: BP 108/70; PULSE 75; RESP 16; TEMP 35.9; O2SAT 99
[2025-01-28 13:15] VITALS: BP 99/65; PULSE 82; RESP 17; TEMP 37.1; O2SAT 96
[2025-02-04 15:35] VITALS: BP 109/60; PULSE 79; RESP 18; TEMP 35.9; O2SAT 95
== END 2025-02-04 23:59 | disposition home or self-care (01) ==
PROVIDERS: Nurse Practitioner Family; PCP Surgery Vascular Surgery; Visit Provider Internal Medicine Medical Oncology
DX: Z53.9 Procedure and treatment not carried out, unspecified reason; C50.912 Malignant neoplasm of unspecified site of left female breast; Z79.899 Other long term (current) drug therapy; E86.0 Dehydration
CPT/HCPCS: 80053; 85025; 86300; 96360; 96413; 96523; J7030; J7050; J9999; Q5117

== ENCOUNTER 2025-02-05 05:00 | Outpatient (RCR) | payer BC, SELFPAY | END 2025-03-07 23:59 | disposition home or self-care (01) | LOC: SPT 05:00 | PROVIDERS: PCP Family Medicine; Visit Provider Family Medicine | DX: N39.46 Mixed incontinence (principal) | CPT/HCPCS: 97110; 97161 ==

== ENCOUNTER 2025-03-05 15:45 | Oncology outpatient (recurring) (ONCR) | payer BC, SELFPAY ==
[2025-02-08 12:55] LABS: Hematocrit 37.9 % (36-47); Hemoglobin 12.40 g/dL (11.27-16.99); Mean Corpuscular HGB Conc 32.7 g/dL (30-55); Mean Corpuscular Hemoglobin 29.1 pg (27-33); Mean Corpuscular Volume 89.0 fl (85-98); Nucleated Red Blood Cells % 0 %; Platelet Count 372 10^3/cmm (157-399); Red Blood Count 4.26 10^6/uL (3.85-5.65); White Blood Count 7.31 10^3/uL (3.29-11.43)
[2025-02-08 13:24] LABS: Alanine Aminotransferase 15 U/L (0-33); Albumin Level 4.2 g/dL (3.5-5.2); Alkaline Phosphatase 113 U/L (35-105); Anion Gap 15.6 (5-19); Aspartate Amino Transferase 16 U/L (0-32); Blood Urea Nitrogen 28 mg/dL (6-20); CA 15-3 16.2 U/mL (0-25); Calcium 9.2 mg/dL (8.5-10.5); Carbon Dioxide 24 mmol/L (22-29); Chloride 108 mmol/L (98-107); Creatinine Clr Calc Pharmacy 103.7573; Globulin 2.7 g/dL (1.3-4.6); Glucose 81 mg/dL (65-115); Osmolality Calculated 301 mOsm/kg (285-295); Potassium 4.6 mmol/L (3.5-5.1); Sodium 143 mmol/L (136-145); Total Protein 6.9 g/dL (6.6-8.7)
[2025-02-08] MEDS: TRASTUZUMAB ANNS IV (15:15)
[2025-02-08] MEDS: SODIUM CHLORIDE 0.9% IV (15:15)
[2025-02-08 16:31] VITALS: BP 104/67; PULSE 69; RESP 16; TEMP 35.9; O2SAT 100
[2025-02-11 14:41] VITALS: BP 109/59; PULSE 60; RESP 16; TEMP 35.9; O2SAT 97
[2025-02-15 14:23] VITALS: BP 112/62; PULSE 66; RESP 16
[2025-02-15 15:25] VITALS: BP 102/68; PULSE 81; RESP 16; TEMP 35.8; O2SAT 99
[2025-02-18 15:49] VITALS: BP 114/77; PULSE 78; RESP 18; TEMP 36.6; O2SAT 98
[2025-03-01 09:42] LABS: Hematocrit 38.5 % (36-47); Hemoglobin 12.70 g/dL (11.27-16.99); Mean Corpuscular HGB Conc 33.0 g/dL (30-55); Mean Corpuscular Hemoglobin 30.1 pg (27-33); Mean Corpuscular Volume 91.2 fl (85-98); Nucleated Red Blood Cells % 0 %; Platelet Count 374 10^3/cmm (157-399); Red Blood Count 4.22 10^6/uL (3.85-5.65); White Blood Count 7.11 10^3/uL (3.29-11.43)
[2025-03-01 10:08] LABS: Alanine Aminotransferase 19 U/L (0-33); Albumin Level 4.2 g/dL (3.5-5.2); Alkaline Phosphatase 118 U/L (35-105); Anion Gap 14.9 (5-19); Aspartate Amino Transferase 17 U/L (0-32); Blood Urea Nitrogen 26 mg/dL (6-20); CA 15-3 16.4 U/mL (0-25); Calcium 9.4 mg/dL (8.5-10.5); Carbon Dioxide 25 mmol/L (22-29); Chloride 105 mmol/L (98-107); Creatinine Clr Calc Pharmacy 90.5599; Globulin 2.7 g/dL (1.3-4.6); Glucose 106 mg/dL (65-115); Osmolality Calculated 297 mOsm/kg (285-295); Potassium 3.9 mmol/L (3.5-5.1); Sodium 141 mmol/L (136-145); Total Protein 6.9 g/dL (6.6-8.7)
[2025-03-01] MEDS: SODIUM CHLORIDE 0.9% IV (12:11)
[2025-03-01] MEDS: TRASTUZUMAB ANNS IV (12:11)
[2025-03-01 13:32] VITALS: BP 97/62; PULSE 85; RESP 16; TEMP 35.6; O2SAT 98
--- NOTE | 2025-03-05 15:45 | USCV_ITS ---
Malorie Briggs Age: 54 Gender: F : 1970 Exam Date: 03/05/2025 15:48 Ordering Phys: Antionette Padgett APRN Technologist: SIMBA Exam Location: [facility] [place] Indication: High Risk Medication BP: 128 / 77 HR: Rhythm: Sinus Technical Quality: Adequate MEASUREMENTS (Male / Female) Normal Values 2D ECHO LV Diastolic Diameter PLAX 5.1 cm 4.2 - 5.9 / 3.9 - 5.3 cm IVS Diastolic Thickness 0.9 cm 0.6 - 1.0 / 0.6 - 0.9 cm IVS Systolic Thickness 1.7 cm LVPW Diastolic Thickness 1.0 cm 0.6 - 1.0 / 0.6 - 0.9 cm LVPW Systolic Thickness 2.1 cm LVOT Diameter 1.9 cm LV Ejection Fraction 2D Teich 57.4 % LV Ejection Fraction MOD 4C 58.4 % LV Ejection Fraction MOD 2C 70.0 % LV Ejection Fraction 2C AL 69.7 % LA Diameter 3.7 cm RA Systolic Volume 4C AL 17.8 ml RA Systolic Volume 4C MOD 16.0 ml LA Sys Volume AL 31.6 cm cubed LA Sys Volume Index AL 15.8 cm cubed/m squared Aorta at Sinotubular Diameter 2.3 cm M-MODE LA Ao Ratio MM 1.5 AV Cusp Separation MM 1.1 cm FINDINGS Left Ventricle Normal left ventricular size, systolic function and wall thickness, with no regional wall motion abnormalities. EF 58%.Normal diastolic function. Right Ventricle Normal right ventricular size and systolic function. RVSP could not be calculated due to incomplete tricuspid regurgitation velocity profile. Right Atrium Normal right atrial size. Left Atrium Normal left atrial size. Mitral Valve Structurally normal mitral valve. No mitral valve stenosis. No mitral valve regurgitation. Aortic Valve No aortic valve stenosis. No aortic valve regurgitation. Tricuspid Valve No tricuspid valve regurgitation. Pulmonic Valve No pulmonary valve stenosis. No pulmonary valve regurgitation. Pericardium No pericardial effusion. Aorta Normal size aortic root and proximal ascending aorta. IVC Inferior vena cava not visualized. CONCLUSIONS 1. Normal biventricular size and systolic function. LVEF 58%. 2. Normal valvular function.. Johnathon Edmondson MD, FACC (Electronically Signed) Final Date: 07 March 2025 14:43 S
== END 2025-03-07 23:59 | disposition home or self-care (01) ==
LOC: RAD 03-06 → ONCMED 03-09 07:35
PROVIDERS: Nurse Practitioner; Nurse Practitioner Family; PCP Family Medicine; Visit Provider Internal Medicine Medical Oncology
DX: C50.919 Malignant neoplasm of unspecified site of unspecified female breast (principal); Z53.9 Procedure and treatment not carried out, unspecified reason
CPT/HCPCS: 80053; 85025; 86300; 93308; 96360; 96361; 96413; J7030; J7050; J9999; Q5117

== ENCOUNTER 2025-03-08 05:00 | Outpatient (RCR) | payer BC, SELFPAY | END 2025-04-06 23:59 | disposition home or self-care (01) | LOC: SPT 05:00 | PROVIDERS: PCP Family Medicine; Visit Provider Family Medicine | DX: N39.46 Mixed incontinence (principal) | CPT/HCPCS: 97110; 97530 ==

== ENCOUNTER 2025-04-06 12:43 | Oncology outpatient (recurring) (ONCR) | payer BC, SELFPAY ==
[2025-03-11 15:45] VITALS: BP 103/55; PULSE 73; RESP 16; TEMP 36; O2SAT 99
--- NOTE | 2025-03-15 09:30 | CTR_ITS ---
PROCEDURE INFORMATION: Exam: CT Chest With Contrast; Diagnostic Exam date and time: 03/15/2025 10:08 AM Age: 54 years old Clinical indication: Prior chemotherapy - breast, - 2009 brain 2019. Prior oncological surgery - bilateral mastectomy 2009, brain 2019. Sterotactic radiation to brain in 2021. Mass, lump, or swelling in the chest; Prior surgery; Surgery date: 6+ months; Surgery type: Port; Follow up lung nodule, breast cancer, brain cancer; Additional info: F/u on 1.4cm rll nodule recommend per 08/2024 CT TECHNIQUE: Imaging protocol: Diagnostic computed tomography of the chest with contrast. Radiation optimization: All CT scans at this facility use at least one of these dose optimization techniques: automated exposure control; mA and/or kV adjustment per patient size (includes targeted exams where dose is matched to clinical indication); or iterative reconstruction. Contrast material: OMNIPAQUE 350; Contrast volume: 100 ml; Contrast route: INTRAVENOUS (IV); COMPARISON: PT PET skull to thigh INIT [id number] 12/25/2024 8:44 AM RADIATION DOSE METRICS: Total DLP (mGy-cm): 425.1 FINDINGS: Tubes, catheters and devices: A left-sided VAD is in good position with the catheter tip in the lower SVC. Lungs: There are faint patchy areas of fibrosis scattered throughout both lungs. A 1.5 cm oval nodule is again noted in the posterior aspect of the right lower lobe. No other lung nodule or acute infiltrate can be seen. Pleural spaces: Unremarkable. No pneumothorax. No pleural effusion. Heart: Unremarkable. No cardiomegaly. No pericardial effusion. Lymph nodes: Unremarkable. No enlarged lymph nodes. Vasculature: Unremarkable. No aortic aneurysm. Bones/joints: Unremarkable. No acute fracture. Soft tissues: There is evidence of previous bilateral mastectomy and bilateral chest wall implants are noted. CT/CT chest w con* [id number] IMPRESSION: 1. There is no evidence of active neoplastic disease. 2. Stable right lower lobe lung nodule and chronic lung changes
[2025-03-15] MEDS: iohexol 350 mg/mL 500 mL Btl (per mL) IV (10:13)
[2025-03-18] MEDS: alteplase 1 mg/mL SDV 2 mL 2 MG INTRACATH (14:49)
[2025-03-18 14:58] VITALS: BP 104/69; PULSE 74; RESP 16; TEMP 36.1; O2SAT 97
[2025-03-22 10:02] LABS: Hematocrit 38.8 % (36-47); Hemoglobin 13.10 g/dL (11.27-16.99); Mean Corpuscular HGB Conc 33.8 g/dL (30-55); Mean Corpuscular Hemoglobin 30.5 pg (27-33); Mean Corpuscular Volume 90.2 fl (85-98); Nucleated Red Blood Cells % 0 %; Platelet Count 369 10^3/cmm (157-399); Red Blood Count 4.30 10^6/uL (3.85-5.65); White Blood Count 8.45 10^3/uL (3.29-11.43)
[2025-03-22 10:26] LABS: Alanine Aminotransferase 15 U/L (0-33); Albumin Level 4.2 g/dL (3.5-5.2); Alkaline Phosphatase 124 U/L (35-105); Anion Gap 14.9 (5-19); Aspartate Amino Transferase 17 U/L (0-32); Blood Urea Nitrogen 21 mg/dL (6-20); CA 15-3 17.4 U/mL (0-25); Calcium 9.1 mg/dL (8.5-10.5); Carbon Dioxide 25 mmol/L (22-29); Chloride 108 mmol/L (98-107); Creatinine Clr Calc Pharmacy 91.0862; Globulin 2.9 g/dL (1.3-4.6); Glucose 109 mg/dL (65-115); Osmolality Calculated 302 mOsm/kg (285-295); Potassium 3.9 mmol/L (3.5-5.1); Sodium 144 mmol/L (136-145); Total Protein 7.1 g/dL (6.6-8.7)
[2025-03-22] MEDS: TRASTUZUMAB ANNS IV (11:48)
[2025-03-22] MEDS: SODIUM CHLORIDE 0.9% IV (11:48)
[2025-03-22 12:38] VITALS: BP 112/72; PULSE 77; RESP 16; TEMP 35.6; O2SAT 98
[2025-03-29 14:08] VITALS: BP 101/45; PULSE 68; RESP 16; TEMP 35.8; O2SAT 96
[2025-03-29 15:04] VITALS: BP 96/56
[2025-04-01 14:25] VITALS: BP 115/73; PULSE 80; RESP 17; TEMP 36.8; O2SAT 98
[2025-04-01 15:38] VITALS: BP 115/84; PULSE 82; RESP 17; TEMP 36.6; O2SAT 97
[2025-04-05] MEDS: alteplase 1 mg/mL SDV 2 mL 2 MG INTRACATH (15:03)
--- NOTE | 2025-04-05 15:33 | PC.NURSE ---
Patient came in for hydration where port was attempted for blood access for infusion. When no blood return was successful, Cathflo was ordered and administered as directed. After 30 minutes there was still no blood flow. Patient was then presented with the option for IV insertion or to return the following day to try again to use the port. Patient has opted to return the following day where attempts will be made again.
[2025-04-06 14:20] VITALS: BP 106/66; PULSE 80; RESP 16; TEMP 36; O2SAT 97
== END 2025-04-06 23:59 | disposition home or self-care (01) ==
PROVIDERS: Nurse Practitioner Family; PCP Family Medicine; Visit Provider Internal Medicine Medical Oncology
DX: D49.6 Neoplasm of unspecified behavior of brain (principal); Z79.899 Other long term (current) drug therapy
CPT/HCPCS: 36593; 71260; 80053; 85025; 86300; 96360; 96361; 96413; J2997; J7030; J7050; J9999; Q5117

== ENCOUNTER 2025-05-06 14:00 | Oncology outpatient (recurring) (ONCR) | payer BC, SELFPAY ==
[2025-04-08 15:24] VITALS: BP 98/54; PULSE 94; RESP 16; TEMP 36; O2SAT 98
[2025-04-12 10:23] LABS: Hematocrit 37.9 % (36-47); Hemoglobin 12.30 g/dL (11.27-16.99); Mean Corpuscular HGB Conc 32.5 g/dL (30-55); Mean Corpuscular Hemoglobin 29.2 pg (27-33); Mean Corpuscular Volume 90.0 fl (85-98); Nucleated Red Blood Cells % 0 %; Platelet Count 373 10^3/cmm (157-399); Red Blood Count 4.21 10^6/uL (3.85-5.65); White Blood Count 8.32 10^3/uL (3.29-11.43)
[2025-04-12 10:54] LABS: Alanine Aminotransferase 15 U/L (0-33); Albumin Level 4.1 g/dL (3.5-5.2); Alkaline Phosphatase 114 U/L (35-105); Anion Gap 15.0 (5-19); Aspartate Amino Transferase 16 U/L (0-32); Blood Urea Nitrogen 23 mg/dL (6-20); CA 15-3 17.1 U/mL (0-25); Calcium 9.3 mg/dL (8.5-10.5); Carbon Dioxide 24 mmol/L (22-29); Chloride 108 mmol/L (98-107); Globulin 2.8 g/dL (1.3-4.6); Glucose 83 mg/dL (65-115); Osmolality Calculated 299 mOsm/kg (285-295); Potassium 4.0 mmol/L (3.5-5.1); Sodium 143 mmol/L (136-145); Total Protein 6.9 g/dL (6.6-8.7)
--- NOTE | 2025-04-29 16:06 | PC.NURSE ---
Addendum entered and electronically signed by FAYE Martinez 05/03/25 11:21: Patient reports CT Head scheduled for 04/29/25 not completed. Patient evaluated by Dr. Mckeon today. Recommended CT Head be cancelled. Original Note: Pt was very unstable upon standing when being called back, pt wanted to walk into the infusion suite but I had pt sit for her safety as she was going to stable. This was new for the pt as of earlier today. Pt did fall and hit head a week ago but pt refused to have it checked out. Upon talking with the pt she repeated her story a couple of times so I let Padmini know how the pt was doing. Also BP was 92/57. Padmini advised that the pt needs to do a CT scan of the head.
[2025-05-03 10:33] LABS: Hematocrit 39.0 % (36-47); Hemoglobin 12.60 g/dL (11.27-16.99); Mean Corpuscular HGB Conc 32.3 g/dL (30-55); Mean Corpuscular Hemoglobin 29.2 pg (27-33); Mean Corpuscular Volume 90.3 fl (85-98); Nucleated Red Blood Cells % 0 %; Platelet Count 371 10^3/cmm (157-399); Red Blood Count 4.32 10^6/uL (3.85-5.65); White Blood Count 6.83 10^3/uL (3.29-11.43)
[2025-05-03 11:02] LABS: Alanine Aminotransferase 17 U/L (0-33); Albumin Level 4.2 g/dL (3.5-5.2); Alkaline Phosphatase 124 U/L (35-105); Anion Gap 15.4 (5-19); Aspartate Amino Transferase 17 U/L (0-32); Blood Urea Nitrogen 25 mg/dL (6-20); CA 15-3 17.5 U/mL (0-25); Calcium 9.1 mg/dL (8.5-10.5); Carbon Dioxide 24 mmol/L (22-29); Chloride 107 mmol/L (98-107); Globulin 2.9 g/dL (1.3-4.6); Glucose 86 mg/dL (65-115); Osmolality Calculated 298 mOsm/kg (285-295); Potassium 4.4 mmol/L (3.5-5.1); Sodium 142 mmol/L (136-145); Total Protein 7.1 g/dL (6.6-8.7)
[2025-05-03] MEDS: TRASTUZUMAB ANNS IV (11:56)
[2025-05-03] MEDS: SODIUM CHLORIDE 0.9% IV (11:56)
[2025-05-03 13:17] VITALS: BP 124/67; PULSE 77; RESP 16; TEMP 36; O2SAT 97
[2025-05-06 15:54] VITALS: BP 108/68; PULSE 78; RESP 17; TEMP 36.1; O2SAT 97
== END 2025-05-07 23:59 | disposition home or self-care (01) ==
PROVIDERS: Nurse Practitioner; PCP Family Medicine; Visit Provider Internal Medicine Medical Oncology
DX: C50.919 Malignant neoplasm of unspecified site of unspecified female breast (principal); Z79.899 Other long term (current) drug therapy; Z53.9 Procedure and treatment not carried out, unspecified reason
CPT/HCPCS: 80053; 85025; 86300; 96360; 96375; 96413; J7030; J7050; J9999; Q5117

== ENCOUNTER 2025-06-02 14:00 | Oncology outpatient (recurring) (ONCR) | payer BC, SELFPAY ==
[2025-05-17 15:34] VITALS: BP 112/72; PULSE 65; RESP 16; TEMP 36.1; O2SAT 99
[2025-05-21 09:48] VITALS: BP 122/58; PULSE 66; RESP 17; TEMP 35.7; O2SAT 99
--- NOTE | 2025-05-21 10:30 | PETR_ITS ---
PROCEDURE INFORMATION: Exam: PET/CT Skull Base to Mid-thigh Exam date and time: 05/21/2025 11:35 AM Age: 54 years old Clinical indication: Condition or disease; Primary cancer: Breast cancer; Prior surgery; Surgery date: 6+ months; Surgery type: Bilateral breast; Additional info: Breast cancer/restaging LABS AND CLINICAL REPORTS: Glucose: 92 mg/dl Treatment strategy for malignancy (PET staging): Restaging (PS) TECHNIQUE: Imaging protocol: Following at least four-hour fasting and following the injection of radiopharmaceutical, low dose CT images were obtained. Then, PET images were obtained. Attenuation corrected images were constructed using the CT scan. Fused images of PET and CT were reviewed. The standardized uptake values (SUV) reported below are maximum values within a region of interest, expressed in gm/ml. Exam includes orbital meatal line to mid-thigh. SUV normalization method: BodyWeight Radiopharmaceutical: 11.3 mCi F-18 FDG (Fluorodeoxyglucose), IV. Time of imaging post radiopharmaceutical administration: 47 minutes Injection site: right ac COMPARISON: 1. PT PET skull to thigh INIT [id number] 12/25/2024 8:[address] chest w con* [id number] 03/15/2025 10:08 AM FINDINGS: Tubes, catheters and devices: Left chest port terminates at the superior cavoatrial junction and shows developed avid linear uptake along the SVC catheter segment. Brain: Partially visualized right frontal lobe encephalomalacia with overlying craniotomy. Visualized brain has otherwise normal physiologic uptake. Pharynx: No abnormal uptake. Larynx: No abnormal uptake. Lungs, pleura and trachea: No abnormal uptake. Stable 1.4 cm non FDG avid posterior right lower lobe nodule on axial image 104. Heart: Normal physiologic uptake. Mediastinal space: No abnormal uptake. Diaphragm: Small hiatal hernia. Liver: No abnormal uptake. Gallbladder and biliary ducts: No abnormal uptake. Pancreas: No abnormal uptake. Spleen: No abnormal uptake. Adrenal glands: No abnormal uptake. Kidneys and ureters: Normal physiologic uptake. Punctate nonobstructive right nephrolith. Stomach and bowel: No abnormal uptake. Urinary bladder: Minimal air within the nondependent urinary bladder. Vasculature: No abnormal uptake. Lymph nodes: No abnormal uptake. No lymphadenopathy in the head, neck, chest, abdomen, pelvis, and extremities. Skeleton: No suspicious abnormal uptake in the visualized axial and appendicular skeleton. Mild [id number]-[id number]-snot-left shoulder and right hip periarticular FDG uptake without underlying CT abnormality is likely inflammatory/degenerative. Soft tissues: No abnormal uptake in the visualized head, neck, chest, abdomen, pelvis, and extremities. Prior bilateral mastectomies and breast implants. METRICS: Mediastinal blood pool: SUV mean 3.0 Liver uptake: SUV mean 3.5 PET/PET skull to thigh SUBS [id number] IMPRESSION: 1. No evidence of FDG avid malignancy. 2. Stable non FDG avid right lower lobe nodule. 3. Minimal air within the nondependent urinary bladder, query recent instrumentation. Otherwise consideration for cystitis. 4. Developed FDG uptake along the SVC segment of the chest port catheter may indicate thrombosis, possibly infectious or inflammatory process.
--- NOTE | 2025-05-21 13:00 | MR_ITS ---
WS: [id number] MRI HEAD WITH CONTRAST TECHNIQUE: Sagittal T1, T2 axial, T2 axial FLAIR, axial susceptibility weighted imaging, axial diffusion weighted images, and coronal T2 images were obtained. Pre and post-T1 axial and post T1 coronal images. ADC and FSPGR images. CLINICAL INFORMATION: breast cancer/restage COMPARISON: MRI 12/21/2024 FINDINGS: No evidence of restricted diffusion to suggest acute ischemia. Prior postoperative changes RIGHT frontal craniotomy with resection cavity in the RIGHT frontal lobe. Underlying encephalomalacia and gliosis. Mild ex vacuo dilatation anterior RIGHT lateral ventricle. Chronic lacunar infarcts RIGHT basal ganglia. Confluent periventricular T2 hyperintensity compatible with radiation treatment related changes. Moderate parenchymal volume loss. Normal vascular flow voids at the skull base. Previously described enhancement about the third ventricle is similar in appearance compared to multiple prior studies dating back to 01/15/2024 with small area of associated encephalomalacia along the LEFT thalamus. This appears slightly more prominent and confluent today likely due to technique and slice thickness otherwise unchanged. No evidence of increasing edema or mass effect. Otherwise no evidence of new enhancing or progressed metastatic disease. MR/MR head wo/w con [id number] IMPRESSION: 1. No evidence of new or progressive metastatic disease. 2. Stable RIGHT frontal craniotomy with resection cavity. Underlying encephalo malacia and gliosis in the RIGHT frontal lobe. 3. Similar-appearing confluent T2 hyperintensity in the periventricular white matter likely due to treatment related changes. 4. Chronic lacunar infarcts in the RIGHT basal ganglia similar to previous. 5. Enhancement along the third ventricle and LEFT thalamus is persistent. Enha ncement in the LEFT thalamus is more confluent today but probably due to techn ique and slice thickness. No evidence of increasing edema or mass effect. 6. No other remarkable changes compared to previous.
[2025-05-21] MEDS: gadobenate dimeglumine 20 mL vial IV (13:46)
[2025-05-24 09:29] LABS: Hematocrit 37.7 % (36-47); Hemoglobin 12.20 g/dL (11.27-16.99); Mean Corpuscular HGB Conc 32.4 g/dL (30-55); Mean Corpuscular Hemoglobin 29.1 pg (27-33); Mean Corpuscular Volume 90.0 fl (85-98); Nucleated Red Blood Cells % 0 %; Platelet Count 391 10^3/cmm (157-399); Red Blood Count 4.19 10^6/uL (3.85-5.65); White Blood Count 8.94 10^3/uL (3.29-11.43)
[2025-05-24 10:01] LABS: Alanine Aminotransferase 13 U/L (0-33); Albumin Level 4.1 g/dL (3.5-5.2); Alkaline Phosphatase 123 U/L (35-105); Anion Gap 13.1 (5-19); Aspartate Amino Transferase 15 U/L (0-32); Blood Urea Nitrogen 22 mg/dL (6-20); CA 15-3 17.0 U/mL (0-25); Calcium 9.5 mg/dL (8.5-10.5); Carbon Dioxide 28 mmol/L (22-29); Chloride 106 mmol/L (98-107); Globulin 2.9 g/dL (1.3-4.6); Glucose 79 mg/dL (65-115); Osmolality Calculated 298 mOsm/kg (285-295); Potassium 4.1 mmol/L (3.5-5.1); Sodium 143 mmol/L (136-145); Total Protein 7.0 g/dL (6.6-8.7)
[2025-05-27 13:45] VITALS: BP 116/82; PULSE 67; RESP 17; TEMP 35.9; O2SAT 96
[2025-05-31 14:11] VITALS: BP 129/80; PULSE 62; RESP 16; TEMP 35.9; O2SAT 98
[2025-05-31 15:35] VITALS: BP 121/74; PULSE 79; RESP 16; TEMP 35.9; O2SAT 96
[2025-06-02 14:13] VITALS: BP 99/63; PULSE 67; RESP 17; TEMP 36.7; O2SAT 96
[2025-06-02 15:30] VITALS: BP 106/64; PULSE 62; RESP 16; TEMP 36.1; O2SAT 99
== END 2025-06-06 23:59 | disposition home or self-care (01) ==
PROVIDERS: PCP Family Medicine; Visit Provider Internal Medicine Medical Oncology
DX: Z53.9 Procedure and treatment not carried out, unspecified reason; C50.912 Malignant neoplasm of unspecified site of left female breast; Z79.899 Other long term (current) drug therapy
CPT/HCPCS: 70553; 78815; 80053; 85025; 86300; 96360; 96368; 96413; A9552; J7030; J7050; J9999; Q5117

== ENCOUNTER 2025-07-05 09:30 | Oncology outpatient (recurring) (ONCR) | payer BC, SELFPAY ==
[2025-06-07 16:03] VITALS: BP 103/63; PULSE 83; RESP 16; TEMP 36.4; O2SAT 98
[2025-06-10 15:48] VITALS: BP 101/65; PULSE 74; RESP 17; TEMP 35.7; O2SAT 100
[2025-06-14 08:54] LABS: Hematocrit 37.2 % (36-47); Hemoglobin 11.90 g/dL (11.27-16.99); Mean Corpuscular HGB Conc 32.0 g/dL (30-55); Mean Corpuscular Hemoglobin 29.0 pg (27-33); Mean Corpuscular Volume 90.7 fl (85-98); Nucleated Red Blood Cells % 0 %; Platelet Count 364 10^3/cmm (157-399); Red Blood Count 4.10 10^6/uL (3.85-5.65); White Blood Count 7.53 10^3/uL (3.29-11.43)
[2025-06-14 09:19] LABS: Alanine Aminotransferase 15 U/L (0-33); Albumin Level 4.0 g/dL (3.5-5.2); Alkaline Phosphatase 116 U/L (35-105); Anion Gap 16.1 (5-19); Aspartate Amino Transferase 16 U/L (0-32); Blood Urea Nitrogen 23 mg/dL (6-20); CA 15-3 17.7 U/mL (0-25); Calcium 9.1 mg/dL (8.5-10.5); Carbon Dioxide 23 mmol/L (22-29); Chloride 108 mmol/L (98-107); Globulin 2.7 g/dL (1.3-4.6); Glucose 102 mg/dL (65-115); Osmolality Calculated 300 mOsm/kg (285-295); Potassium 4.1 mmol/L (3.5-5.1); Sodium 143 mmol/L (136-145); Total Protein 6.7 g/dL (6.6-8.7)
[2025-06-14 11:31] VITALS: BP 120/66; PULSE 73; TEMP 36.4
[2025-06-17 15:35] VITALS: BP 109/68; PULSE 87; RESP 17; TEMP 36.6; O2SAT 98
[2025-06-24 14:16] VITALS: BP 112/70; PULSE 64; RESP 17; TEMP 35.7; O2SAT 97
[2025-06-28 15:27] VITALS: BP 131/86; PULSE 61; RESP 16; TEMP 37.1; O2SAT 99
[2025-07-05 09:44] LABS: Hematocrit 40.1 % (36-47); Hemoglobin 13.00 g/dL (11.27-16.99); Mean Corpuscular HGB Conc 32.4 g/dL (30-55); Mean Corpuscular Hemoglobin 29.1 pg (27-33); Mean Corpuscular Volume 89.7 fl (85-98); Nucleated Red Blood Cells % 0 %; Platelet Count 385 10^3/cmm (157-399); Red Blood Count 4.47 10^6/uL (3.85-5.65); White Blood Count 6.59 10^3/uL (3.29-11.43)
[2025-07-05 09:59] LABS: Alanine Aminotransferase 11 U/L (0-33); Albumin Level 4.2 g/dL (3.5-5.2); Alkaline Phosphatase 125 U/L (35-105); Anion Gap 16.6 (5-19); Aspartate Amino Transferase 16 U/L (0-32); Blood Urea Nitrogen 21 mg/dL (6-20); Calcium 9.4 mg/dL (8.5-10.5); Carbon Dioxide 24 mmol/L (22-29); Chloride 103 mmol/L (98-107); Globulin 2.6 g/dL (1.3-4.6); Glucose 104 mg/dL (65-115); Osmolality Calculated 293 mOsm/kg (285-295); Potassium 3.6 mmol/L (3.5-5.1); Sodium 140 mmol/L (136-145); Total Protein 6.8 g/dL (6.6-8.7)
[2025-07-05 10:44] LABS: CA 15-3 18.3 U/mL (0-25)
[2025-07-05] MEDS: TRASTUZUMAB ANNS IV (11:44)
[2025-07-05] MEDS: SODIUM CHLORIDE 0.9% IV (11:44)
== END 2025-07-07 23:59 | disposition home or self-care (01) ==
PROVIDERS: Nurse Practitioner Family; PCP Family Medicine; Visit Provider Internal Medicine Medical Oncology
DX: Z53.9 Procedure and treatment not carried out, unspecified reason; Z51.12 Encounter for antineoplastic immunotherapy; C50.919 Malignant neoplasm of unspecified site of unspecified female breast; Z79.899 Other long term (current) drug therapy
CPT/HCPCS: 80053; 85025; 86300; 96360; 96361; 96366; 96413; J7030; J7050; J9999; Q5117